=== PATIENT | female | born 1950 | race American Indian/Alaskan Native ===

== ENCOUNTER 2016-12-28 15:09 | Emergency (ER) | payer MEDICARE ==
[2016-12-28 15:39] VITALS: BP 128/75
--- NOTE | 2016-12-29 07:25 | XRay Report ---
LEFT KNEE, 3 views: History: Left knee pain after fall. The bony architecture is intact without evidence of fracture or dislocation. No significant soft tissue abnormality is seen. IMPRESSION: Left knee within normal limits.
== END 2016-12-28 19:20 | disposition left against medical advice (07) ==
LOC: ED 15:09
DX: M25.562 Pain in left knee (principal); I63.9 Cerebral infarction, unspecified; E11.9 Type 2 diabetes mellitus without complications; I10 Essential (primary) hypertension; Z53.21 Procedure and treatment not carried out due to patient leaving prior to being seen by health care provider

== ENCOUNTER 2018-03-01 12:27 | Inpatient (IN) | payer MEDICARE ==
--- NOTE | 2018-03-01 12:59 | Emergency Department Report ---
HPI - HPI HPI: 67-year-old female presents to the emergency department, driving herself in to be seen, with complaint of neck pain that has been going on since last night. She presents with a low-grade fever but denies having any symptoms of having a fever. She denies having a cough or any dysuria. She denies any headache, vision changes, chest pain, shortness of breath, nausea, vomiting. She took some type of xbsx-cji-qjmnqgd pain medication this morning without much relief. She has a past medical history of hypertension, diabetes, hyperlipidemia. Her primary care physician is Dr. Jese Jason. No recent travel or sick contacts at home. <YOSEF GALAVIZ S - Last Filed: 03/01/18 19:33> <CAROLINE SANDOVAL - Last Filed: 03/02/18 07:16> - General Chief Complaint: Neck Pain/Injury Time Seen by Provider: 03/01/18 12:47 ED Past Medical Hx - Past Medical History Hx Hypertension: Yes Hx CVA: Yes Hx Diabetes: Yes - Social History Smoking Status: Never Smoker Substance Use Type: None <YOSEF GALAVIZ S - Last Filed: 03/01/18 19:33> <CAROLINE SANDOVAL S - Last Filed: 03/02/18 07:16> - Medications Home Medications: Home Medications Medication Instructions Recorded Confirmed Last Taken Type Oseltamivir [Tamiflu] 75 mg PO BID #10 cap 08/02/16 Unknown Rx Amlodipine Besylate [Norvasc] 10 mg PO DAILY 03/02/18 03/02/18 02/28/18 History Carvedilol [Coreg] 6.25 mg PO BID 03/02/18 03/02/18 02/28/18 History Clopidogrel [Plavix] 75 mg PO QDAY 03/02/18 03/02/18 02/28/18 History Glimepiride [Amaryl] 2 mg PO QAM 03/02/18 03/02/18 02/28/18 History Losartan Potassium 100 mg PO DAILY 03/02/18 03/02/18 02/28/18 History Simvastatin [Zocor TAB] 40 mg PO QHS 03/02/18 03/02/18 02/28/18 History ED Review of Systems ROS: Stated complaint: SEVERE NECK PAIN Other details as noted in HPI Constitutional: denies: chills, weakness Eyes: denies: eye pain, eye discharge, vision change ENT: denies: ear pain, throat pain Respiratory: denies: cough, shortness of breath, wheezing Cardiovascular: denies: chest pain, palpitations Gastrointestinal: denies: abdominal pain, nausea, diarrhea Genitourinary: denies: urgency, dysuria, discharge Musculoskeletal: other (neck pain). denies: back pain Skin: denies: rash, lesions Neurological: denies: headache, weakness, paresthesias <YOSEF GALAVIZ S - Last Filed: 03/01/18 19:33> ROS: Stated complaint: SEVERE NECK PAIN Other details as noted in HPI <CAROLINE SANDOVAL S - Last Filed: 03/02/18 07:16> Physical Exam - Physical Exam Vital Signs: Vital Signs 03/01/18 12:33 Temperature 101.5 F H Pulse Rate 84 Respiratory 20 Rate Blood Pressure 166/138 O2 Sat by Pulse 96 Oximetry <YOSEF GALAVIZ S - Last Filed: 03/01/18 19:33> - Physical Exam Vital Signs: Vital Signs 03/01/18 03/01/18 03/01/18 12:33 13:39 13:45 Temperature 101.5 F H Pulse Rate 84 91 H 91 H Respiratory 20 22 Rate Blood Pressure 166/138 153/77 O2 Sat by Pulse 96 99 Oximetry 03/01/18 03/01/18 03/01/18 14:05 14:15 14:30 Temperature Pulse Rate 89 89 86 Respiratory 21 22 18 Rate Blood Pressure 153/77 137/74 144/71 O2 Sat by Pulse 99 100 98 Oximetry 03/01/18 03/01/18 03/01/18 14:45 15:00 15:15 Temperature Pulse Rate 88 84 85 Respiratory 23 27 H 26 H Rate Blood Pressure 129/67 140/67 141/73 O2 Sat by Pulse 99 97 99 Oximetry 03/01/18 03/01/18 03/01/18 15:31 15:45 16:00 Temperature Pulse Rate 84 85 84 Respiratory 25 H 22 27 H Rate Blood Pressure 94/71 136/70 132/67 O2 Sat by Pulse 97 98 Oximetry 03/01/18 03/01/18 03/01/18 16:15 16:31 16:37 Temperature 102.8 F H Pulse Rate 86 88 Respiratory 24 20 Rate Blood Pressure 132/67 120/52 O2 Sat by Pulse 97 98 Oximetry 03/01/18 03/01/18 03/01/18 16:45 17:17 17:31 Temperature Pulse Rate 85 86 90 Respiratory 17 19 18 Rate Blood Pressure 118/67 O2 Sat by Pulse 99 97 98 Oximetry 03/01/18 03/01/18 03/01/18 17:45 18:01 18:38 Temperature Pulse Rate 90 88 91 H Respiratory 18 22 29 H Rate Blood Pressure O2 Sat by Pulse 98 98 97 Oximetry 03/01/18 03/01/18 03/01/18 18:45 19:00 19:15 Temperature Pulse Rate 91 H 94 H 98 H Respiratory 30 H 28 H 26 H Rate Blood Pressure 140/65 140/65 136/70 O2 Sat by Pulse 96 96 Oximetry 03/01/18 03/01/18 03/01/18 19:31 19:45 20:00 Temperature Pulse Rate 97 H 100 H 98 H Respiratory 24 30 H 22 Rate Blood Pressure 146/81 146/81 151/74 O2 Sat by Pulse 99 98 99 Oximetry <CAROLINE SANDOVAL S - Last Filed: 03/02/18 07:16> ED Course Vital Signs 03/01/18 12:33 Temperature 101.5 F H Pulse Rate 84 Respiratory 20 Rate Blood Pressure 166/138 O2 Sat by Pulse 96 Oximetry <YOSEF GALAVIZ S - Last Filed: 03/01/18 19:33> Vital Signs 03/01/18 03/01/18 03/01/18 12:33 13:39 13:45 Temperature 101.5 F H Pulse Rate 84 91 H 91 H Respiratory 20 22 Rate Blood Pressure 166/138 153/77 O2 Sat by Pulse 96 99 Oximetry 03/01/18 03/01/18 03/01/18 14:05 14:15 14:30 Temperature Pulse Rate 89 89 86 Respiratory 21 22 18 Rate Blood Pressure 153/77 137/74 144/71 O2 Sat by Pulse 99 100 98 Oximetry 03/01/18 03/01/18 03/01/18 14:45 15:00 15:15 Temperature Pulse Rate 88 84 85 Respiratory 23 27 H 26 H Rate Blood Pressure 129/67 140/67 141/73 O2 Sat by Pulse 99 97 99 Oximetry 03/01/18 03/01/18 03/01/18 15:31 15:45 16:00 Temperature Pulse Rate 84 85 84 Respiratory 25 H 22 27 H Rate Blood Pressure 94/71 136/70 132/67 O2 Sat by Pulse 97 98 Oximetry 03/01/18 03/01/18 03/01/18 16:15 16:31 16:37 Temperature 102.8 F H Pulse Rate 86 88 Respiratory 24 20 Rate Blood Pressure 132/67 120/52 O2 Sat by Pulse 97 98 Oximetry 03/01/18 03/01/18 03/01/18 16:45 17:17 17:31 Temperature Pulse Rate 85 86 90 Respiratory 17 19 18 Rate Blood Pressure 118/67 O2 Sat by Pulse 99 97 98 Oximetry 03/01/18 03/01/18 03/01/18 17:45 18:01 18:38 Temperature Pulse Rate 90 88 91 H Respiratory 18 22 29 H Rate Blood Pressure O2 Sat by Pulse 98 98 97 Oximetry 03/01/18 03/01/18 03/01/18 18:45 19:00 19:15 Temperature Pulse Rate 91 H 94 H 98 H Respiratory 30 H 28 H 26 H Rate Blood Pressure 140/65 140/65 136/70 O2 Sat by Pulse 96 96 Oximetry 03/01/18 03/01/18 03/01/18 19:31 19:45 20:00 Temperature Pulse Rate 97 H 100 H 98 H Respiratory 24 30 H 22 Rate Blood Pressure 146/81 146/81 151/74 O2 Sat by Pulse 99 98 99 Oximetry <CAROLINE SANDOVAL S - Last Filed: 03/02/18 07:16> - Lumbar Puncture Consent Obtained: written consent Time Out Performed: Yes Indication for Procedure: fever work up, other (stiff neck) Patient Position: Sitting Upright/Leaning F Local Anesthetic Used: Lidocaine 1% Amount of anesthesia used (mls): 2 Spinal Needle Gauge: 22G Spinal Needle Length: 2in Interspace Used: L3-L4 Fluid Initially Obtained: clear Complications: none Patient Tolerated Procedure: well <YOSEF GALAVIZ S - Last Filed: 03/01/18 19:33> ED Medical Decision Making - Lab Data Result diagrams: 03/01/18 12:51 03/01/18 12:55 <YOSEF GALAVIZ S - Last Filed: 03/01/18 19:33> - Lab Data Result diagrams: 03/02/18 04:04 03/02/18 04:04 <CAROLINE SANDOVAL S - Last Filed: 03/02/18 07:16> Critical care attestation.: If time is entered above; I have spent that time in minutes in the direct care of this critically ill patient, excluding procedure time. <YOSEF GALAVIZ - Last Filed: 03/01/18 19:33> Critical care attestation.: If time is entered above; I have spent that time in minutes in the direct care of this critically ill patient, excluding procedure time. <CAROLINE SANDOVAL S - Last Filed: 03/02/18 07:16> ED Disposition Is pt being admited?: Yes Time of Disposition: 19:35 <YOSEF GALAVIZ S - Last Filed: 03/01/18 19:33> <CAROLINE SANDOVAL - Last Filed: 03/02/18 07:16> Disposition: DC-09 OP ADMIT IP TO THIS HOSP Condition: Fair
[2018-03-01] MEDS ORDERED: VALIUM IV ONE (13:22)
[2018-03-01] MEDS ORDERED: LOPRESSOR IV ONE (13:22)
[2018-03-01 13:23] LABS: Albumin 4.3 g/dL (3.9-5); Calcium 9.7 mg/dL (8.4-10.2)
[2018-03-01 13:23] LABS: Hematocrit 31.6 % (30.3-42.9); Hemoglobin 10.3 gm/dl (10.1-14.3); Mean Corpuscular HGB Conc 33 % (30-34); Mean Corpuscular Hemoglobin 31 pg (28-32); Mean Corpuscular Volume 96 fl (79-97); Platelet Count 234 K/mm3 (140-440); Red Blood Count 3.29 M/mm3 (3.65-5.03)
[2018-03-01] MEDS ORDERED: TYLENOL PO ONE ×2 (13:23→19:37)
[2018-03-01] MEDS ORDERED: FLEXERIL PO ONE (13:27)
[2018-03-01] MEDS ORDERED: MORPHINE IV ONE ×2 (14:08→17:56)
--- NOTE | 2018-03-01 14:21 | XRay Report ---
AP CHEST: HISTORY: Fever Mild cardiomegaly is suspected which appears to be new since 08/02/16. Normal pulmonary vascularity. The lungs are clear. No pleural effusion or pneumothorax. The bony structures are grossly intact. IMPRESSION: Mild cardiomegaly. Lungs clear.
[2018-03-01 14:24] LABS: Basophils % (Manual) 0 % (0.0-1.8); Eosinophils % (Manual) 0 % (0.0-4.3); Total Cells Counted 100
[2018-03-01 14:25] LABS: Anisocytosis 1+; Platelet Estimate Cons
[2018-03-01 16:59] LABS: Bacteria,Urine 1+ /HPF (Negative); Bilirubin,Urine NEG (Negative); Blood,Urine NEG (Negative); Color,Urine Yellow (Yellow); Mucus,Urine FEW /HPF; Urobilinogen,Urine < 2.0 mg/dL (<2.0)
--- NOTE | 2018-03-01 17:26 | Cat Scan Report ---
FINAL REPORT PROCEDURE: CT HEAD/BRAIN WO CON TECHNIQUE: Computerized tomography of the head was performed without contrast material. HISTORY: Headache COMPARISON: No prior studies are available for comparison. FINDINGS: No CT evidence of intracranial hemorrhage, acute territorial infarction, or hydrocephalus. Although not fully evaluated, the pituitary gland may be enlarged. There are mild chronic microvascular ischemic changes, with white matter low-attenuation identified. No acute fracture is seen. The visualized paranasal sinuses and mastoids are aerated. IMPRESSION: Although not fully evaluated, the pituitary gland may be enlarged. Further evaluation with dedicated MRI of the sella with contrast could be obtained.
[2018-03-01] MEDS ORDERED: XYLOCAINE 1% 20 mL ONE (17:37)
[2018-03-01] MEDS ORDERED: NACL 0.9% 1000 ML 1,000 ML IV ONE (17:55)
[2018-03-01] MEDS ORDERED: ROCEPHIN/NS 2 GM/100 ML 2 GM/100 ML BAG IV ONE (17:57)
[2018-03-01] MEDS ORDERED: VANCOMYCIN 1,250 MG in NACL 0.9% 500 ML 500 ML IV ONE (17:57)
--- NOTE | 2018-03-01 18:27 | Cat Scan Report ---
FINAL REPORT PROCEDURE: CT CERVICAL SPINE WO CON TECHNIQUE: Computerized tomography of the cervical spine was performed from the skull base to T1 without contrast material. HISTORY: neck pain COMPARISON: No prior studies are available for comparison. FINDINGS: There is straightening of the usual cervical lordosis. There are multilevel degenerative disc changes, with disc space narrowing and osteophyte formation. There are osteoarthritic changes of the atlantodental articulation. There is a chronic appearing defect in the posterior arch of C1, which is likely developmental. There is no acute fracture or subluxation identified. There is bilateral cervical lymphadenopathy, with significantly enlarged lymph nodes, measuring up to 13 millimeters short axis. IMPRESSION: No acute osseous abnormality is seen. Bilateral significant cervical adenopathy. Findings could be related to an infectious or inflammatory process. Recommend further evaluation to exclude metastatic disease process.
[2018-03-01 19:05] LABS: Appearance,CSF Clear; Red Blood Cell,CSF 0 /mm3 (0-0); White Blood Cell,CSF 1 /mm3 (1-10)
[2018-03-01 19:06] LABS: Appearance,CSF Clear; Red Blood Cell,CSF 0 /mm3 (0-0); White Blood Cell,CSF 1 /mm3 (1-10)
[2018-03-01 19:19] LABS: Basophils CSF 0 %
[2018-03-01 19:20] LABS: Basophils CSF 0 %
--- NOTE | 2018-03-01 21:40 | XRay Report ---
FINAL REPORT PROCEDURE: XR SPINE LUMBOSACRAL 2-3V TECHNIQUE: Lumbar spine radiographs, including AP, cross-table lateral, and lumbosacral spot views. CPT 86459 HISTORY: back pain COMPARISON: No prior studies are available for comparison. FINDINGS: Vertebral height and alignment are within normal limits. There is mild degree narrowing of the intervertebral disc space at L3-4 through L5-S1 associated with mild to moderate degree marginal osteophyte formation. Pre and paravertebral soft tissues are within normal limits. IMPRESSION: Multilevel lumbar spondylosis No acute fracture.
--- NOTE | 2018-03-01 21:42 | XRay Report ---
FINAL REPORT PROCEDURE: XR SPINE THORACIC 3V TECHNIQUE: Thoracic spine radiographs including AP, lateral, and Swimmer's views. CPT 11655 HISTORY: Back pain COMPARISON: No prior studies are available for comparison. FINDINGS: Vertebral height is within normal limits. There is evidence of idiopathic skeletal hyperostosis. An acute fracture is not identified. Subtle dextroscoliosis of the thoracic spine is noted. Pre and paravertebral soft tissues are within normal limits. Intervertebral disc spaces are well maintained. IMPRESSION: No acute abnormality..
--- NOTE | 2018-03-01 22:18 | History and Physical Report ---
History of Present Illness Date of examination: 03/01/18 Date of admission: 03/01/18 19:35 Chief complaint: CC Severe neck pain 1 day History of present illness: VANESA: 67-year-old female presents to the emergency department, driving herself in to be seen, with complaints of neck pain that has been going on since last night. She presents with a low-grade fever but denies having any symptoms of having a fever.Pain is 10/10 She denies having a cough or any dysuria. She denies any headache, vision changes, chest pain, shortness of breath, nausea, vomiting. She took some type of pknn-sbf-cizazul pain medication this morning without much relief. She has a past medical history of hypertension, diabetes, hyperlipidemia. No recent travel or sick contacts at home. Past Medical History Hypertension: Yes CVA: Yes Diabetes: Yes Social History Smoking Status: Never Smoker Substance Use Type: None Medications Home Medications: Home Medications Medication Instructions Recorded Confirmed Last Taken Type Oseltamivir [Tamiflu] 75 mg PO BID #10 cap 08/02/16 Unknown Rx Review of systems ROS: Stated complaint: SEVERE NECK PAIN Other details as noted in HPI Constitutional: denies: chills, weakness Eyes: denies: eye pain, eye discharge, vision change ENT: denies: ear pain, throat pain Respiratory: denies: cough, shortness of breath, wheezing Cardiovascular: denies: chest pain, palpitations Gastrointestinal: denies: abdominal pain, nausea, diarrhea Genitourinary: denies: urgency, dysuria, discharge Musculoskeletal: other (neck pain). denies: back pain Skin: denies: rash, lesions Neurological: denies: headache, weakness, paresthesias Medications and Allergies Allergies Allergy/AdvReac Type Severity Reaction Status Date / Time No Known Allergies Allergy Verified 03/01/18 23:01 Home Medications Medication Instructions Recorded Confirmed Last Taken Type Oseltamivir [Tamiflu] 75 mg PO BID #10 cap 08/02/16 Unknown Rx Amlodipine Besylate [Norvasc] 10 mg PO DAILY 03/02/18 03/02/18 02/28/18 History Carvedilol [Coreg] 6.25 mg PO BID 03/02/18 03/02/18 02/28/18 History Clopidogrel [Plavix] 75 mg PO QDAY 03/02/18 03/02/18 02/28/18 History Glimepiride [Amaryl] 2 mg PO QAM 03/02/18 03/02/18 02/28/18 History Losartan Potassium 100 mg PO DAILY 03/02/18 03/02/18 02/28/18 History Simvastatin [Zocor TAB] 40 mg PO QHS 03/02/18 03/02/18 02/28/18 History Exam - Constitutional Vitals: Temp Pulse Resp BP Pulse Ox 102.8 F H 98 H 22 151/74 99 03/01/18 16:37 03/01/18 20:00 03/01/18 20:00 03/01/18 20:00 03/01/18 20:00 General appearance: Present: no acute distress, well-nourished - EENT Eyes: Present: PERRL ENT: hearing intact, clear oral mucosa - Neck Neck: Present: supple, normal ROM - Respiratory Respiratory effort: normal Respiratory: bilateral: CTA - Cardiovascular Heart rate: 70 Rhythm: regular Heart Sounds: Present: S1 & S2. Absent: rub, click - Extremities Extremities: no ischemia, pulses intact, pulses symmetrical, No edema Peripheral Pulses: within normal limits - Abdominal General gastrointestinal: Present: soft, non-tender, non-distended, normal bowel sounds Female genitourinary: Present: normal - Rectal Rectal Exam: deferred - Integumentary Integumentary: Present: clear, warm, dry - Musculoskeletal Musculoskeletal: gait normal, strength equal bilaterally - Psychiatric Psychiatric: appropriate mood/affect, intact judgment & insight - Neurologic Neurologic: CNII-XII intact, moves all extremities - Allied Health Allied health notes reviewed: nursing, case management Results - Labs CBC & Chem 7: 03/02/18 04:04 03/02/18 04:04 Labs: Laboratory Last Values WBC 9.0 K/mm3 (4.5-11.0) 03/01/18 12:51 RBC 3.29 M/mm3 (3.65-5.03) L 03/01/18 12:51 Hgb 10.3 gm/dl (10.1-14.3) 03/01/18 12:51 Hct 31.6 % (30.3-42.9) 03/01/18 12:51 MCV 96 fl (79-97) 03/01/18 12:51 MCH 31 pg (28-32) 03/01/18 12:51 MCHC 33 % (30-34) 03/01/18 12:51 RDW 15.0 % (13.2-15.2) 03/01/18 12:51 Plt Count 234 K/mm3 (140-440) 03/01/18 12:51 Add Manual Diff Complete 03/01/18 12:51 Total Counted 100 03/01/18 12:51 Seg Neuts % (Manual) 42.0 % (40.0-70.0) 03/01/18 12:51 Band Neutrophils % 0 % 03/01/18 12:51 Lymphocytes % (Manual) 55.0 % (13.4-35.0) H 03/01/18 12:51 Reactive Lymphs % (Man) 1.0 % 03/01/18 12:51 Monocytes % (Manual) 2.0 % (0.0-7.3) 03/01/18 12:51 Eosinophils % (Manual) 0 % (0.0-4.3) 03/01/18 12:51 Basophils % (Manual) 0 % (0.0-1.8) 03/01/18 12:51 Metamyelocytes % 0 % 03/01/18 12:51 Myelocytes % 0 % 03/01/18 12:51 Promyelocytes % 0 % 03/01/18 12:51 Blast Cells % 0 % 03/01/18 12:51 Nucleated RBC % Not Reportable 03/01/18 12:51 Seg Neutrophils # Man 3.8 K/mm3 (1.8-7.7) 03/01/18 12:51 Band Neutrophils # 0.0 K/mm3 03/01/18 12:51 Lymphocytes # (Manual) 5.0 K/mm3 (1.2-5.4) 03/01/18 12:51 Abs React Lymphs (Man) 0.1 K/mm3 03/01/18 12:51 Monocytes # (Manual) 0.2 K/mm3 (0.0-0.8) 03/01/18 12:51 Eosinophils # (Manual) 0.0 K/mm3 (0.0-0.4) 03/01/18 12:51 Basophils # (Manual) 0.0 K/mm3 (0.0-0.1) 03/01/18 12:51 Metamyelocytes # 0.0 K/mm3 03/01/18 12:51 Myelocytes # 0.0 K/mm3 03/01/18 12:51 Promyelocytes # 0.0 K/mm3 03/01/18 12:51 Blast Cells # 0.0 K/mm3 03/01/18 12:51 WBC Morphology Not Reportable 03/01/18 12:51 Hypersegmented Neuts Not Reportable 03/01/18 12:51 Hyposegmented Neuts Not Reportable 03/01/18 12:51 Hypogranular Neuts Not Reportable 03/01/18 12:51 Smudge Cells Not Reportable 03/01/18 12:51 Toxic Granulation Not Reportable 03/01/18 12:51 Toxic Vacuolation Not Reportable 03/01/18 12:51 Dohle Bodies Not Reportable 03/01/18 12:51 Pelger-Huet Anomaly Not Reportable 03/01/18 12:51 Mina Rods Not Reportable 03/01/18 12:51 Platelet Estimate Cons 03/01/18 12:51 Clumped Platelets Not Reportable 03/01/18 12:51 Plt Clumps, EDTA Not Reportable 03/01/18 12:51 Large Platelets Not Reportable 03/01/18 12:51 Giant Platelets Not Reportable 03/01/18 12:51 Platelet Satelliting Not Reportable 03/01/18 12:51 Plt Morphology Comment Not Reportable 03/01/18 12:51 RBC Morphology Not Reportable 03/01/18 12:51 Dimorphic RBCs Not Reportable 03/01/18 12:51 Polychromasia Not Reportable 03/01/18 12:51 Hypochromasia Not Reportable 03/01/18 12:51 Poikilocytosis Not Reportable 03/01/18 12:51 Anisocytosis 1+ 03/01/18 12:51 Microcytosis Not Reportable 03/01/18 12:51 Macrocytosis Not Reportable 03/01/18 12:51 Spherocytes Not Reportable 03/01/18 12:51 Pappenheimer Bodies Not Reportable 03/01/18 12:51 Sickle Cells Not Reportable 03/01/18 12:51 Target Cells Not Reportable 03/01/18 12:51 Tear Drop Cells Not Reportable 03/01/18 12:51 Ovalocytes Not Reportable 03/01/18 12:51 Helmet Cells Not Reportable 03/01/18 12:51 Patiño-[place] Bodies Not Reportable 03/01/18 12:51 [place] Rings Not Reportable 03/01/18 12:51 Rosaura Cells Not Reportable 03/01/18 12:51 Bite Cells Not Reportable 03/01/18 12:51 Crenated Cell Not Reportable 03/01/18 12:51 Elliptocytes Not Reportable 03/01/18 12:51 Acanthocytes (Spur) Not Reportable 03/01/18 12:51 Rouleaux Not Reportable 03/01/18 12:51 Hemoglobin C Crystals Not Reportable 03/01/18 12:51 Schistocytes Not Reportable 03/01/18 12:51 Malaria parasites Not Reportable 03/01/18 12:51 [place] Bodies Not Reportable 03/01/18 12:51 Hem Pathologist Commnt No 03/01/18 12:51 Sodium 136 mmol/L (137-145) L 03/01/18 12:55 Potassium 5.0 mmol/L (3.6-5.0) 03/01/18 12:55 Chloride 98.4 mmol/L (98-107) 03/01/18 12:55 Carbon Dioxide 22 mmol/L (22-30) 03/01/18 12:55 Anion Gap 21 mmol/L 03/01/18 12:55 BUN 24 mg/dL (7-17) H 03/01/18 12:55 Creatinine 1.6 mg/dL (0.7-1.2) H 03/01/18 12:55 Estimated GFR 39 ml/min 03/01/18 12:55 BUN/Creatinine Ratio 15 % 03/01/18 12:55 Glucose 170 mg/dL (65-100) H 03/01/18 12:55 Lactic Acid 0.50 mmol/L (0.7-2.0) L 03/01/18 12:55 Calcium 9.7 mg/dL (8.4-10.2) 03/01/18 12:55 Total Bilirubin 0.80 mg/dL (0.1-1.2) 03/01/18 12:55 AST 12 units/L (5-40) 03/01/18 12:55 ALT 9 units/L (7-56) 03/01/18 12:55 Alkaline Phosphatase 87 units/L (35-129) 03/01/18 12:55 Total Creatine Kinase 38 units/L (30-135) 03/01/18 12:55 Total Protein 7.2 g/dL (6.3-8.2) 03/01/18 12:55 Albumin 4.3 g/dL (3.9-5) 03/01/18 12:55 Albumin/Globulin Ratio 1.5 % 03/01/18 12:55 Urine Color Yellow (Yellow) 03/01/18 Unknown Urine Turbidity Clear (Clear) 03/01/18 Unknown Urine pH 5.0 (5.0-7.0) 03/01/18 Unknown Ur Specific [place] 1.016 (1.003-1.030) 03/01/18 Unknown Urine Protein 30 mg/dl mg/dL (Negative) 03/01/18 Unknown Urine Glucose (UA) Neg mg/dL (Negative) 03/01/18 Unknown Urine Ketones Neg mg/dL (Negative) 03/01/18 Unknown Urine Blood Neg (Negative) 03/01/18 Unknown Urine Nitrite Neg (Negative) 03/01/18 Unknown Urine Bilirubin Neg (Negative) 03/01/18 Unknown Urine Urobilinogen < 2.0 mg/dL (<2.0) 03/01/18 Unknown Ur Leukocyte Esterase Neg (Negative) 03/01/18 Unknown Urine WBC (Auto) 2.0 /HPF (0.0-6.0) 03/01/18 Unknown Urine RBC (Auto) 6.0 /HPF (0.0-6.0) 03/01/18 Unknown U Epithel Cells (Auto) 2.0 /HPF (0-13.0) 03/01/18 Unknown Urine Bacteria (Auto) 1+ /HPF (Negative) 03/01/18 Unknown Urine Mucus Few /HPF 03/01/18 Unknown CSF Appearance Clear 03/01/18 17:45 CSF Color Colorless 03/01/18 17:45 CSF WBC 1 /mm3 (1-10) 03/01/18 17:45 CSF RBC 0 /mm3 (0-0) 03/01/18 17:45 CSF Seg Neutrophils 0 % (0-6) 03/01/18 17:45 CSF Lymphocytes % 0 % (40-80) 03/01/18 17:45 CSF Reactive Lymphs 0 % 03/01/18 17:45 CSF Monocytes % 0 % (15-45) 03/01/18 17:45 CSF Eosinophils % 0 % 03/01/18 17:45 CSF Basophils 0 % 03/01/18 17:45 CSF Comment No cells seen 03/01/18 17:45 CSF Pathologist Review C 03/01/18 17:45 CSF Glucose 91 mg/dL 03/01/18 17:45 CSF Total Protein 33 mg/dL 03/01/18 17:45 - Imaging and Cardiology Chest x-ray: report reviewed (NAF) Imaging and Cardiology: Head CT IMPRESSION: Although not fully evaluated, the pituitary gland may be enlarged. Further evaluation with dedicated MRI of the sella with contrast could be obtained. C spine CT FINDINGS: There is straightening of the usual cervical lordosis. There are multilevel degenerative disc changes, with disc space narrowing and osteophyte formation. There are osteoarthritic changes of the atlantodental articulation. There is a chronic appearing defect in the posterior arch of C1, which is likely developmental. There is no acute fracture or subluxation identified. There is bilateral cervical lymphadenopathy, with significantly enlarged lymph nodes, measuring up to 13 millimeters short axis. IMPRESSION: No acute osseous abnormality is seen. Bilateral significant cervical adenopathy. Findings could be related to an infectious or inflammatory process. Recommend further evaluation to exclude metastatic disease process. L spine Significant spondylosis Assessment and Plan Advance Directives: Yes (FC) VTE prophylaxis?: Chemical Plan of care discussed with patient/family: Yes - Patient Problems (1) SIRS (systemic inflammatory response syndrome) Current Visit: Yes Status: Acute Plan to address problem: Patient hasfever andsevere neck pain LP was negative Initiated on Rocephin empirically (2) QUIRINO (acute kidney injury) Current Visit: Yes Status: Acute Plan to address problem: IV fluids for now (3) Cervical lymphadenopathy Current Visit: Yes Status: Acute Plan to address problem: CT chest ordered to r/o mediastinal Lymphadenopathy (4) Enlarged pituitary gland Current Visit: Yes Status: Chronic Plan to address problem: On CT heas Will defer to Hospitalist team reg MRI (5) HTN (hypertension) Current Visit: Yes Status: Chronic Qualifiers: Hypertension type: essential hypertension Qualified Code(s): I10 - Essential (primary) hypertension Plan to address problem: Cont antihypertensives (6) T2DM (type 2 diabetes mellitus) Current Visit: Yes Status: Chronic Qualifiers: Diabetes mellitus mcc insulin use: without material controller use Plan to address problem: Coverage for now (7) HLD (hyperlipidemia) Current Visit: Yes Status: Chronic Qualifiers: Hyperlipidemia type: mixed hyperlipidemia Qualified Code(s): E78.2 - Mixed hyperlipidemia Plan to address problem: Statins (8) DVT prophylaxis Current Visit: Yes Status: Acute Plan to address problem: on Lovenox
[2018-03-01] MEDS ORDERED: ZOFRAN IV PRN (22:19)
[2018-03-01] MEDS ORDERED: SODIUM CHLORIDE FLUSH SYRINGE 10 ML IV PRN (22:19)
[2018-03-01] MEDS ORDERED: MOTRIN PO PRN (22:19)
[2018-03-01] MEDS ORDERED: PERCOCET 5/325 PO PRN (22:19)
[2018-03-01] MEDS ORDERED: NACL 0.9% 1000 ML 1,000 ML IV SCH (23:00)
[2018-03-01] MEDS: TYLENOL PO PRN (23:10)
[2018-03-02] MEDS: MORPHINE IV PRN ×2 (03:55→17:53)
[2018-03-02 04:39] LABS: Hematocrit 28.5 % (30.3-42.9); Hemoglobin 9.5 gm/dl (10.1-14.3); Mean Corpuscular HGB Conc 33 % (30-34); Mean Corpuscular Hemoglobin 32 pg (28-32); Mean Corpuscular Volume 95 fl (79-97); Platelet Count 182 K/mm3 (140-440); Red Blood Count 3.01 M/mm3 (3.65-5.03)
[2018-03-02 05:14] LABS: Albumin 3.8 g/dL (3.9-5); Calcium 8.7 mg/dL (8.4-10.2)
[2018-03-02] MEDS ORDERED: NACL 0.9% 1000 ML 1,000 ML IV ONE (08:00)
[2018-03-02 08:42] LABS: Total Cells Counted 100
[2018-03-02 08:49] LABS: Band Neutrophils # (Manual) 0.1 K/mm3; Basophils % (Manual) 0 % (0.0-1.8); Eosinophils % (Manual) 0 % (0.0-4.3)
[2018-03-02 08:51] LABS: Anisocytosis 1+
[2018-03-02 08:52] LABS: Acanthocytes Few; Poikilocytosis 1+; Tear Drop Cells Few
[2018-03-02 08:53] LABS: Platelet Estimate Consistent w Auto
--- NOTE | 2018-03-02 09:44 | Cat Scan Report ---
CT CHEST WITHOUT CONTRAST INDICATION: Cervical lymphadenopathy. COMPARISON: None similar. FINDINGS: Noncontrast chest CT demonstrates borderline cardiomegaly. Mild coronary and aortic atherosclerotic calcifications. Assessment of the great vessels and for detecting subtle lymphadenopathy limited due to lack of IV contrast. However, extensive multistation intrathoracic right paratracheal, subcarinal and possibly hilar lymphadenopathy suspected. Large bilateral axillary lymph nodes also seen, the largest on the left approximately 6.5 x 4 cm as on axial image 44, series 2 and would be amenable to percutaneous imaging guided biopsy, if warranted. Patent central airway. No aortic aneurysm. Normal imaged thyroid. Few bilateral supraclavicular/lower cervical lymph nodes also seen. Few other bilateral subpectoral and chest wall lymph nodes also noted. Lungs grossly clear, though motion artifact partly degrades exam. An approximately 1 cm right cardiophrenic angle lymph node anteriorly, axial image 90, series 2 as also a 2.2 cm right retrocrural lymph node, axial image 91. Included upper abdominal extensive lymphadenopathy also noted. 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 CONCLUSION: 1. Extensive multistation intrathoracic, bilateral axillary and included upper abdominal lymphadenopathy on this limited, unenhanced exam may represent underlying lymphoma, amongst others, in this patient with known cervical lymphadenopathy, as described. Please correlate. 2. Few other incidental findings, as above. Thank you for the opportunity to participate in this patient's care.
[2018-03-02] MEDS ORDERED: NON-FORMULARY (Losartan Potassium [Losartan Potassium] 100 MG) PO SCH (10:00)
[2018-03-02] MEDS: PERCOCET 5/325 PO PRN ×2 (11:43→20:58)
[2018-03-02 11:44] LABS: Calcium 8.7 mg/dL (8.4-10.2)
[2018-03-02] MEDS: NORVASC PO SCH (11:44)
[2018-03-02] MEDS: COREG PO SCH ×2 (11:44→21:04)
[2018-03-02] MEDS: LOVENOX SUB-Q SCH (11:44)
[2018-03-02] MEDS: ROCEPHIN/NS 2 GM/100 ML 2 GM/100 ML BAG IV SCH (11:44)
[2018-03-02] MEDS: PLAVIX PO SCH (11:45)
[2018-03-02] MEDS: SODIUM CHLORIDE FLUSH SYRINGE 10 ML IV SCH ×2 (11:46→21:04)
[2018-03-02] MEDS: AMARYL PO SCH (11:57)
[2018-03-02] MEDS: NACL 0.9% 1000 ML 1,000 ML IV SCH (12:00)
[2018-03-02] MEDS: COZAAR PO SCH (12:00)
--- NOTE | 2018-03-02 12:58 | Progress Note ---
Assessment and Plan Assessment and plan: 67-year-old female was presented to the emergency department yesterday complaining of fever and neck pain for the last 2 days. Patient denied nausea, vomiting, headache. Neck pain SIRS evidenced by fever and tachycardia Bacteremia Chronic kidney disease - pain control - Patient was empirically placed on IV Rocephin - Blood cultures positive for group B streptococcus - ID consulted - CSF is negative DVT prophylaxis - On heparin Disposition - Continue inpatient care History Interval history: Patient was seen and evaluated this morning, patient is complaining neck pain. No nausea, vomiting, headache. Hospitalist Physical - Physical exam Narrative exam: Not in cardiopulmonary distress. The patient appeared well nourished and normally developed. Neck tenderness Vital signs as documented. Head exam is unremarkable. No scleral icterus . Neck is without jugular venous distension, thyromegaly, or carotid bruits. Lungs are clear to auscultation. Cardiac exam reveals regular rate and Rhythm. First and second heart sounds normal. No murmurs, rubs or gallops. Abdominal exam reveals normal bowel sounds, no masses, no organomegaly and no aortic enlargement. Extremities are nonedematous and both femoral and pedal pulses are normal. E LEARNING DEVELOPER: Alert and oriented 3. Negative meningeal signs - Constitutional Vitals: Temp Pulse Resp BP Pulse Ox 98.2 F 77 18 120/63 96 03/02/18 12:00 03/02/18 12:00 03/02/18 12:00 03/02/18 12:00 03/02/18 12:00 General appearance: Present: no acute distress, well-nourished Results - Labs CBC & Chem 7: 03/02/18 04:04 03/02/18 11:16 Labs: Laboratory Last Values WBC 10.2 K/mm3 (4.5-11.0) 03/02/18 04:04 RBC 3.01 M/mm3 (3.65-5.03) L 03/02/18 04:04 Hgb 9.5 gm/dl (10.1-14.3) L 03/02/18 04:04 Hct 28.5 % (30.3-42.9) L 03/02/18 04:04 MCV 95 fl (79-97) 03/02/18 04:04 MCH 32 pg (28-32) 03/02/18 04:04 MCHC 33 % (30-34) 03/02/18 04:04 RDW 15.0 % (13.2-15.2) 03/02/18 04:04 Plt Count 182 K/mm3 (140-440) 03/02/18 04:04 Lymph % (Auto) Board Worker 03/02/18 04:04 Lymph # Board Worker 03/02/18 04:04 Add Manual Diff Complete 03/01/18 12:51 Total Counted 100 03/02/18 04:04 Seg Neutrophils % Board Worker 03/02/18 04:04 Seg Neuts % (Manual) 18.0 % (40.0-70.0) L 03/02/18 04:04 Band Neutrophils % 1.0 % 03/02/18 04:04 Lymphocytes % (Manual) 68.0 % (13.4-35.0) H 03/02/18 04:04 Reactive Lymphs % (Man) 11.0 % 03/02/18 04:04 Monocytes % (Manual) 2.0 % (0.0-7.3) 03/02/18 04:04 Eosinophils % (Manual) 0 % (0.0-4.3) 03/02/18 04:04 Basophils % (Manual) 0 % (0.0-1.8) 03/02/18 04:04 Metamyelocytes % 0 % 03/02/18 04:04 Myelocytes % 0 % 03/02/18 04:04 Promyelocytes % 0 % 03/02/18 04:04 Blast Cells % 0 % 03/02/18 04:04 Nucleated RBC % Not Reportable 03/02/18 04:04 Seg Neutrophils # Man 1.8 K/mm3 (1.8-7.7) 03/02/18 04:04 Band Neutrophils # 0.1 K/mm3 03/02/18 04:04 Lymphocytes # (Manual) 6.9 K/mm3 (1.2-5.4) H 03/02/18 04:04 Abs React Lymphs (Man) 1.1 K/mm3 03/02/18 04:04 Monocytes # (Manual) 0.2 K/mm3 (0.0-0.8) 03/02/18 04:04 Eosinophils # (Manual) 0.0 K/mm3 (0.0-0.4) 03/02/18 04:04 Basophils # (Manual) 0.0 K/mm3 (0.0-0.1) 03/02/18 04:04 Metamyelocytes # 0.0 K/mm3 03/02/18 04:04 Myelocytes # 0.0 K/mm3 03/02/18 04:04 Promyelocytes # 0.0 K/mm3 03/02/18 04:04 Blast Cells # 0.0 K/mm3 03/02/18 04:04 Pathologist Review 03/02/18 04:04 WBC Morphology Not Reportable 03/02/18 04:04 Hypersegmented Neuts Not Reportable 03/02/18 04:04 Hyposegmented Neuts Not Reportable 03/02/18 04:04 Hypogranular Neuts Not Reportable 03/02/18 04:04 Smudge Cells Not Reportable 03/02/18 04:04 Toxic Granulation Not Reportable 03/02/18 04:04 Toxic Vacuolation Not Reportable 03/02/18 04:04 Dohle Bodies Not Reportable 03/02/18 04:04 Pelger-Huet Anomaly Not Reportable 03/02/18 04:04 Mina Rods Not Reportable 03/02/18 04:04 Platelet Estimate Consistent w auto 03/02/18 04:04 Clumped Platelets Not Reportable 03/02/18 04:04 Plt Clumps, EDTA Not Reportable 03/02/18 04:04 Large Platelets Not Reportable 03/02/18 04:04 Giant Platelets Not Reportable 03/02/18 04:04 Platelet Satelliting Not Reportable 03/02/18 04:04 Plt Morphology Comment Not Reportable 03/02/18 04:04 RBC Morphology Not Reportable 03/02/18 04:04 Dimorphic RBCs Not Reportable 03/02/18 04:04 Polychromasia Not Reportable 03/02/18 04:04 Hypochromasia Not Reportable 03/02/18 04:04 Poikilocytosis 1+ 03/02/18 04:04 Anisocytosis 1+ 03/02/18 04:04 Microcytosis Not Reportable 03/02/18 04:04 Macrocytosis Not Reportable 03/02/18 04:04 Spherocytes Not Reportable 03/02/18 04:04 Pappenheimer Bodies Not Reportable 03/02/18 04:04 Sickle Cells Not Reportable 03/02/18 04:04 Target Cells Not Reportable 03/02/18 04:04 Tear Drop Cells Few 03/02/18 04:04 Ovalocytes Not Reportable 03/02/18 04:04 Helmet Cells Not Reportable 03/02/18 04:04 Pat[place] Bodies Not Reportable 03/02/18 04:04 [place] Rings Not Reportable 03/02/18 04:04 [place]aura Cells Not Reportable 03/02/18 04:04 Bite Cells Not Reportable 03/02/18 04:04 Crenated Cell Not Reportable 03/02/18 04:04 Elliptocytes Few 03/02/18 04:04 Acanthocytes (Spur) Few 03/02/18 04:04 Rouleaux Not Reportable 03/02/18 04:04 Hemoglobin C Crystals Not Reportable 03/02/18 04:04 Schistocytes Not Reportable 03/02/18 04:04 Malaria parasites Not Reportable 03/02/18 04:04 [place] Bodies Not Reportable 03/02/18 04:04 Hem Pathologist Commnt Sent to pathology 03/02/18 04:04 Sodium 139 mmol/L (137-145) 03/02/18 11:16 Potassium 4.1 mmol/L (3.6-5.0) 03/02/18 11:16 Chloride 104.3 mmol/L (98-107) 03/02/18 11:16 Carbon Dioxide 18 mmol/L (22-30) L 03/02/18 11:16 Anion Gap 21 mmol/L 03/02/18 11:16 BUN 24 mg/dL (7-17) H 03/02/18 11:16 Creatinine 1.4 mg/dL (0.7-1.2) H 03/02/18 11:16 Estimated GFR 45 ml/min 03/02/18 11:16 BUN/Creatinine Ratio 17 % 03/02/18 11:16 Glucose 152 mg/dL (65-100) H 03/02/18 11:16 Hemoglobin A1c 6.4 % (4-6) H 03/02/18 00:31 Lactic Acid 0.50 mmol/L (0.7-2.0) L 03/01/18 12:55 Calcium 8.7 mg/dL (8.4-10.2) 03/02/18 11:16 Total Bilirubin 0.60 mg/dL (0.1-1.2) 03/02/18 04:04 AST 11 units/L (5-40) 03/02/18 04:04 ALT 7 units/L (7-56) 03/02/18 04:04 Alkaline Phosphatase 73 units/L (35-129) 03/02/18 04:04 Total Creatine Kinase 38 units/L (30-135) 03/01/18 12:55 Total Protein 6.3 g/dL (6.3-8.2) 03/02/18 04:04 Albumin 3.8 g/dL (3.9-5) L 03/02/18 04:04 Albumin/Globulin Ratio 1.5 % 03/02/18 04:04 Urine Color Yellow (Yellow) 03/01/18 Unknown Urine Turbidity Clear (Clear) 03/01/18 Unknown Urine pH 5.0 (5.0-7.0) 03/01/18 Unknown Ur Specific [place] 1.016 (1.003-1.030) 03/01/18 Unknown Urine Protein 30 mg/dl mg/dL (Negative) 03/01/18 Unknown Urine Glucose (UA) Neg mg/dL (Negative) 03/01/18 Unknown Urine Ketones Neg mg/dL (Negative) 03/01/18 Unknown Urine Blood Neg (Negative) 03/01/18 Unknown Urine Nitrite Neg (Negative) 03/01/18 Unknown Urine Bilirubin Neg (Negative) 03/01/18 Unknown Urine Urobilinogen < 2.0 mg/dL (<2.0) 03/01/18 Unknown Ur Leukocyte Esterase Neg (Negative) 03/01/18 Unknown Urine WBC (Auto) 2.0 /HPF (0.0-6.0) 03/01/18 Unknown Urine RBC (Auto) 6.0 /HPF (0.0-6.0) 03/01/18 Unknown U Epithel Cells (Auto) 2.0 /HPF (0-13.0) 03/01/18 Unknown Urine Bacteria (Auto) 1+ /HPF (Negative) 03/01/18 Unknown Urine Mucus Few /HPF 03/01/18 Unknown CSF Appearance Clear 03/01/18 17:45 CSF Color Colorless 03/01/18 17:45 CSF WBC 1 /mm3 (1-10) 03/01/18 17:45 CSF RBC 0 /mm3 (0-0) 03/01/18 17:45 CSF Seg Neutrophils 0 % (0-6) 03/01/18 17:45 CSF Lymphocytes % 0 % (40-80) 03/01/18 17:45 CSF Reactive Lymphs 0 % 03/01/18 17:45 CSF Monocytes % 0 % (15-45) 03/01/18 17:45 CSF Eosinophils % 0 % 03/01/18 17:45 CSF Basophils 0 % 03/01/18 17:45 CSF Comment No cells seen 03/01/18 17:45 CSF Pathologist Review C 03/01/18 17:45 CSF Glucose 91 mg/dL 03/01/18 17:45 CSF Total Protein 33 mg/dL 03/01/18 17:45
[2018-03-02] MEDS: PRAVACHOL PO SCH (21:04)
--- NOTE | 2018-03-02 21:51 | Consultation ---
History of Present Illness - Reason for Consult Consult date: 03/02/18 multiple lymph nodes/painfull. Requesting physician: ANIYAH BENAVIDES - History of Present Illness Thank you for this consult, patient seen/examined, record/notes reviewed, case d /w her. She states all that she is concerned about at the moment ,is the pain in the neck area. CT of the chest obviously reveals multiple LN, suspicious in nature. She will need tissue bx for dx.She will need pain control.will do some peculiar labs.will follow you. She may need BM bx if bx positive for Lymphoma. Most of her care will be out patient any how.For now, control pain. Past History Past Medical History: diabetes, hypertension, stroke Medications and Allergies Allergies Allergy/AdvReac Type Severity Reaction Status Date / Time No Known Allergies Allergy Verified 03/01/18 23:01 Home Medications Medication Instructions Recorded Confirmed Last Taken Type Oseltamivir [Tamiflu] 75 mg PO BID #10 cap 08/02/16 Unknown Rx Amlodipine Besylate [Norvasc] 10 mg PO DAILY 03/02/18 03/02/18 02/28/18 History Carvedilol [Coreg] 6.25 mg PO BID 03/02/18 03/02/18 02/28/18 History Clopidogrel [Plavix] 75 mg PO QDAY 03/02/18 03/02/18 02/28/18 History Glimepiride [Amaryl] 2 mg PO QAM 03/02/18 03/02/18 02/28/18 History Losartan Potassium 100 mg PO DAILY 03/02/18 03/02/18 02/28/18 History Simvastatin [Zocor TAB] 40 mg PO QHS 03/02/18 03/02/18 02/28/18 History Active Meds: Active Medications Acetaminophen (Tylenol) 650 mg PO Q4H PRN PRN Reason: Pain MILD(1-3)/Fever >100.5/SALMON Last Admin: 03/01/18 23:10 Dose: 650 mg Amlodipine Besylate (Norvasc) 10 mg PO DAILY [facility] Last Admin: 03/02/18 11:44 Dose: 10 mg Carvedilol (Coreg) 6.25 mg PO BID [facility] Last Admin: 03/02/18 21:04 Dose: 6.25 mg Clopidogrel Bisulfate (Plavix) 75 mg PO QDAY [facility] Last Admin: 03/02/18 11:45 Dose: 75 mg Enoxaparin Sodium (Lovenox) 40 mg SUB-Q QDAY [facility] Last Admin: 03/02/18 11:44 Dose: 40 mg Glimepiride (Amaryl) 2 mg PO QAMDIAB [facility] Last Admin: 03/02/18 11:57 Dose: 2 mg Ceftriaxone Sodium (Rocephin/Ns 2 Gm/100 Ml) 2 gm in 100 mls @ 200 mls/hr IV Q24HR [facility]; Protocol Last Admin: 03/02/18 11:44 Dose: 200 mls/hr Sodium Chloride (Nacl 0.9% 1000 Ml) 1,000 mls @ 75 mls/hr IV DIRECT [facility] Last Admin: 03/02/18 12:00 Dose: 75 mls/hr Ibuprofen (Motrin) 600 mg PO Q6H PRN PRN Reason: Pain, Mild (1-3) Losartan Potassium (Cozaar) 100 mg PO QDAY [facility] Last Admin: 03/02/18 12:00 Dose: Not Given Morphine Sulfate (Morphine) 2 mg IV Q4H PRN PRN Reason: Pain, Moderate (4-6) Last Admin: 03/02/18 17:53 Dose: 2 mg Ondansetron HCl (Zofran) 4 mg IV Q8H PRN PRN Reason: Nausea And Vomiting Oxycodone/Acetaminophen (Percocet 5/325) 2 tab PO Q6H PRN PRN Reason: Pain, Moderate (4-6) Last Admin: 03/02/18 20:58 Dose: 2 tab Pravastatin Sodium (Pravachol) 80 mg PO QHS [facility] Last Admin: 03/02/18 21:04 Dose: 80 mg Sodium Chloride (Sodium Chloride Flush Syringe 10 Ml) 10 ml IV BID [facility] Last Admin: 03/02/18 21:04 Dose: 10 ml Sodium Chloride (Sodium Chloride Flush Syringe 10 Ml) 10 ml IV PRN PRN PRN Reason: LINE FLUSH Review of Systems Constitutional: chronic pain Breasts: deferred Musculoskeletal: neck pain, low back pain Exam - Constitutional Vitals: Temp Pulse Resp BP Pulse Ox 99.1 F 83 20 138/76 100 03/02/18 19:59 03/02/18 21:04 03/02/18 19:59 03/02/18 21:04 08/02/18 19:59 General appearance: Present: mild distress - EENT Eyes: Present: PERRL ENT: hearing intact, clear oral mucosa - Neck Neck: Present: supple, normal ROM, other (tender lymphnodes) - Respiratory Respiratory effort: normal Respiratory: bilateral: CTA - Cardiovascular Heart Sounds: Present: S1 & S2. Absent: rub, click - Extremities Extremities: pulses symmetrical, No edema Peripheral Pulses: within normal limits - Abdominal General gastrointestinal: Present: soft, non-tender, non-distended, normal bowel sounds Female genitourinary: Present: deferred - Rectal Rectal Exam: deferred - Integumentary Integumentary: Present: clear, warm, dry - Musculoskeletal Musculoskeletal: gait normal, strength equal bilaterally - Psychiatric Psychiatric: appropriate mood/affect, intact judgment & insight - Neurologic Neurologic: CNII-XII intact, moves all extremities Results - Labs CBC & Chem 7: 03/02/18 04:04 03/02/18 11:16 Labs: Abnormal lab results 03/02/18 03/02/18 03/02/18 Range/Units 00:31 04:04 04:04 RBC 3.01 L (3.65-5.03) M/mm3 Hgb 9.5 L (10.1-14.3) gm/dl Hct 28.5 L (30.3-42.9) % Seg Neuts % (Manual) 18.0 L (40.0-70.0) % Lymphocytes % (Manual) 68.0 H (13.4-35.0) % Lymphocytes # (Manual) 6.9 H (1.2-5.4) K/mm3 Carbon Dioxide 19 L (22-30) mmol/L BUN 25 H (7-17) mg/dL Creatinine 1.6 H (0.7-1.2) mg/dL Glucose 113 H (65-100) mg/dL Hemoglobin A1c 6.4 H (4-6) % Albumin 3.8 L (3.9-5) g/dL 03/02/18 Range/Units 11:16 RBC (3.65-5.03) M/mm3 Hgb (10.1-14.3) gm/dl Hct (30.3-42.9) % Seg Neuts % (Manual) (40.0-70.0) % Lymphocytes % (Manual) (13.4-35.0) % Lymphocytes # (Manual) (1.2-5.4) K/mm3 Carbon Dioxide 18 L (22-30) mmol/L BUN 24 H (7-17) mg/dL Creatinine 1.4 H (0.7-1.2) mg/dL Glucose 152 H (65-100) mg/dL Hemoglobin A1c (4-6) % Albumin (3.9-5) g/dL Assessment and Plan - Patient Problems (1) Back pain Current Visit: Yes Status: Acute Qualifiers: Back pain location: thoracic back pain Chronicity: unspecified Back pain laterality: unspecified Qualified Code(s): M54.6 - Pain in thoracic spine Plan to address problem: Pain control. (2) QUIRINO (acute kidney injury) Current Visit: Yes Status: Acute Plan to address problem: corrective measures. (3) Neck pain Current Visit: Yes Status: Acute Plan to address problem: See notes.
[2018-03-02] MEDS ORDERED: NON-FORMULARY (Simvastatin 40 MG) PO SCH (22:00)
[2018-03-03] MEDS: PERCOCET 5/325 PO PRN ×3 (05:06→22:04)
--- NOTE | 2018-03-03 07:39 | Progress Note ---
Assessment and Plan Assessment and plan: 67-year-old female was presented to the emergency department complaining of fever and neck pain for the last 2 days. Patient denied nausea, vomiting, headache. Neck pain SIRS evidenced by fever and tachycardia Bacteremia withe GBSC; infectious disease doctor consulted, ID recommended 2 weeks of IV antibiotic, so patient needs outpatient IV antibiotic arrangement Chronic kidney disease Lymphoma; hematology/oncology consulted, ordered some tests and recommend outpatient follow-up in his office, lymph node biopsy was taken - pain control - Patient is on IV Rocephin - Blood cultures positive for group B streptococcus - CSF is negative for meningitis DVT prophylaxis - On heparin Disposition - Continue inpatient care History Interval history: Patient was seen and evaluated this morning, patient is still complaining neck pain. No fever, nausea, vomiting, headache. Hospitalist Physical - Physical exam Narrative exam: Not in cardiopulmonary distress. The patient appeared well nourished and normally developed. Neck tenderness Vital signs as documented. Head exam is unremarkable. No scleral icterus . Neck is without jugular venous distension, thyromegaly, or carotid bruits. Lungs are clear to auscultation. Cardiac exam reveals regular rate and Rhythm. First and second heart sounds normal. No murmurs, rubs or gallops. Abdominal exam reveals normal bowel sounds, no masses, no organomegaly and no aortic enlargement. Extremities are nonedematous and both femoral and pedal pulses are normal. Lymph nodes: axillary LAP ELECT[employer]ICIAN SHOP: Alert and oriented 3. Negative meningeal signs - Constitutional Vitals: Temp Pulse Resp BP Pulse Ox 98.6 F 73 18 140/73 96 03/03/18 03:05 03/03/18 03:05 03/03/18 03:05 03/03/18 03:05 03/03/18 03:05 General appearance: Present: mild distress Results - Labs CBC & Chem 7: 03/02/18 04:04 03/03/18 08:34 Labs: Laboratory Last Values WBC 10.2 K/mm3 (4.5-11.0) 03/02/18 04:04 RBC 3.01 M/mm3 (3.65-5.03) L 03/02/18 04:04 Hgb 9.5 gm/dl (10.1-14.3) L 03/02/18 04:04 Hct 28.5 % (30.3-42.9) L 03/02/18 04:04 MCV 95 fl (79-97) 03/02/18 04:04 MCH 32 pg (28-32) 03/02/18 04:04 MCHC 33 % (30-34) 03/02/18 04:04 RDW 15.0 % (13.2-15.2) 03/02/18 04:04 Plt Count 182 K/mm3 (140-440) 03/02/18 04:04 Lymph % (Auto) [employer] 03/02/18 04:04 Lymph # [employer] 03/02/18 04:04 Add Manual Diff Complete 03/01/18 12:51 Total Counted 100 03/02/18 04:04 Seg Neutrophils % [employer] 03/02/18 04:04 Seg Neuts % (Manual) 18.0 % (40.0-70.0) L 03/02/18 04:04 Band Neutrophils % 1.0 % 03/02/18 04:04 Lymphocytes % (Manual) 68.0 % (13.4-35.0) H 03/02/18 04:04 Reactive Lymphs % (Man) 11.0 % 03/02/18 04:04 Monocytes % (Manual) 2.0 % (0.0-7.3) 03/02/18 04:04 Eosinophils % (Manual) 0 % (0.0-4.3) 03/02/18 04:04 Basophils % (Manual) 0 % (0.0-1.8) 03/02/18 04:04 Metamyelocytes % 0 % 03/02/18 04:04 Myelocytes % 0 % 03/02/18 04:04 Promyelocytes % 0 % 03/02/18 04:04 Blast Cells % 0 % 03/02/18 04:04 Nucleated RBC % Not Reportable 03/02/18 04:04 Seg Neutrophils # Man 1.8 K/mm3 (1.8-7.7) 03/02/18 04:04 Band Neutrophils # 0.1 K/mm3 03/02/18 04:04 Lymphocytes # (Manual) 6.9 K/mm3 (1.2-5.4) H 03/02/18 04:04 Abs React Lymphs (Man) 1.1 K/mm3 03/02/18 04:04 Monocytes # (Manual) 0.2 K/mm3 (0.0-0.8) 03/02/18 04:04 Eosinophils # (Manual) 0.0 K/mm3 (0.0-0.4) 03/02/18 04:04 Basophils # (Manual) 0.0 K/mm3 (0.0-0.1) 03/02/18 04:04 Metamyelocytes # 0.0 K/mm3 03/02/18 04:04 Myelocytes # 0.0 K/mm3 03/02/18 04:04 Promyelocytes # 0.0 K/mm3 03/02/18 04:04 Blast Cells # 0.0 K/mm3 03/02/18 04:04 Pathologist Review 03/02/18 04:04 WBC Morphology Not Reportable 03/02/18 04:04 Hypersegmented Neuts Not Reportable 03/02/18 04:04 Hyposegmented Neuts Not Reportable 03/02/18 04:04 Hypogranular Neuts Not Reportable 03/02/18 04:04 Smudge Cells Not Reportable 03/02/18 04:04 Toxic Granulation Not Reportable 03/02/18 04:04 Toxic Vacuolation Not Reportable 03/02/18 04:04 Dohle Bodies Not Reportable 03/02/18 04:04 Pelger-Huet Anomaly Not Reportable 03/02/18 04:04 Mina Rods Not Reportable 03/02/18 04:04 Platelet Estimate Consistent w auto 03/02/18 04:04 Clumped Platelets Not Reportable 03/02/18 04:04 Plt Clumps, EDTA Not Reportable 03/02/18 04:04 Large Platelets Not Reportable 03/02/18 04:04 Giant Platelets Not Reportable 03/02/18 04:04 Platelet Satelliting Not Reportable 03/02/18 04:04 Plt Morphology Comment Not Reportable 03/02/18 04:04 RBC Morphology Not Reportable 03/02/18 04:04 Dimorphic RBCs Not Reportable 03/02/18 04:04 Polychromasia Not Reportable 03/02/18 04:04 Hypochromasia Not Reportable 03/02/18 04:04 Poikilocytosis 1+ 03/02/18 04:04 Anisocytosis 1+ 03/02/18 04:04 Microcytosis Not Reportable 03/02/18 04:04 Macrocytosis Not Reportable 03/02/18 04:04 Spherocytes Not Reportable 03/02/18 04:04 Pappenheimer Bodies Not Reportable 03/02/18 04:04 Sickle Cells Not Reportable 03/02/18 04:04 Target Cells Not Reportable 03/02/18 04:04 Tear Drop Cells Few 03/02/18 04:04 Ovalocytes Not Reportable 03/02/18 04:04 Helmet Cells Not Reportable 03/02/18 04:04 Pati[place] Bodies Not Reportable 03/02/18 04:04 [place] Rings Not Reportable 03/02/18 04:04 [place] Cells Not Reportable 03/02/18 04:04 Bite Cells Not Reportable 03/02/18 04:04 Crenated Cell Not Reportable 03/02/18 04:04 Elliptocytes Few 03/02/18 04:04 Acanthocytes (Spur) Few 03/02/18 04:04 Rouleaux Not Reportable 03/02/18 04:04 Hemoglobin C Crystals Not Reportable 03/02/18 04:04 Schistocytes Not Reportable 03/02/18 04:04 Malaria parasites Not Reportable 03/02/18 04:04 ESR 78 mm/Hr (0-20) 03/03/18 05:20 [place] Bodies Not Reportable 03/02/18 04:04 Hem Pathologist Commnt Sent to pathology 03/02/18 04:04 Sodium 139 mmol/L (137-145) 03/02/18 11:16 Potassium 4.1 mmol/L (3.6-5.0) 03/02/18 11:16 Chloride 104.3 mmol/L (98-107) 03/02/18 11:16 Carbon Dioxide 18 mmol/L (22-30) L 03/02/18 11:16 Anion Gap 21 mmol/L 03/02/18 11:16 BUN 24 mg/dL (7-17) H 03/02/18 11:16 Creatinine 1.4 mg/dL (0.7-1.2) H 03/02/18 11:16 Estimated GFR 45 ml/min 03/02/18 11:16 BUN/Creatinine Ratio 17 % 03/02/18 11:16 Glucose 152 mg/dL (65-100) H 03/02/18 11:16 POC Glucose 119 (70-105) H 03/03/18 07:18 Hemoglobin A1c 6.4 % (4-6) H 03/02/18 00:31 Lactic Acid 0.50 mmol/L (0.7-2.0) L 03/01/18 12:55 Calcium 8.7 mg/dL (8.4-10.2) 03/02/18 11:16 Total Bilirubin 0.60 mg/dL (0.1-1.2) 03/02/18 04:04 AST 11 units/L (5-40) 03/02/18 04:04 ALT 7 units/L (7-56) 03/02/18 04:04 Alkaline Phosphatase 73 units/L (35-129) 03/02/18 04:04 Lactate Dehydrogenase 141 units/L (91-180) 03/03/18 05:20 Total Creatine Kinase 38 units/L (30-135) 03/01/18 12:55 Total Protein 6.3 g/dL (6.3-8.2) 03/02/18 04:04 Albumin 3.8 g/dL (3.9-5) L 03/02/18 04:04 Albumin/Globulin Ratio 1.5 % 03/02/18 04:04 Urine Color Yellow (Yellow) 03/01/18 Unknown Urine Turbidity Clear (Clear) 03/01/18 Unknown Urine pH 5.0 (5.0-7.0) 03/01/18 Unknown Ur Specific [place] 1.016 (1.003-1.030) 03/01/18 Unknown Urine Protein 30 mg/dl mg/dL (Negative) 03/01/18 Unknown Urine Glucose (UA) Neg mg/dL (Negative) 03/01/18 Unknown Urine Ketones Neg mg/dL (Negative) 03/01/18 Unknown Urine Blood Neg (Negative) 03/01/18 Unknown Urine Nitrite Neg (Negative) 03/01/18 Unknown Urine Bilirubin Neg (Negative) 03/01/18 Unknown Urine Urobilinogen < 2.0 mg/dL (<2.0) 03/01/18 Unknown Ur Leukocyte Esterase Neg (Negative) 03/01/18 Unknown Urine WBC (Auto) 2.0 /HPF (0.0-6.0) 03/01/18 Unknown Urine RBC (Auto) 6.0 /HPF (0.0-6.0) 03/01/18 Unknown U Epithel Cells (Auto) 2.0 /HPF (0-13.0) 03/01/18 Unknown Urine Bacteria (Auto) 1+ /HPF (Negative) 03/01/18 Unknown Urine Mucus Few /HPF 03/01/18 Unknown CSF Appearance Clear 03/01/18 17:45 CSF Color Colorless 03/01/18 17:45 CSF WBC 1 /mm3 (1-10) 03/01/18 17:45 CSF RBC 0 /mm3 (0-0) 03/01/18 17:45 CSF Seg Neutrophils 0 % (0-6) 03/01/18 17:45 CSF Lymphocytes % 0 % (40-80) 03/01/18 17:45 CSF Reactive Lymphs 0 % 03/01/18 17:45 CSF Monocytes % 0 % (15-45) 03/01/18 17:45 CSF Eosinophils % 0 % 03/01/18 17:45 CSF Basophils 0 % 03/01/18 17:45 CSF Comment No cells seen 03/01/18 17:45 CSF Pathologist Review C 03/01/18 17:45 CSF Glucose 91 mg/dL 03/01/18 17:45 CSF Total Protein 33 mg/dL 03/01/18 17:45 - Imaging and Cardiology CT scan - chest: report reviewed (lymphoma)
[2018-03-03] MEDS: AMARYL PO SCH (08:30)
--- NOTE | 2018-03-03 08:45 | Cat Scan Report ---
CT ABDOMEN PELVIS WITHOUT CONTRAST: HISTORY: Lymphadenopathy. COMPARISON: No previous exams of the abdomen. Correlation is made with the CT chest without contrast performed 03/02/18. TECHNIQUE: Helical CT in 1.25mm intervals without IV contrast. Sagittal and coronal reconstructions. FINDINGS: Liver: Normal. Biliary system: Sludge is suspected in the dependent portion of the gallbladder. No biliary dilatation or inflammation. Pancreas: The pancreas is difficult to identify due to adenopathy but appears grossly normal. Spleen: Normal. The spleen measures 4.5 x 6.1 cm in axial plane. No splenic lesion is identified on noncontrast CT. Kidneys/ureters/bladder: The kidneys are normal size and contour. The left kidney is displaced laterally due to massive retroperitoneal adenopathy. There may be mild pyelocaliectasis within the left kidney due to mass effect. No obvious obstruction on the right side. The course of the ureters is obscured by adenopathy. The bladder is unremarkable. Adrenal glands: Normal. Aorta: Moderate scattered calcifications. No aneurysm. Intestines: Grossly normal given no oral contrast was administered. Appendix: Normal. Pelvic viscera: Unremarkable. Ascites: Trace ascites in the cul-de-sac. Adenopathy: There is massive adenopathy throughout the retroperitoneum, garry hepatis, celiac axis, mesentery and bilateral iliac chains. Too many to count lymph nodes are present. For instance, a left retroperitoneal lymph node measures 8.8 x 6.1 cm. A right external iliac lymph node measures 7.6 x 3.9 cm. Lymphadenopathy is nearly coalescent throughout the retroperitoneum and mesentery. Musculoskeletal: No suspicious bony lesions are identified. Moderate lumbar spondylosis. IMPRESSION: Massive lymphadenopathy is present throughout the retroperitoneum, base of the mesentery, garry hepatis, celiac axis and bilateral iliac chains. There is no obvious solid organ lesion however no IV or oral contrast was administered. There is suggestion of minimal pyelocaliectasis in the left kidney which is probably due to mild extrinsic compression of the left ureter due to adenopathy. Small sludge in the gallbladder.
--- NOTE | 2018-03-03 09:01 | Event Note ---
Date: 03/03/[address] scans of the abdomen and pelvis and CT chest. Extensive lymphadenopathy. Axillary lymph nodes are the most superficial and quite large. Diagnostic radiology usually performs ultrasound guided lymph node biopsies. Placed order for US BX LYMPH NODE to expedite care with patient. Please coordinate care with diagnostic radiology.
[2018-03-03] MEDS: ROCEPHIN/NS 2 GM/100 ML 2 GM/100 ML BAG IV SCH (09:27)
[2018-03-03] MEDS: LOVENOX SUB-Q SCH (09:33)
[2018-03-03] MEDS: COREG PO SCH ×2 (09:33→22:05)
[2018-03-03] MEDS: COZAAR PO SCH (09:33)
[2018-03-03] MEDS: PLAVIX PO SCH (09:34)
[2018-03-03] MEDS: NORVASC PO SCH (09:34)
[2018-03-03] MEDS: SODIUM CHLORIDE FLUSH SYRINGE 10 ML IV SCH ×2 (09:34→22:08)
--- NOTE | 2018-03-03 09:45 | Consultation ---
History of Present Illness - Reason for Consult Consult date: 03/03/18 fever, neck pain Requesting physician: ANIYAH BENAVIDES - History of Present Illness 67 y/o female with history of hypertension, diabetes, hyperlipidemia; admitted on 03/01/18 due to severe neck pain for 24h. She drove herself to the ED. Denies headache, photophobia, sick contact, recent fever. Denies cough, SOB, N/V/D, abdominal pain. She took OTC pain meds w/o improvement. In the ED, temp 101.5, HR 84, R 20, BP 166/138. WBC 9. Hg 10.3. Plat 234. Creat 1.6. CXR showed mild cardiomegly. CT head enlarged pituitary gland. Underwent LP CSF demonstrated 1 WBC, normal glucose and protein. CT chest showed extensive bilateral intrathoracic and axillary LNs. CT abd showed massive retroperitoneal, mesenteric, portal, celiac and carey iliac LNs. Microbiology: Blood cultures: 03/01 Beta hem Strep group B 2 of 4 bottles Urine cultures: Current Antimicrobials: ceftriaxone Previous Antimicrobials: Past History Past Medical History: diabetes, hypertension, stroke Medications and Allergies Allergies Allergy/AdvReac Type Severity Reaction Status Date / Time No Known Allergies Allergy Verified 03/01/18 23:01 Home Medications Medication Instructions Recorded Confirmed Last Taken Type Amlodipine Besylate [Norvasc] 10 mg PO DAILY 03/02/18 03/02/18 02/28/18 History Carvedilol [Coreg] 6.25 mg PO BID 03/02/18 03/02/18 02/28/18 History Clopidogrel [Plavix] 75 mg PO QDAY 03/02/18 03/02/18 02/28/18 History Glimepiride [Amaryl] 2 mg PO QAM 03/02/18 03/02/18 02/28/18 History Losartan Potassium 100 mg PO DAILY 03/02/18 03/02/18 02/28/18 History Simvastatin [Zocor TAB] 40 mg PO QHS 03/02/18 03/02/18 02/28/18 History Active Meds: Active Medications Acetaminophen (Tylenol) 650 mg PO Q4H PRN PRN Reason: Pain MILD(1-3)/Fever >100.5/SALMON Last Admin: 03/01/18 23:10 Dose: 650 mg Amlodipine Besylate (Norvasc) 10 mg PO DAILY [facility] Last Admin: 03/03/18 09:34 Dose: Not Given Carvedilol (Coreg) 6.25 mg PO BID [facility] Last Admin: 03/03/18 09:33 Dose: Not Given Clopidogrel Bisulfate (Plavix) 75 mg PO QDAY [facility] Last Admin: 03/03/18 09:34 Dose: Not Given Enoxaparin Sodium (Lovenox) 40 mg SUB-Q QDAY [facility] Last Admin: 03/03/18 09:33 Dose: Not Given Glimepiride (Amaryl) 2 mg PO QAMDIAB [facility] Last Admin: 03/03/18 08:30 Dose: Not Given Ceftriaxone Sodium (Rocephin/Ns 2 Gm/100 Ml) 2 gm in 100 mls @ 200 mls/hr IV Q24HR [facility]; Protocol Last Admin: 03/03/18 09:27 Dose: 200 mls/hr Sodium Chloride (Nacl 0.9% 1000 Ml) 1,000 mls @ 75 mls/hr IV DIRECT [facility] Last Admin: 03/02/18 12:00 Dose: 75 mls/hr Ibuprofen (Motrin) 600 mg PO Q6H PRN PRN Reason: Pain, Mild (1-3) Losartan Potassium (Cozaar) 100 mg PO QDAY [facility] Last Admin: 03/03/18 09:33 Dose: Not Given Morphine Sulfate (Morphine) 2 mg IV Q4H PRN PRN Reason: Pain, Moderate (4-6) Last Admin: 03/02/18 17:53 Dose: 2 mg Ondansetron HCl (Zofran) 4 mg IV Q8H PRN PRN Reason: Nausea And Vomiting Oxycodone/Acetaminophen (Percocet 5/325) 2 tab PO Q6H PRN PRN Reason: Pain, Moderate (4-6) Last Admin: 03/03/18 05:06 Dose: 2 tab Pravastatin Sodium (Pravachol) 80 mg PO QHS [facility] Last Admin: 03/02/18 21:04 Dose: 80 mg Sodium Chloride (Sodium Chloride Flush Syringe 10 Ml) 10 ml IV BID [facility] Last Admin: 03/03/18 09:34 Dose: 10 ml Sodium Chloride (Sodium Chloride Flush Syringe 10 Ml) 10 ml IV PRN PRN PRN Reason: LINE FLUSH Review of Systems All systems: negative (as per HPI rest 10 points ROS neg) Physical Examination - Physical Exam Narrative exam: General appearance: Alert in NAD, conversant Eyes: anicteric sclerae, moist conjunctivae; no lid-lag; PERRLA HENT: Atraumatic; oropharynx clear with moist mucous membranes and no mucosal ulcerations/no oral thrush; normal hard and soft palate. Normal external ears. Neck: Trachea midline +cervical lymphadenopathy Lungs: CTA, with normal respiratory effort and no intercostal retractions CV: RRR, no murmurs Abdomen: Soft, non-tender; no masses or hepatosplenomegaly Extremities: No peripheral edema or extremity lymphadenopathy Skin: Normal temperature, turgor and texture; no rash, ulcers or subcutaneous nodules Psych: Appropriate affect, alert and oriented to person, place and time. Neuro: alert and oriented x 3. Moving all extermities Lines: - Constitutional Vitals: Vital Signs Temp Pulse Resp BP Pulse Ox 97.9 F 66 18 129/66 96 03/03/18 07:47 03/03/18 09:33 03/03/18 07:47 03/03/18 09:33 03/03/18 03:05 Temperature -Last 24 Hours Temperature 97.9 F Temperature 98.6 F Temperature 99.1 F Temperature 98.2 F Results - Labs CBC & Chem 7: 03/02/18 04:04 03/03/18 08:34 Labs: Abnormal lab results 03/02/18 03/02/18 03/03/18 Range/Units 11:16 22:29 07:18 Sodium (137-145) mmol/L Carbon Dioxide 18 L (22-30) mmol/L BUN 24 H (7-17) mg/dL Creatinine 1.4 H (0.7-1.2) mg/dL Glucose 152 H (65-100) mg/dL POC Glucose 127 H 119 H (70-105) 03/03/18 Range/Units 08:34 Sodium 136 L (137-145) mmol/L Carbon Dioxide 21 L (22-30) mmol/L BUN 28 H (7-17) mg/dL Creatinine 1.6 H (0.7-1.2) mg/dL Glucose 131 H (65-100) mg/dL POC Glucose (70-105) Assessment and Plan Assessment: 1) Fever: Present on admission. Etiology most likely Strep bacteremia +/- malignancy 2) Strep group B bacteremia: likely real, unclear source ? LNs. UA neg 3) Massive generalized lymphadenompathy: ? lymphoma ? malignancy -CT chest showed extensive bilateral intrathoracic and axillary LNs. -CT abd showed massive retroperitoneal, mesenteric, portal, celiac and carey iliac LNs. -CT cervical carey cervical LNs 4) Severe neck pain: from LNs? CT head enlarged pituitary gland. Underwent LP CSF demonstrated 1 WBC, normal glucose and protein. CT cervical bilateral extensive cervical LNs 5) Hypertension 6) Diabetes Plan: -repeat blood cultures -stop ceftriaxone -start cefazolin -agree with LN biopsy and Hem/onc consult -TTE -will need IV abx for at least [address] Galan will be rounding until 03/09 Thank you for your consultation, will follow up with you. Elma Toth MD Infectious Diseases Specialist [facility] ([facility] M [phone] O [phone]
[2018-03-03] MEDS: MORPHINE IV PRN (11:39)
[2018-03-03] MEDS: ceFAZolin 2 GM in NACL 0.9% 100 ML IV SCH ×2 (15:23→22:08)
--- NOTE | 2018-03-03 15:33 | Procedure Note ---
Date of procedure: 03/03/18 Pre-op diagnosis: lymphadenopathy Post-op diagnosis: same Procedure: US guided biopsy of left axillary adenopathy Findings: bulky adenopathy Anesthesia: local Surgeon: MUSHTAQ DIAZ Estimated blood loss: none Pathology: list (18G core x 2) Specimen disposition: to lab Condition: stable Disposition: floor
--- NOTE | 2018-03-03 17:09 | Progress Note ---
Assessment and Plan - Patient Problems (1) Back pain Current Visit: Yes Status: Acute Qualifiers: Back pain location: thoracic back pain Chronicity: unspecified Back pain laterality: unspecified Qualified Code(s): M54.6 - Pain in thoracic spine Plan to address problem: Pain control. (2) QUIRINO (acute kidney injury) Current Visit: Yes Status: Acute Plan to address problem: corrective measures. (3) Neck pain Current Visit: Yes Status: Acute Plan to address problem: See notes. Subjective Date of service: 03/03/18 Interval history: Patient seen, resting in bed, records reviewed, s/p LN bx , awaiting path report. Continue with cerrent management until path report out. Ct of abd/ pelvic reviewed, with multiple Ln, probably related to the same LN in the axilla /chest/cervical.Once her renal numbers improve, will benefit from contrast CT. Objective - Constitutional Vitals: Vital Signs - 12hr 03/03/18 03/03/18 03/03/18 07:47 09:33 10:00 Temperature 97.9 F Pulse Rate 66 Pulse Rate [ 66 Right Radial] Respiratory 18 16 Rate Blood Pressure 131/77 129/66 Blood Pressure [Right] O2 Sat by Pulse 96 Oximetry 03/03/18 13:57 Temperature 97.9 F Pulse Rate 73 Pulse Rate [ Right Radial] Respiratory 22 Rate Blood Pressure Blood Pressure 133/70 [Right] O2 Sat by Pulse 98 Oximetry General appearance: Present: mild distress - EENT Eyes: PERRL, EOM intact ENT: hearing intact, clear oral mucosa Ears: bilateral: normal - Neck Neck: supple, normal ROM - Respiratory Respiratory effort: normal Respiratory: bilateral: CTA - Breasts Breasts: deferred - Cardiovascular Rhythm: regular Heart Sounds: Present: S1 & S2. Absent: gallop, rub Extremities: pulses intact, No edema, normal color, Full ROM - Gastrointestinal General gastrointestinal: Present: soft, non-tender, non-distended, normal bowel sounds Rectal Exam: deferred - Genitourinary Female genitourinary: deferred - Integumentary Integumentary: clear, warm, dry - Musculoskeletal Musculoskeletal: 1, strength equal bilaterally - Neurologic Neurologic: moves all extremities - Psychiatric Psychiatric: appropriate mood/affect, intact judgment & insight - Labs CBC & Chem 7: 03/02/18 04:04 03/03/18 08:34 Labs: Abnormal lab results 03/02/18 03/03/18 03/03/18 Range/Units 22:29 07:18 08:34 Sodium 136 L (137-145) mmol/L Carbon Dioxide 21 L (22-30) mmol/L BUN 28 H (7-17) mg/dL Creatinine 1.6 H (0.7-1.2) mg/dL Glucose 131 H (65-100) mg/dL POC Glucose 127 H 119 H (70-105) 03/03/18 Range/Units 11:46 Sodium (137-145) mmol/L Carbon Dioxide (22-30) mmol/L BUN (7-17) mg/dL Creatinine (0.7-1.2) mg/dL Glucose (65-100) mg/dL POC Glucose 113 H (70-105)
[2018-03-03] MEDS: MIRALAX 3350 PO PRN (18:41)
[2018-03-03] MEDS: PRAVACHOL PO SCH (22:05)
[2018-03-04] MEDS: NACL 0.9% 1000 ML 1,000 ML IV SCH ×2 (01:52→17:57)
[2018-03-04] MEDS: MORPHINE IV PRN ×3 (03:04→17:56)
[2018-03-04] MEDS: ceFAZolin 2 GM in NACL 0.9% 100 ML IV SCH ×3 (05:56→21:06)
[2018-03-04 07:11] LABS: Calcium 8.8 mg/dL (8.4-10.2)
--- NOTE | 2018-03-04 07:30 | Progress Note ---
Assessment and Plan Assessment and plan: 67-year-old female was presented to the emergency department complaining of fever and neck pain for the last 2 days. Patient denied nausea, vomiting, headache. Neck pain SIRS evidenced by fever and tachycardia; resolved Bacteremia withe GBSC; infectious disease doctor consulted, ID recommended 2 weeks of IV antibiotic, so patient needs outpatient IV antibiotic arrangement Echo was done and showed thickened aortic valves; cardiology consulted for KRUPA Chronic kidney disease: Improving Lymphoma; hematology/oncology consulted, ordered some tests and recommend outpatient follow-up in his office, lymph node biopsy was taken - pain control - Patient was on IV Rocephin, now on cefazolin - Blood cultures positive for group B streptococcus - CSF is negative for meningitis DVT prophylaxis - On heparin Disposition - Continue inpatient care; will have KRUPA on Tuesday, will be discharged with IV cefazolin as an outpatient. History Interval history: Patient was seen and evaluated this morning, patient's neck pain is getting better. No fever, nausea, vomiting, headache. Hospitalist Physical - Physical exam Narrative exam: Not in cardiopulmonary distress. The patient appeared well nourished and normally developed. Neck tenderness Vital signs as documented. Head exam is unremarkable. No scleral icterus . Neck is without jugular venous distension, thyromegaly, or carotid bruits. Lungs are clear to auscultation. Cardiac exam reveals regular rate and Rhythm. First and second heart sounds normal. No murmurs, rubs or gallops. Abdominal exam reveals normal bowel sounds, no masses, no organomegaly and no aortic enlargement. Extremities are nonedematous and both femoral and pedal pulses are normal. Lymph nodes: axillary LAP ZIGZAG STITCHER: Alert and oriented 3. Negative meningeal signs - Constitutional Vitals: Temp Pulse Resp BP Pulse Ox 98.0 F 79 20 162/69 98 03/03/18 19:38 03/03/18 22:05 03/04/18 03:34 03/03/18 22:05 03/03/18 22:00 General appearance: Present: mild distress Results - Labs CBC & Chem 7: 03/02/18 04:04 03/04/18 06:04 Labs: Laboratory Last Values WBC 10.2 K/mm3 (4.5-11.0) 03/02/18 04:04 RBC 3.01 M/mm3 (3.65-5.03) L 03/02/18 04:04 Hgb 9.5 gm/dl (10.1-14.3) L 03/02/18 04:04 Hct 28.5 % (30.3-42.9) L 03/02/18 04:04 MCV 95 fl (79-97) 03/02/18 04:04 MCH 32 pg (28-32) 03/02/18 04:04 MCHC 33 % (30-34) 03/02/18 04:04 RDW 15.0 % (13.2-15.2) 03/02/18 04:04 Plt Count 182 K/mm3 (140-440) 03/02/18 04:04 Lymph % (Auto) Cost Control Analyst 03/02/18 04:04 Lymph # Cost Control Analyst 03/02/18 04:04 Add Manual Diff Complete 03/01/18 12:51 Total Counted 100 03/02/18 04:04 Seg Neutrophils % Cost Control Analyst 03/02/18 04:04 Seg Neuts % (Manual) 18.0 % (40.0-70.0) L 03/02/18 04:04 Band Neutrophils % 1.0 % 03/02/18 04:04 Lymphocytes % (Manual) 68.0 % (13.4-35.0) H 03/02/18 04:04 Reactive Lymphs % (Man) 11.0 % 03/02/18 04:04 Monocytes % (Manual) 2.0 % (0.0-7.3) 03/02/18 04:04 Eosinophils % (Manual) 0 % (0.0-4.3) 03/02/18 04:04 Basophils % (Manual) 0 % (0.0-1.8) 03/02/18 04:04 Metamyelocytes % 0 % 03/02/18 04:04 Myelocytes % 0 % 03/02/18 04:04 Promyelocytes % 0 % 03/02/18 04:04 Blast Cells % 0 % 03/02/18 04:04 Nucleated RBC % Not Reportable 03/02/18 04:04 Seg Neutrophils # Man 1.8 K/mm3 (1.8-7.7) 03/02/18 04:04 Band Neutrophils # 0.1 K/mm3 03/02/18 04:04 Lymphocytes # (Manual) 6.9 K/mm3 (1.2-5.4) H 03/02/18 04:04 Abs React Lymphs (Man) 1.1 K/mm3 03/02/18 04:04 Monocytes # (Manual) 0.2 K/mm3 (0.0-0.8) 03/02/18 04:04 Eosinophils # (Manual) 0.0 K/mm3 (0.0-0.4) 03/02/18 04:04 Basophils # (Manual) 0.0 K/mm3 (0.0-0.1) 03/02/18 04:04 Metamyelocytes # 0.0 K/mm3 03/02/18 04:04 Myelocytes # 0.0 K/mm3 03/02/18 04:04 Promyelocytes # 0.0 K/mm3 03/02/18 04:04 Blast Cells # 0.0 K/mm3 03/02/18 04:04 Pathologist Review 03/02/18 04:04 WBC Morphology Not Reportable 03/02/18 04:04 Hypersegmented Neuts Not Reportable 03/02/18 04:04 Hyposegmented Neuts Not Reportable 03/02/18 04:04 Hypogranular Neuts Not Reportable 03/02/18 04:04 Smudge Cells Not Reportable 03/02/18 04:04 Toxic Granulation Not Reportable 03/02/18 04:04 Toxic Vacuolation Not Reportable 03/02/18 04:04 Dohle Bodies Not Reportable 03/02/18 04:04 Pelger-Huet Anomaly Not Reportable 03/02/18 04:04 Mina Rods Not Reportable 03/02/18 04:04 Platelet Estimate Consistent w auto 03/02/18 04:04 Clumped Platelets Not Reportable 03/02/18 04:04 Plt Clumps, EDTA Not Reportable 03/02/18 04:04 Large Platelets Not Reportable 03/02/18 04:04 Giant Platelets Not Reportable 03/02/18 04:04 Platelet Satelliting Not Reportable 03/02/18 04:04 Plt Morphology Comment Not Reportable 03/02/18 04:04 RBC Morphology Not Reportable 03/02/18 04:04 Dimorphic RBCs Not Reportable 03/02/18 04:04 Polychromasia Not Reportable 03/02/18 04:04 Hypochromasia Not Reportable 03/02/18 04:04 Poikilocytosis 1+ 03/02/18 04:04 Anisocytosis 1+ 03/02/18 04:04 Microcytosis Not Reportable 03/02/18 04:04 Macrocytosis Not Reportable 03/02/18 04:04 Spherocytes Not Reportable 03/02/18 04:04 Pappenheimer Bodies Not Reportable 03/02/18 04:04 Sickle Cells Not Reportable 03/02/18 04:04 Target Cells Not Reportable 03/02/18 04:04 Tear Drop Cells Few 03/02/18 04:04 Ovalocytes Not Reportable 03/02/18 04:04 Helmet Cells Not Reportable 03/02/18 04:04 [place] Bodies Not Reportable 03/02/18 04:04 [place] Rings Not Reportable 03/02/18 04:04 [place]aura Cells Not Reportable 03/02/18 04:04 Bite Cells Not Reportable 03/02/18 04:04 Crenated Cell Not Reportable 03/02/18 04:04 Elliptocytes Few 03/02/18 04:04 Acanthocytes (Spur) Few 03/02/18 04:04 Rouleaux Not Reportable 03/02/18 04:04 Hemoglobin C Crystals Not Reportable 03/02/18 04:04 Schistocytes Not Reportable 03/02/18 04:04 Malaria parasites Not Reportable 03/02/18 04:04 ESR 78 mm/Hr (0-20) 03/03/18 05:20 [place] Bodies Not Reportable 03/02/18 04:04 Hem Pathologist Commnt Sent to pathology 03/02/18 04:04 Sodium 140 mmol/L (137-145) 03/04/18 06:04 Potassium 4.6 mmol/L (3.6-5.0) 03/04/18 06:04 Chloride 104.8 mmol/L (98-107) 03/04/18 06:04 Carbon Dioxide 21 mmol/L (22-30) L 03/04/18 06:04 Anion Gap 19 mmol/L 03/04/18 06:04 BUN 24 mg/dL (7-17) H 03/04/18 06:04 Creatinine 1.3 mg/dL (0.7-1.2) H 03/04/18 06:04 Estimated GFR 49 ml/min 03/04/18 06:04 BUN/Creatinine Ratio 18 % 03/04/18 06:04 Glucose 105 mg/dL (65-100) H 03/04/18 06:04 POC Glucose 181 (70-105) H 03/03/18 21:51 Hemoglobin A1c 6.4 % (4-6) H 03/02/18 00:31 Lactic Acid 0.50 mmol/L (0.7-2.0) L 03/01/18 12:55 Calcium 8.8 mg/dL (8.4-10.2) 03/04/18 06:04 Total Bilirubin 0.60 mg/dL (0.1-1.2) 03/02/18 04:04 AST 11 units/L (5-40) 03/02/18 04:04 ALT 7 units/L (7-56) 03/02/18 04:04 Alkaline Phosphatase 73 units/L (35-129) 03/02/18 04:04 Lactate Dehydrogenase 141 units/L (91-180) 03/03/18 05:20 Total Creatine Kinase 38 units/L (30-135) 03/01/18 12:55 Total Protein 6.3 g/dL (6.3-8.2) 03/02/18 04:04 Albumin 3.8 g/dL (3.9-5) L 03/02/18 04:04 Albumin/Globulin Ratio 1.5 % 03/02/18 04:04 Urine Color Yellow (Yellow) 03/01/18 Unknown Urine Turbidity Clear (Clear) 03/01/18 Unknown Urine pH 5.0 (5.0-7.0) 03/01/18 Unknown Ur Specific [place] 1.016 (1.003-1.030) 03/01/18 Unknown Urine Protein 30 mg/dl mg/dL (Negative) 03/01/18 Unknown Urine Glucose (UA) Neg mg/dL (Negative) 03/01/18 Unknown Urine Ketones Neg mg/dL (Negative) 03/01/18 Unknown Urine Blood Neg (Negative) 03/01/18 Unknown Urine Nitrite Neg (Negative) 03/01/18 Unknown Urine Bilirubin Neg (Negative) 03/01/18 Unknown Urine Urobilinogen < 2.0 mg/dL (<2.0) 03/01/18 Unknown Ur Leukocyte Esterase Neg (Negative) 03/01/18 Unknown Urine WBC (Auto) 2.0 /HPF (0.0-6.0) 03/01/18 Unknown Urine RBC (Auto) 6.0 /HPF (0.0-6.0) 03/01/18 Unknown U Epithel Cells (Auto) 2.0 /HPF (0-13.0) 03/01/18 Unknown Urine Bacteria (Auto) 1+ /HPF (Negative) 03/01/18 Unknown Urine Mucus Few /HPF 03/01/18 Unknown CSF Appearance Clear 03/01/18 17:45 CSF Color Colorless 03/01/18 17:45 CSF WBC 1 /mm3 (1-10) 03/01/18 17:45 CSF RBC 0 /mm3 (0-0) 03/01/18 17:45 CSF Seg Neutrophils 0 % (0-6) 03/01/18 17:45 CSF Lymphocytes % 0 % (40-80) 03/01/18 17:45 CSF Reactive Lymphs 0 % 03/01/18 17:45 CSF Monocytes % 0 % (15-45) 03/01/18 17:45 CSF Eosinophils % 0 % 03/01/18 17:45 CSF Basophils 0 % 03/01/18 17:45 CSF Comment No cells seen 03/01/18 17:45 CSF Pathologist Review C 03/01/18 17:45 CSF Glucose 91 mg/dL 03/01/18 17:45 CSF Total Protein 33 mg/dL 03/01/18 17:45
[2018-03-04] MEDS: AMARYL PO SCH (08:45)
[2018-03-04] MEDS: PERCOCET 5/325 PO PRN ×2 (09:05→21:06)
--- NOTE | 2018-03-04 10:05 | Consultation ---
History of Present Illness Consult date: 03/04/18 Requesting physician: ANIYAH BENAVIDES Consult reason: other (endocarditis) History of present illness: Patient is a 67-year-old currently admitted to the hospital with fever and severe neck pain. She was noted to have group B strep bacteremia and is currently on antibiotics. An echocardiogram revealed possible aortic valve vegetation. In the interim patient was noted to have severe generalized lymphadenopathy more so bilateral cervical lymphadenopathy. The biopsy has been done and workup for malignancy is ongoing. Patient reports severe pain more so on her left cervical area. No prior history of cancer. No chest pain or shortness of breath. Past History Past Medical History: diabetes, hypertension, stroke Social history: no significant social history Medications and Allergies Allergies Allergy/AdvReac Type Severity Reaction Status Date / Time No Known Allergies Allergy Verified 03/01/18 23:01 Home Medications Medication Instructions Recorded Confirmed Last Taken Type Amlodipine Besylate [Norvasc] 10 mg PO DAILY 03/02/18 03/02/18 02/28/18 History Carvedilol [Coreg] 6.25 mg PO BID 03/02/18 03/02/18 02/28/18 History Clopidogrel [Plavix] 75 mg PO QDAY 03/02/18 03/02/18 02/28/18 History Glimepiride [Amaryl] 2 mg PO QAM 03/02/18 03/02/18 02/28/18 History Losartan Potassium 100 mg PO DAILY 03/02/18 03/02/18 02/28/18 History Simvastatin [Zocor TAB] 40 mg PO QHS 03/02/18 03/02/18 02/28/18 History Active Meds: Active Medications Acetaminophen (Tylenol) 650 mg PO Q4H PRN PRN Reason: Pain MILD(1-3)/Fever >100.5/SALMON Last Admin: 03/01/18 23:10 Dose: 650 mg Amlodipine Besylate (Norvasc) 10 mg PO DAILY COUNT INCLUDES THE [facility] Last Admin: 03/03/18 09:34 Dose: Not Given Carvedilol (Coreg) 6.25 mg PO BID COUNT INCLUDES THE [facility] Last Admin: 03/03/18 22:05 Dose: 6.25 mg Clopidogrel Bisulfate (Plavix) 75 mg PO QDAY COUNT INCLUDES THE [facility] Last Admin: 03/03/18 09:34 Dose: Not Given Enoxaparin Sodium (Lovenox) 40 mg SUB-Q QDAY COUNT INCLUDES THE [facility] Last Admin: 03/03/18 09:33 Dose: Not Given Glimepiride (Amaryl) 2 mg PO QAMDIAB COUNT INCLUDES THE [facility] Last Admin: 03/04/18 08:45 Dose: 2 mg Sodium Chloride (Nacl 0.9% 1000 Ml) 1,000 mls @ 75 mls/hr IV DIRECT COUNT INCLUDES THE [facility] Last Admin: 03/04/18 01:52 Dose: 75 mls/hr Cefazolin Sodium 2 gm/ Sodium (Chloride) 100 mls @ 200 mls/hr IV Q8HR COUNT INCLUDES THE [facility] Last Admin: 03/04/18 05:56 Dose: 200 mls/hr Ibuprofen (Motrin) 600 mg PO Q6H PRN PRN Reason: Pain, Mild (1-3) Losartan Potassium (Cozaar) 100 mg PO QDAY COUNT INCLUDES THE [facility] Last Admin: 03/03/18 09:33 Dose: Not Given Morphine Sulfate (Morphine) 2 mg IV Q4H PRN PRN Reason: Pain, Moderate (4-6) Last Admin: 03/04/18 03:04 Dose: 2 mg Ondansetron HCl (Zofran) 4 mg IV Q8H PRN PRN Reason: Nausea And Vomiting Oxycodone/Acetaminophen (Percocet 5/325) 2 tab PO Q6H PRN PRN Reason: Pain, Moderate (4-6) Last Admin: 03/04/18 09:05 Dose: 2 tab Polyethylene Glycol (Miralax 3350) 17 gm PO BID PRN PRN Reason: constipation Last Admin: 03/03/18 18:41 Dose: 17 gm Pravastatin Sodium (Pravachol) 80 mg PO QHS COUNT INCLUDES THE [facility] Last Admin: 03/03/18 22:05 Dose: 80 mg Sodium Chloride (Sodium Chloride Flush Syringe 10 Ml) 10 ml IV BID COUNT INCLUDES THE [facility] Last Admin: 03/03/18 22:08 Dose: 10 ml Sodium Chloride (Sodium Chloride Flush Syringe 10 Ml) 10 ml IV PRN PRN PRN Reason: LINE FLUSH Review of Systems All systems: negative (except as mentioned in the H&P) Physical Examination Vital Signs Temp Pulse Resp BP Pulse Ox 101.5 F H 84 20 166/138 96 03/01/18 12:33 03/01/18 12:33 03/01/18 12:33 03/01/18 12:33 03/01/18 12:33 Narrative exam: Physical examination Vitals reviewed GEN: No acute distress noted HEENT: Carotids 2+ NECK: Supple CVS: S1 and S2 heard no significant murmur or gallop noted LUNGS/CHEST: Normal auscultation ABD: Soft nontender Extremities: No edema noted normal color NEURO: Alert moves all all 4 extremities PSY: Stable Results 03/02/18 04:04 03/04/18 06:04 Comprehensive Metabolic Panel 03/04/18 Range/Units 06:04 Sodium 140 (137-145) mmol/L Potassium 4.6 (3.6-5.0) mmol/L Chloride 104.8 (98-107) mmol/L Carbon Dioxide 21 L (22-30) mmol/L BUN 24 H (7-17) mg/dL Creatinine 1.3 H (0.7-1.2) mg/dL Glucose 105 H (65-100) mg/dL Calcium 8.8 (8.4-10.2) mg/dL Assessment and Plan Assessment 1. Strep group B bacteremia 2. Bilateral cervical lymphadenopathy 3. Generalized lymphadenopathy 4. Abnormal transthoracic echocardiogram with questionable small vegetation in the aortic valve. 5. Hypertension Plan Continue IV antibiotics Patient with considerable bilateral neck pain. Reviewed echocardiogram at Dr. Sullivan. Currently patient is on IV antibiotics. No significant diastolic murmur of aortic regurgitation on examination. No significant aortic regurgitation on transthoracic echo. In view of the severe neck pain we'll hold off on the transesophageal echocardiogram. Continue workup for malignancy and IV antibiotics. KRUPA can be done in one to 2 weeks as an outpatient to determine the the length of IV antibiotic requirement. A follow-up ID feels that he needs to be done this hospitalization we will need anesthesia to completely sedated patient for KRUPA.
[2018-03-04] MEDS: COREG PO SCH ×2 (10:40→21:07)
[2018-03-04] MEDS: COZAAR PO SCH (10:40)
[2018-03-04] MEDS: NORVASC PO SCH (10:40)
[2018-03-04] MEDS: PLAVIX PO SCH (10:40)
[2018-03-04] MEDS: LOVENOX SUB-Q SCH (10:41)
[2018-03-04] MEDS: SODIUM CHLORIDE FLUSH SYRINGE 10 ML IV SCH ×2 (10:41→22:40)
--- NOTE | 2018-03-04 14:02 | Progress Note ---
Assessment and Plan Assessment: 1) Fever: Present on admission. Etiology most likely Strep bacteremia +/- malignancy 2) Strep group B bacteremia: likely real, ? Infective endocarditis. TTE with possible AV vegetation. UA neg 3) Massive generalized lymphadenompathy: ? lymphoma ? malignancy -CT chest showed extensive bilateral intrathoracic and axillary LNs. -CT abd showed massive retroperitoneal, mesenteric, portal, celiac and carey iliac LNs. -CT cervical carey cervical LNs -s/p L axillary LN biopsy 03/03 4) Severe neck pain: from LNs? CT head enlarged pituitary gland. Underwent LP CSF demonstrated 1 WBC, normal glucose and protein. CT cervical bilateral extensive cervical LNs 5) Hypertension 6) Diabetes Plan: -Will f/u blood cultures. -Continue cefazolin. -Will f/u LN biopsy. -Needs KRUPA. Marianna Galan MD ID attending [id number] [phone]. Subjective Date of service: 03/04/18 Interval history: Afebrile. Had Left axillary LN biopsy. Had 1 BM last night. Left neck pain is better. Microbiology: Blood cultures: 03/01 Beta hem Strep group B 2 of 4 bottles. 03/02 NGTD. CSF Cx 03/01 Neg. Current Antimicrobials: Cefazolin 03/03- Prior antimicrobials Ceftriaxone 03/01-03/03 Objective - Exam Narrative Exam: General appearance: Alert in NAD, conversant Eyes: anicteric sclerae, moist conjunctivae; no lid-lag; PERRLA HENT: Atraumatic; oropharynx clear with moist mucous membranes and no mucosal ulcerations/no oral thrush; normal hard and soft palate. Normal external ears. Neck: Trachea midline +cervical lymphadenopathy Lungs: CTA, with normal respiratory effort and no intercostal retractions CV: S1,S2. Abdomen: BS. Soft, mildly distended. Extremities: No peripheral edema. Skin: Normal temperature, turgor and texture; no rash, ulcers or subcutaneous nodules Psych: Appropriate affect, alert and oriented to person, place and time. Neuro: alert and oriented x 3. Moving all extremities Lines: PIV - Constitutional Vitals: Vital Signs Temp Pulse Resp BP Pulse Ox 97.8 F 102 H 16 154/77 98 03/04/18 08:07 03/04/18 10:40 03/04/18 13:37 03/04/18 10:40 03/04/18 08:07 Temperature -Last 24 Hours Temperature 97.8 F Temperature 98.3 F Temperature 98.0 F - Labs CBC & Chem 7: 03/02/18 04:04 03/04/18 06:04 Labs: Abnormal lab results 03/03/18 03/04/18 03/04/18 Range/Units 21:51 06:04 12:01 Carbon Dioxide 21 L (22-30) mmol/L BUN 24 H (7-17) mg/dL Creatinine 1.3 H (0.7-1.2) mg/dL Glucose 105 H (65-100) mg/dL POC Glucose 181 H 117 H (70-105)
[2018-03-04] MEDS: PRAVACHOL PO SCH (21:06)
[2018-03-05] MEDS: MORPHINE IV PRN ×3 (04:33→22:01)
[2018-03-05] MEDS: MIRALAX 3350 PO PRN ×2 (04:41→14:56)
[2018-03-05] MEDS: ceFAZolin 2 GM in NACL 0.9% 100 ML IV SCH ×2 (06:04→14:43)
--- NOTE | 2018-03-05 07:14 | Progress Note ---
Assessment and Plan Assessment and plan: 67-year-old female was presented to the emergency department complaining of fever and neck pain for the last 2 days. Patient denied nausea, vomiting, headache. Neck pain SIRS evidenced by fever and tachycardia; resolved Bacteremia withe GBSC; infectious disease doctor consulted, ID recommended 2 weeks of IV antibiotic, so patient needs outpatient IV antibiotic arrangement Echo was done and showed thickened aortic valves; cardiology consulted and recommended KRUPA, after 2 weeks or if ID needed on this admission Chronic kidney disease: Improving Lymphoma; hematology/oncology consulted, ordered some tests and recommend outpatient follow-up in his office, lymph node biopsy was taken - pain control - Patient was on IV Rocephin, now on cefazolin - Blood cultures positive for group B streptococcus - CSF is negative for meningitis DVT prophylaxis - On heparin Disposition - Continue inpatient care; will be discharged with IV cefazolin as an outpatient. History Interval history: Patient was seen and evaluated this morning, Patient still complains severe pain when she move her neck. No fever, nausea, vomiting, headache. Hospitalist Physical - Physical exam Narrative exam: Not in cardiopulmonary distress. The patient appeared well nourished and normally developed. Neck tenderness Vital signs as documented. Head exam is unremarkable. No scleral icterus . Neck is without jugular venous distension, thyromegaly, or carotid bruits. Lungs are clear to auscultation. Cardiac exam reveals regular rate and Rhythm. First and second heart sounds normal. No murmurs, rubs or gallops. Abdominal exam reveals normal bowel sounds, no masses, no organomegaly and no aortic enlargement. Extremities are nonedematous and both femoral and pedal pulses are normal. Lymph nodes: axillary [employer]: Alert and oriented 3. Negative meningeal signs - Constitutional Vitals: Temp Pulse Resp BP Pulse Ox 98.0 F 65 18 147/71 99 03/05/18 02:45 03/05/18 02:00 03/05/18 05:03 03/05/18 02:45 03/05/18 02:00 General appearance: Present: mild distress Results - Labs CBC & Chem 7: 03/02/18 04:04 03/04/18 06:04 Labs: Laboratory Last Values WBC 10.2 K/mm3 (4.5-11.0) 03/02/18 04:04 RBC 3.01 M/mm3 (3.65-5.03) L 03/02/18 04:04 Hgb 9.5 gm/dl (10.1-14.3) L 03/02/18 04:04 Hct 28.5 % (30.3-42.9) L 03/02/18 04:04 MCV 95 fl (79-97) 03/02/18 04:04 MCH 32 pg (28-32) 03/02/18 04:04 MCHC 33 % (30-34) 03/02/18 04:04 RDW 15.0 % (13.2-15.2) 03/02/18 04:04 Plt Count 182 K/mm3 (140-440) 03/02/18 04:04 Lymph % (Auto) [employer] Team Lead 03/02/18 04:04 Lymph # [employer] Team Lead 03/02/18 04:04 Add Manual Diff Complete 03/01/18 12:51 Total Counted 100 03/02/18 04:04 Seg Neutrophils % [employer] Team Lead 03/02/18 04:04 Seg Neuts % (Manual) 18.0 % (40.0-70.0) L 03/02/18 04:04 Band Neutrophils % 1.0 % 03/02/18 04:04 Lymphocytes % (Manual) 68.0 % (13.4-35.0) H 03/02/18 04:04 Reactive Lymphs % (Man) 11.0 % 03/02/18 04:04 Monocytes % (Manual) 2.0 % (0.0-7.3) 03/02/18 04:04 Eosinophils % (Manual) 0 % (0.0-4.3) 03/02/18 04:04 Basophils % (Manual) 0 % (0.0-1.8) 03/02/18 04:04 Metamyelocytes % 0 % 03/02/18 04:04 Myelocytes % 0 % 03/02/18 04:04 Promyelocytes % 0 % 03/02/18 04:04 Blast Cells % 0 % 03/02/18 04:04 Nucleated RBC % Not Reportable 03/02/18 04:04 Seg Neutrophils # Man 1.8 K/mm3 (1.8-7.7) 03/02/18 04:04 Band Neutrophils # 0.1 K/mm3 03/02/18 04:04 Lymphocytes # (Manual) 6.9 K/mm3 (1.2-5.4) H 03/02/18 04:04 Abs React Lymphs (Man) 1.1 K/mm3 03/02/18 04:04 Monocytes # (Manual) 0.2 K/mm3 (0.0-0.8) 03/02/18 04:04 Eosinophils # (Manual) 0.0 K/mm3 (0.0-0.4) 03/02/18 04:04 Basophils # (Manual) 0.0 K/mm3 (0.0-0.1) 03/02/18 04:04 Metamyelocytes # 0.0 K/mm3 03/02/18 04:04 Myelocytes # 0.0 K/mm3 03/02/18 04:04 Promyelocytes # 0.0 K/mm3 03/02/18 04:04 Blast Cells # 0.0 K/mm3 03/02/18 04:04 Pathologist Review 03/02/18 04:04 WBC Morphology Not Reportable 03/02/18 04:04 Hypersegmented Neuts Not Reportable 03/02/18 04:04 Hyposegmented Neuts Not Reportable 03/02/18 04:04 Hypogranular Neuts Not Reportable 03/02/18 04:04 Smudge Cells Not Reportable 03/02/18 04:04 Toxic Granulation Not Reportable 03/02/18 04:04 Toxic Vacuolation Not Reportable 03/02/18 04:04 Dohle Bodies Not Reportable 03/02/18 04:04 Pelger-Huet Anomaly Not Reportable 03/02/18 04:04 Mina Rods Not Reportable 03/02/18 04:04 Platelet Estimate Consistent w auto 03/02/18 04:04 Clumped Platelets Not Reportable 03/02/18 04:04 Plt Clumps, EDTA Not Reportable 03/02/18 04:04 Large Platelets Not Reportable 03/02/18 04:04 Giant Platelets Not Reportable 03/02/18 04:04 Platelet Satelliting Not Reportable 03/02/18 04:04 Plt Morphology Comment Not Reportable 03/02/18 04:04 RBC Morphology Not Reportable 03/02/18 04:04 Dimorphic RBCs Not Reportable 03/02/18 04:04 Polychromasia Not Reportable 03/02/18 04:04 Hypochromasia Not Reportable 03/02/18 04:04 Poikilocytosis 1+ 03/02/18 04:04 Anisocytosis 1+ 03/02/18 04:04 Microcytosis Not Reportable 03/02/18 04:04 Macrocytosis Not Reportable 03/02/18 04:04 Spherocytes Not Reportable 03/02/18 04:04 Pappenheimer Bodies Not Reportable 03/02/18 04:04 Sickle Cells Not Reportable 03/02/18 04:04 Target Cells Not Reportable 03/02/18 04:04 Tear Drop Cells Few 03/02/18 04:04 Ovalocytes Not Reportable 03/02/18 04:04 Helmet Cells Not Reportable 03/02/18 04:04 [place] Bodies Not Reportable 03/02/18 04:04 [place] Rings Not Reportable 03/02/18 04:04 [place] Cells Not Reportable 03/02/18 04:04 Bite Cells Not Reportable 03/02/18 04:04 Crenated Cell Not Reportable 03/02/18 04:04 Elliptocytes Few 03/02/18 04:04 Acanthocytes (Spur) Few 03/02/18 04:04 Rouleaux Not Reportable 03/02/18 04:04 Hemoglobin C Crystals Not Reportable 03/02/18 04:04 Schistocytes Not Reportable 03/02/18 04:04 Malaria parasites Not Reportable 03/02/18 04:04 ESR 78 mm/Hr (0-20) 03/03/18 05:20 [place] Bodies Not Reportable 03/02/18 04:04 Hem Pathologist Commnt Sent to pathology 03/02/18 04:04 Sodium 140 mmol/L (137-145) 03/04/18 06:04 Potassium 4.6 mmol/L (3.6-5.0) 03/04/18 06:04 Chloride 104.8 mmol/L (98-107) 03/04/18 06:04 Carbon Dioxide 21 mmol/L (22-30) L 03/04/18 06:04 Anion Gap 19 mmol/L 03/04/18 06:04 BUN 24 mg/dL (7-17) H 03/04/18 06:04 Creatinine 1.3 mg/dL (0.7-1.2) H 03/04/18 06:04 Estimated GFR 49 ml/min 03/04/18 06:04 BUN/Creatinine Ratio 18 % 03/04/18 06:04 Glucose 105 mg/dL (65-100) H 03/04/18 06:04 POC Glucose 80 (70-105) 03/04/18 21:48 Hemoglobin A1c 6.4 % (4-6) H 03/02/18 00:31 Lactic Acid 0.50 mmol/L (0.7-2.0) L 03/01/18 12:55 Calcium 8.8 mg/dL (8.4-10.2) 03/04/18 06:04 Total Bilirubin 0.60 mg/dL (0.1-1.2) 03/02/18 04:04 AST 11 units/L (5-40) 03/02/18 04:04 ALT 7 units/L (7-56) 03/02/18 04:04 Alkaline Phosphatase 73 units/L (35-129) 03/02/18 04:04 Lactate Dehydrogenase 141 units/L (91-180) 03/03/18 05:20 Total Creatine Kinase 38 units/L (30-135) 03/01/18 12:55 Total Protein 6.3 g/dL (6.3-8.2) 03/02/18 04:04 Albumin 3.8 g/dL (3.9-5) L 03/02/18 04:04 Albumin/Globulin Ratio 1.5 % 03/02/18 04:04 Urine Color Yellow (Yellow) 03/01/18 Unknown Urine Turbidity Clear (Clear) 03/01/18 Unknown Urine pH 5.0 (5.0-7.0) 03/01/18 Unknown Ur Specific Phenix 1.016 (1.003-1.030) 03/01/18 Unknown Urine Protein 30 mg/dl mg/dL (Negative) 03/01/18 Unknown Urine Glucose (UA) Neg mg/dL (Negative) 03/01/18 Unknown Urine Ketones Neg mg/dL (Negative) 03/01/18 Unknown Urine Blood Neg (Negative) 03/01/18 Unknown Urine Nitrite Neg (Negative) 03/01/18 Unknown Urine Bilirubin Neg (Negative) 03/01/18 Unknown Urine Urobilinogen < 2.0 mg/dL (<2.0) 03/01/18 Unknown Ur Leukocyte Esterase Neg (Negative) 03/01/18 Unknown Urine WBC (Auto) 2.0 /HPF (0.0-6.0) 03/01/18 Unknown Urine RBC (Auto) 6.0 /HPF (0.0-6.0) 03/01/18 Unknown U Epithel Cells (Auto) 2.0 /HPF (0-13.0) 03/01/18 Unknown Urine Bacteria (Auto) 1+ /HPF (Negative) 03/01/18 Unknown Urine Mucus Few /HPF 03/01/18 Unknown CSF Appearance Clear 03/01/18 17:45 CSF Color Colorless 03/01/18 17:45 CSF WBC 1 /mm3 (1-10) 03/01/18 17:45 CSF RBC 0 /mm3 (0-0) 03/01/18 17:45 CSF Seg Neutrophils 0 % (0-6) 03/01/18 17:45 CSF Lymphocytes % 0 % (40-80) 03/01/18 17:45 CSF Reactive Lymphs 0 % 03/01/18 17:45 CSF Monocytes % 0 % (15-45) 03/01/18 17:45 CSF Eosinophils % 0 % 03/01/18 17:45 CSF Basophils 0 % 03/01/18 17:45 CSF Comment No cells seen 03/01/18 17:45 CSF Pathologist Review C 03/01/18 17:45 CSF Glucose 91 mg/dL 03/01/18 17:45 CSF Total Protein 33 mg/dL 03/01/18 17:45
[2018-03-05] MEDS: AMARYL PO SCH (08:31)
[2018-03-05] MEDS: PERCOCET 5/325 PO PRN (10:12)
[2018-03-05] MEDS: PLAVIX PO SCH (10:13)
[2018-03-05] MEDS: COZAAR PO SCH (10:13)
[2018-03-05] MEDS: COREG PO SCH (10:14)
[2018-03-05] MEDS: NORVASC PO SCH (10:14)
[2018-03-05] MEDS: SODIUM CHLORIDE FLUSH SYRINGE 10 ML IV SCH ×2 (10:15→22:02)
[2018-03-05] MEDS: LOVENOX SUB-Q SCH (10:16)
--- NOTE | 2018-03-05 10:44 | Progress Note ---
Assessment and Plan Assessment 1. Strep group B bacteremia 2. Bilateral cervical lymphadenopathy 3. Generalized lymphadenopathy 4. Abnormal transthoracic echocardiogram with questionable small vegetation in the aortic valve. 5. Hypertension Plan Continue IV antibiotics Patient with considerable bilateral neck pain. Currently patient is on IV antibiotics. No significant diastolic murmur of aortic regurgitation on examination. No significant aortic regurgitation on transthoracic echo. In view of the severe neck pain we'll hold off on the transesophageal echocardiogram for tomorrow. Aggressive pain control. KRUPA Tuesday or Tuesday Discussed with ID Subjective Date of service: 03/05/18 Principal diagnosis: Fever Interval history: Still complaining of severe pain left neck and left shoulder Objective Vital Signs Temp Pulse Pulse Resp BP Pulse Ox 03/05/18 10:14 75 144/63 03/05/18 10:13 75 144/63 03/05/18 10:12 20 03/05/18 07:32 98.6 F 75 18 144/63 97 03/05/18 05:03 18 03/05/18 04:33 20 03/05/18 02:45 98.0 F 21 147/71 03/05/18 02:00 65 99 03/04/18 22:06 16 03/04/18 22:00 68 20 97 03/04/18 21:07 84 155/66 03/04/18 21:06 20 03/04/18 20:29 98.6 F 84 20 155/66 99 03/04/18 17:56 20 03/04/18 14:07 16 03/04/18 13:37 97.5 F L 66 18 124/70 100 - Physical Examination Narrative exam: Physical examination Vitals reviewed GEN: No acute distress noted HEENT: Carotids 2+ NECK: Supple CVS: S1 and S2 heard no significant murmur or gallop noted LUNGS/CHEST: Normal auscultation ABD: Soft nontender Extremities: No edema noted normal color NEURO: Alert moves all all 4 extremities PSY: Stable
--- NOTE | 2018-03-05 12:54 | Progress Note ---
Assessment and Plan Assessment: 1) Fever: Present on admission. Etiology most likely Strep bacteremia +/- malignancy. 2) Strep group B bacteremia: likely real, ? Infective endocarditis. TTE with possible AV vegetation. UA neg. 3) Massive generalized lymphadenompathy: ? lymphoma ? malignancy. -CT chest showed extensive bilateral intrathoracic and axillary LNs. -CT abd showed massive retroperitoneal, mesenteric, portal, celiac and carey iliac LNs. -CT cervical carey cervical LNs. -s/p L axillary LN biopsy 03/03. 4) Severe neck pain: from LNs? CT head enlarged pituitary gland. Underwent LP CSF demonstrated 1 WBC, normal glucose and protein. CT cervical bilateral extensive cervical LNs 5) Hypertension 6) Diabetes Plan: -Will f/u blood cultures. -Continue cefazolin. -Will f/u LN biopsy. -Needs KRUPA when neck pain improved, d/w cards Dr Zepeda today. Marianna Galan MD ID attending [id number] [phone]. Subjective Date of service: 03/05/18 Principal diagnosis: Fever Interval history: Afebrile. Had severe Left neck pain earlier today. It is better now. Microbiology: Blood cultures: 03/01 Beta hem Strep group B 2 of 4 bottles. 03/02 NGTD. CSF Cx 03/01 Neg. Current Antimicrobials: Cefazolin 03/03- Prior antimicrobials Ceftriaxone 03/01-03/03 Objective - Exam Narrative Exam: General appearance: Alert in NAD, conversant Eyes: anicteric sclerae, moist conjunctivae; no lid-lag; PERRLA HENT: Atraumatic; oropharynx clear with moist mucous membranes and no mucosal ulcerations/no oral thrush; normal hard and soft palate. Normal external ears. Neck: Decreased ROM due to pain. Lungs: CTA, with normal respiratory effort and no intercostal retractions CV: S1,S2. Abdomen: BS. Soft, mildly distended. Extremities: No peripheral edema. Skin: Normal temperature, turgor and texture; no rash, ulcers or subcutaneous nodules Psych: Appropriate affect, alert and oriented to person, place and time. Neuro: alert and oriented x 3. Grossly non-focal. Lines: PIV - Constitutional Vitals: Vital Signs Temp Pulse Resp BP Pulse Ox 98.6 F 75 20 144/63 97 03/05/18 07:32 03/05/18 10:14 03/05/18 10:12 03/05/18 10:14 03/05/18 07:32 Temperature -Last 24 Hours Temperature 98.6 F Temperature 98.0 F Temperature 98.6 F Temperature 97.5 F - Labs CBC & Chem 7: 03/02/18 04:04 03/04/18 06:04 Labs: Abnormal lab results 03/04/18 Range/Units 16:30 POC Glucose 130 H (70-105)
[2018-03-05] MEDS: NACL 0.9% 1000 ML 1,000 ML IV SCH (22:01)
[2018-03-05] MEDS: PRAVACHOL PO SCH (22:10)
[2018-03-06] MEDS: PERCOCET 5/325 PO PRN ×4 (01:30→20:21)
[2018-03-06] MEDS: COREG PO SCH ×3 (01:32→21:13)
[2018-03-06] MEDS: ceFAZolin 2 GM in NACL 0.9% 100 ML IV SCH ×4 (01:33→21:12)
[2018-03-06 05:05] LABS: Hematocrit 25.9 % (30.3-42.9); Hemoglobin 8.5 gm/dl (10.1-14.3); Mean Corpuscular HGB Conc 33 % (30-34); Mean Corpuscular Hemoglobin 31 pg (28-32); Mean Corpuscular Volume 95 fl (79-97); Platelet Count 259 K/mm3 (140-440); Red Blood Count 2.72 M/mm3 (3.65-5.03); Red Cell Distribution Width 14.8 % (13.2-15.2)
[2018-03-06 06:20] LABS: Band Neutrophils # (Manual) 0.1 K/mm3; Basophils % (Manual) 0 % (0.0-1.8); Eosinophils % (Manual) 0 % (0.0-4.3); Monocytes % (Manual) 0 % (0.0-7.3); Total Cells Counted 100
[2018-03-06 06:21] LABS: Anisocytosis 1+; Hypochromasia 1+; Platelet Estimate Consistent w Auto
--- NOTE | 2018-03-06 07:07 | Progress Note ---
Assessment and Plan Assessment and plan: 67-year-old female was presented to the emergency department complaining of fever and neck pain for the last 2 days. Patient denied nausea, vomiting, headache. Neck pain; likely from the LAP, symptomatic management SIRS evidenced by fever and tachycardia; resolved Bacteremia withe GBSC; infectious disease doctor consulted, currently on IV cefazolin, ID recommended 2 weeks of IV antibiotic may be longer if it is infective endocarditis, patient needs outpatient IV antibiotic arrangement once KRUPA done. Echo was done and showed thickened aortic valves; suspected for vegetation cardiology consulted and recommended KRUPA, once the neck pain is getting better Chronic kidney disease: Improving Lymphoma; hematology/oncology consulted, ordered some tests and recommend outpatient follow-up in his office, lymph node biopsy was taken - pain control - Blood cultures positive for group B streptococcus - CSF is negative for meningitis DVT prophylaxis - On heparin Disposition - Continue inpatient care, Patient needs KRUPA before discharge. History Interval history: Patient was seen and evaluated this morning, Patient still complains severe neck pain. No fever, nausea, vomiting, headache. Hospitalist Physical - Physical exam Narrative exam: Not in cardiopulmonary distress. The patient appeared well nourished and normally developed. Neck pain elicited by movement. Vital signs as documented. Head exam is unremarkable. No scleral icterus . Neck is without jugular venous distension, thyromegaly, or carotid bruits. Lungs are clear to auscultation. Cardiac exam reveals regular rate and Rhythm. First and second heart sounds normal. No murmurs, rubs or gallops. Abdominal exam reveals normal bowel sounds, no masses, no organomegaly and no aortic enlargement. Extremities are nonedematous and both femoral and pedal pulses are normal. 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 Negative meningeal signs - Constitutional Vitals: Temp Pulse Resp BP Pulse Ox 97.3 F L 68 50 H 149/66 98 03/06/18 03:44 03/06/18 03:44 03/06/18 03:44 03/06/18 03:44 03/06/18 03:44 General appearance: Present: mild distress Results - Labs CBC & Chem 7: 03/06/18 04:17 03/04/18 06:04 Labs: Laboratory Last Values WBC 7.1 K/mm3 (4.5-11.0) 03/06/18 04:17 RBC 2.72 M/mm3 (3.65-5.03) L 03/06/18 04:17 Hgb 8.5 gm/dl (10.1-14.3) L 03/06/18 04:17 Hct 25.9 % (30.3-42.9) L 03/06/18 04:17 MCV 95 fl (79-97) 03/06/18 04:17 MCH 31 pg (28-32) 03/06/18 04:17 MCHC 33 % (30-34) 03/06/18 04:17 RDW 14.8 % (13.2-15.2) 03/06/18 04:17 Plt Count 259 K/mm3 (140-440) 03/06/18 04:17 Lymph % (Auto) Quill Collector 03/06/18 04:17 Lymph # Quill Collector 03/06/18 04:17 Add Manual Diff Complete 03/06/18 04:17 Total Counted 100 03/06/18 04:17 Seg Neutrophils % Quill Collector 03/06/18 04:17 Seg Neuts % (Manual) 35.0 % (40.0-70.0) L 03/06/18 04:17 Band Neutrophils % 1.0 % 03/06/18 04:17 Lymphocytes % (Manual) 64.0 % (13.4-35.0) H 03/06/18 04:17 Reactive Lymphs % (Man) 0 % 03/06/18 04:17 Monocytes % (Manual) 0 % (0.0-7.3) 03/06/18 04:17 Eosinophils % (Manual) 0 % (0.0-4.3) 03/06/18 04:17 Basophils % (Manual) 0 % (0.0-1.8) 03/06/18 04:17 Metamyelocytes % 0 % 03/06/18 04:17 Myelocytes % 0 % 03/06/18 04:17 Promyelocytes % 0 % 03/06/18 04:17 Blast Cells % 0 % 03/06/18 04:17 Nucleated RBC % Not Reportable 03/06/18 04:17 Seg Neutrophils # Man 2.5 K/mm3 (1.8-7.7) 03/06/18 04:17 Band Neutrophils # 0.1 K/mm3 03/06/18 04:17 Lymphocytes # (Manual) 4.5 K/mm3 (1.2-5.4) 03/06/18 04:17 Abs React Lymphs (Man) 0.0 K/mm3 03/06/18 04:17 Monocytes # (Manual) 0.0 K/mm3 (0.0-0.8) 03/06/18 04:17 Eosinophils # (Manual) 0.0 K/mm3 (0.0-0.4) 03/06/18 04:17 Basophils # (Manual) 0.0 K/mm3 (0.0-0.1) 03/06/18 04:17 Metamyelocytes # 0.0 K/mm3 03/06/18 04:17 Myelocytes # 0.0 K/mm3 03/06/18 04:17 Promyelocytes # 0.0 K/mm3 03/06/18 04:17 Blast Cells # 0.0 K/mm3 03/06/18 04:17 Pathologist Review 03/02/18 04:04 WBC Morphology Not Reportable 03/06/18 04:17 Hypersegmented Neuts Not Reportable 03/06/18 04:17 Hyposegmented Neuts Not Reportable 03/06/18 04:17 Hypogranular Neuts Not Reportable 03/06/18 04:17 Smudge Cells Not Reportable 03/06/18 04:17 Toxic Granulation Not Reportable 03/06/18 04:17 Toxic Vacuolation Not Reportable 03/06/18 04:17 Dohle Bodies Not Reportable 03/06/18 04:17 Pelger-Huet Anomaly Not Reportable 03/06/18 04:17 Mina Rods Not Reportable 03/06/18 04:17 Platelet Estimate Consistent w auto 03/06/18 04:17 Clumped Platelets Not Reportable 03/06/18 04:17 Plt Clumps, EDTA Not Reportable 03/06/18 04:17 Large Platelets Not Reportable 03/06/18 04:17 Giant Platelets Not Reportable 03/06/18 04:17 Platelet Satelliting Not Reportable 03/06/18 04:17 Plt Morphology Comment Not Reportable 03/06/18 04:17 RBC Morphology Not Reportable 03/06/18 04:17 Dimorphic RBCs Not Reportable 03/06/18 04:17 Polychromasia Not Reportable 03/06/18 04:17 Hypochromasia 1+ 03/06/18 04:17 Poikilocytosis Not Reportable 03/06/18 04:17 Anisocytosis 1+ 03/06/18 04:17 Microcytosis Not Reportable 03/06/18 04:17 Macrocytosis Not Reportable 03/06/18 04:17 Spherocytes Not Reportable 03/06/18 04:17 Pappenheimer Bodies Not Reportable 03/06/18 04:17 Sickle Cells Not Reportable 03/06/18 04:17 Target Cells Not Reportable 03/06/18 04:17 Tear Drop Cells Not Reportable 03/06/18 04:17 Ovalocytes Not Reportable 03/06/18 04:17 Helmet Cells Not Reportable 03/06/18 04:17 [place] Bodies Not Reportable 03/06/18 04:17 Norman Rings Not Reportable 03/06/18 04:17 [place] Cells Not Reportable 03/06/18 04:17 Bite Cells Not Reportable 03/06/18 04:17 Crenated Cell Not Reportable 03/06/18 04:17 Elliptocytes Not Reportable 03/06/18 04:17 Acanthocytes (Spur) Not Reportable 03/06/18 04:17 Rouleaux Not Reportable 03/06/18 04:17 Hemoglobin C Crystals Not Reportable 03/06/18 04:17 Schistocytes Not Reportable 03/06/18 04:17 Malaria parasites Not Reportable 03/06/18 04:17 ESR 78 mm/Hr (0-20) 03/03/18 05:20 [place] Bodies Not Reportable 03/06/18 04:17 Hem Pathologist Commnt No 03/06/18 04:17 Sodium 140 mmol/L (137-145) 03/04/18 06:04 Potassium 4.6 mmol/L (3.6-5.0) 03/04/18 06:04 Chloride 104.8 mmol/L (98-107) 03/04/18 06:04 Carbon Dioxide 21 mmol/L (22-30) L 03/04/18 06:04 Anion Gap 19 mmol/L 03/04/18 06:04 BUN 24 mg/dL (7-17) H 03/04/18 06:04 Creatinine 1.3 mg/dL (0.7-1.2) H 03/04/18 06:04 Estimated GFR 49 ml/min 03/04/18 06:04 BUN/Creatinine Ratio 18 % 03/04/18 06:04 Glucose 105 mg/dL (65-100) H 03/04/18 06:04 POC Glucose 136 (70-105) H 03/05/18 22:11 Hemoglobin A1c 6.4 % (4-6) H 03/02/18 00:31 Lactic Acid 0.50 mmol/L (0.7-2.0) L 03/01/18 12:55 Calcium 8.8 mg/dL (8.4-10.2) 03/04/18 06:04 Total Bilirubin 0.60 mg/dL (0.1-1.2) 03/02/18 04:04 AST 11 units/L (5-40) 03/02/18 04:04 ALT 7 units/L (7-56) 03/02/18 04:04 Alkaline Phosphatase 73 units/L (35-129) 03/02/18 04:04 Lactate Dehydrogenase 141 units/L (91-180) 03/03/18 05:20 Total Creatine Kinase 38 units/L (30-135) 03/01/18 12:55 Total Protein 6.3 g/dL (6.3-8.2) 03/02/18 04:04 Albumin 3.8 g/dL (3.9-5) L 03/02/18 04:04 Albumin/Globulin Ratio 1.5 % 03/02/18 04:04 Ffpx-2-Ltagcnvrjbwzx 7.46 mg/L (<=2.51) H 03/03/18 05:20 Urine Color Yellow (Yellow) 03/01/18 Unknown Urine Turbidity Clear (Clear) 03/01/18 Unknown Urine pH 5.0 (5.0-7.0) 03/01/18 Unknown Ur Specific [place] 1.016 (1.003-1.030) 03/01/18 Unknown Urine Protein 30 mg/dl mg/dL (Negative) 03/01/18 Unknown Urine Glucose (UA) Neg mg/dL (Negative) 03/01/18 Unknown Urine Ketones Neg mg/dL (Negative) 03/01/18 Unknown Urine Blood Neg (Negative) 03/01/18 Unknown Urine Nitrite Neg (Negative) 03/01/18 Unknown Urine Bilirubin Neg (Negative) 03/01/18 Unknown Urine Urobilinogen < 2.0 mg/dL (<2.0) 03/01/18 Unknown Ur Leukocyte Esterase Neg (Negative) 03/01/18 Unknown Urine WBC (Auto) 2.0 /HPF (0.0-6.0) 03/01/18 Unknown Urine RBC (Auto) 6.0 /HPF (0.0-6.0) 03/01/18 Unknown U Epithel Cells (Auto) 2.0 /HPF (0-13.0) 03/01/18 Unknown Urine Bacteria (Auto) 1+ /HPF (Negative) 03/01/18 Unknown Urine Mucus Few /HPF 03/01/18 Unknown CSF Appearance Clear 03/01/18 17:45 CSF Color Colorless 03/01/18 17:45 CSF WBC 1 /mm3 (1-10) 03/01/18 17:45 CSF RBC 0 /mm3 (0-0) 03/01/18 17:45 CSF Seg Neutrophils 0 % (0-6) 03/01/18 17:45 CSF Lymphocytes % 0 % (40-80) 03/01/18 17:45 CSF Reactive Lymphs 0 % 03/01/18 17:45 CSF Monocytes % 0 % (15-45) 03/01/18 17:45 CSF Eosinophils % 0 % 03/01/18 17:45 CSF Basophils 0 % 03/01/18 17:45 CSF Comment No cells seen 03/01/18 17:45 CSF Pathologist Review C 03/01/18 17:45 CSF Glucose 91 mg/dL 03/01/18 17:45 CSF Total Protein 33 mg/dL 03/01/18 17:45
--- NOTE | 2018-03-06 07:47 | Ultrasound Report ---
ULTRASOUND BIOPSY LYMPH NODE History: Lymphadenopathy. Description of procedure: Informed consent was obtained. Sterile technique was utilized. 1% lidocaine for skin anesthesia. Using ultrasound guidance, Two 18-gauge core biopsies were obtained from an enlarged left axillary lymph node measuring 8.7 x 3.4 cm. One sample was placed in flow cytometry media and one sample was placed in formalin. No complications. Impression: Successful ultrasound-guided core biopsy of an enlarged left axillary lymph node.
[2018-03-06] MEDS: MORPHINE IV PRN ×3 (08:38→21:05)
--- NOTE | 2018-03-06 08:57 | Progress Note ---
Assessment and Plan Assessment: 1) Fever: Present on admission. Etiology most likely Strep bacteremia +/- malignancy. 2) Strep group B bacteremia: likely real, ? Infective endocarditis. TTE with possible AV vegetation. UA neg. 3) Massive generalized lymphadenompathy: ? lymphoma ? malignancy. -CT chest showed extensive bilateral intrathoracic and axillary LNs. -CT abd showed massive retroperitoneal, mesenteric, portal, celiac and carey iliac LNs. -CT cervical carey cervical LNs. -s/p L axillary LN biopsy 03/03. 4) Severe neck pain: from LNs? CT head enlarged pituitary gland. Underwent LP CSF demonstrated 1 WBC, normal glucose and protein. CT cervical bilateral extensive cervical LNs 5) Hypertension 6) Diabetes Plan: -Will f/u blood cultures. -Continue cefazolin. Final regimen and duration of antibiotics pending KRUPA. If KRUPA +vegetation will need 4 weeks. -Will f/u LN biopsy. -Needs KRUPA when neck pain improved, d/w cards Dr Zepeda yesterday -Will f/u CMV and EBV. -d/w pt, pt's sister, RN. Marianna Galan MD ID attending [phone]. Subjective Date of service: 03/06/18 Principal diagnosis: Fever Interval history: Afebrile. Pt is in severe pain. She is constipated. Poor appetite. Microbiology: Blood cultures: 03/01 Beta hem Strep group B 2 of 4 bottles. 03/02 NGTD. CSF Cx 03/01 Neg. Current Antimicrobials: Cefazolin 03/03- Prior antimicrobials Ceftriaxone 03/01-03/03 Objective - Exam Narrative Exam: General appearance: Alert, in pain, conversant Eyes: anicteric sclerae, moist conjunctivae; PERRLA HENT: Atraumatic; oropharynx clear with moist mucous membranes and no mucosal ulcerations/no oral thrush; normal hard and soft palate. Normal external ears. Neck: Decreased ROM due to pain. Lungs: CTA, with normal respiratory effort and no intercostal retractions CV: S1,S2. Abdomen: +BS. Soft, distended. Extremities: No peripheral edema. Skin: Normal temperature, turgor and texture; no rash, ulcers or subcutaneous nodules Psych: Appropriate affect, alert and oriented to person, place and time. Neuro: alert and oriented x 3. Grossly non-focal. Lines: PIV - Constitutional Vitals: Vital Signs Temp Pulse Resp BP Pulse Ox 97.3 F L 68 50 H 149/66 98 03/06/18 03:44 03/06/18 03:44 03/06/18 03:44 03/06/18 03:44 03/06/18 03:44 Temperature -Last 24 Hours Temperature 97.3 F Temperature 98.7 F Temperature 97.8 F - Labs CBC & Chem 7: 03/06/18 04:17 03/04/18 06:04 Labs: Abnormal lab results 03/03/18 03/05/18 03/05/18 Range/Units 05:20 16:37 22:11 RBC (3.65-5.03) M/mm3 Hgb (10.1-14.3) gm/dl Hct (30.3-42.9) % Seg Neuts % (Manual) (40.0-70.0) % Lymphocytes % (Manual) (13.4-35.0) % POC Glucose 111 H 136 H (70-105) Wtgq-3-Lmxiyeozufmvo 7.46 H (<=2.51) mg/L 03/06/18 Range/Units 04:17 RBC 2.72 L (3.65-5.03) M/mm3 Hgb 8.5 L (10.1-14.3) gm/dl Hct 25.9 L (30.3-42.9) % Seg Neuts % (Manual) 35.0 L (40.0-70.0) % Lymphocytes % (Manual) 64.0 H (13.4-35.0) % POC Glucose (70-105) Lbrd-8-Emxvtfrsjqehc (<=2.51) mg/L
[2018-03-06] MEDS ORDERED: DULCOLAX PR PRN (10:00)
[2018-03-06] MEDS: PLAVIX PO SCH (10:04)
[2018-03-06] MEDS: AMARYL PO SCH (10:05)
[2018-03-06] MEDS: LOVENOX SUB-Q SCH (10:07)
[2018-03-06] MEDS: COZAAR PO SCH (10:13)
[2018-03-06] MEDS: SODIUM CHLORIDE FLUSH SYRINGE 10 ML IV SCH ×2 (10:14→21:14)
[2018-03-06] MEDS: NORVASC PO SCH (10:14)
--- NOTE | 2018-03-06 10:46 | Progress Note ---
Assessment and Plan Strep group B bacteremia Cervical lymphadenopathy, bilateral Anemia Hypertension Diabetes Echocardiogram reports a possible aortic valve vegetation. There is a normal left ventricular systolic function, ejection fraction 50-55%. Plan: In view of the severe neck pain we'll hold off on the transesophageal echocardiogram. Subjective Date of service: 03/06/18 Principal diagnosis: Fever Interval history: Patient reports continued severe neck pain. She denies chest pain and shortness of breath. Objective Vital Signs Temp Pulse Resp BP BP Pulse Ox 03/06/18 10:14 65 98/80 03/06/18 10:13 65 98/80 03/06/18 10:05 64 98/80 03/06/18 07:44 98.3 F 66 18 161/74 98 03/06/18 03:44 97.3 F L 68 50 H 149/66 98 03/05/18 21:03 98.7 F 79 20 156/83 99 03/05/18 15:58 97.8 F 68 20 130/66 98 - Physical Examination General: No Apparent Distress HEENT: Positive: PERRL Cardiac: Positive: Reg Rate and Rhythm Lungs: Positive: Decreased Breath Sounds Neuro: Positive: Grossly Intact Extremities: Absent: edema - Labs and Meds CBC 03/06/18 Range/Units 04:17 WBC 7.1 (4.5-11.0) K/mm3 RBC 2.72 L (3.65-5.03) M/mm3 Hgb 8.5 L (10.1-14.3) gm/dl Hct 25.9 L (30.3-42.9) % Plt Count 259 (140-440) K/mm3 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
[2018-03-06] MEDS: FLEXERIL PO SCH ×2 (10:53→21:13)
[2018-03-06] MEDS: NACL 0.9% 1000 ML 1,000 ML IV SCH (14:31)
--- NOTE | 2018-03-06 19:51 | Progress Note ---
Assessment and Plan - Patient Problems (1) Back pain Current Visit: Yes Status: Acute Qualifiers: Back pain location: thoracic back pain Chronicity: unspecified Back pain laterality: unspecified Qualified Code(s): M54.6 - Pain in thoracic spine Plan to address problem: Pain control. (2) QUIRINO (acute kidney injury) Current Visit: Yes Status: Acute Plan to address problem: corrective measures. (3) Neck pain Current Visit: Yes Status: Acute Plan to address problem: See notes. Awaiting bx report. Subjective Date of service: 03/06/18 Principal diagnosis: Fever Interval history: Patient seen, resting in bed, records reviewed, s/p LN bx , awaiting path report. Continue with cerrent management until path report out. Ct of abd/ pelvic reviewed, with multiple Ln, probably related to the same LN in the axilla /chest/cervical.Once her renal numbers improve, will benefit from contrast CT. Patient seen, resting in bed, still complains of MSK pain, LN bx completed, I am unable to view the path report.Will speak with pathology people tomorrow. Objective - Constitutional Vitals: Vital Signs - 12hr 03/06/18 03/06/18 03/06/18 10:00 10:05 10:13 Temperature Pulse Rate 64 65 Respiratory 18 Rate Blood Pressure 98/80 98/80 O2 Sat by Pulse Oximetry 03/06/18 03/06/18 10:14 13:48 Temperature 97.9 F Pulse Rate 65 73 Respiratory 18 Rate Blood Pressure 98/80 123/63 O2 Sat by Pulse 99 Oximetry General appearance: Present: mild distress - EENT Eyes: PERRL, EOM intact ENT: hearing intact, clear oral mucosa Ears: bilateral: normal - Neck Neck: supple, normal ROM - Respiratory Respiratory effort: normal Respiratory: bilateral: CTA - Breasts Breasts: deferred - Cardiovascular Rhythm: regular Heart Sounds: Present: S1 & S2. Absent: gallop, rub Extremities: pulses intact, No edema, normal color, Full ROM - Gastrointestinal General gastrointestinal: Present: soft, non-tender, non-distended, normal bowel sounds Rectal Exam: deferred - Genitourinary Female genitourinary: deferred - Integumentary Integumentary: clear, warm, dry - Musculoskeletal Musculoskeletal: 1, strength equal bilaterally - Psychiatric Psychiatric: appropriate mood/affect, intact judgment & insight - Labs CBC & Chem 7: 03/06/18 04:17 03/04/18 06:04 Labs: Abnormal lab results 03/05/18 03/06/18 03/06/18 Range/Units 22:11 04:17 16:48 RBC 2.72 L (3.65-5.03) M/mm3 Hgb 8.5 L (10.1-14.3) gm/dl Hct 25.9 L (30.3-42.9) % Seg Neuts % (Manual) 35.0 L (40.0-70.0) % Lymphocytes % (Manual) 64.0 H (13.4-35.0) % POC Glucose 136 H 145 H (70-105)
[2018-03-06] MEDS: PRAVACHOL PO SCH (21:13)
[2018-03-07] MEDS: MORPHINE IV PRN (01:35)
[2018-03-07] MEDS: PERCOCET 5/325 PO PRN (04:50)
[2018-03-07] MEDS: NACL 0.9% 1000 ML 1,000 ML IV SCH ×2 (04:58→21:04)
[2018-03-07] MEDS: ceFAZolin 2 GM in NACL 0.9% 100 ML IV SCH ×3 (05:10→21:04)
[2018-03-07 06:47] LABS: Calcium 8.7 mg/dL (8.4-10.2)
[2018-03-07] MEDS: FLEXERIL PO SCH ×3 (09:00→21:04)
--- NOTE | 2018-03-07 09:50 | Progress Note ---
Assessment and Plan Assessment and plan: Neck pain; likely from the LAD, symptomatic management. - CSF is negative for meningitis Sepsis evidenced by fever and tachycardia and diagnosis of bacteremia. Continue IV antibiotics. Strep group B Bacteremia;Blood cultures positive for group B streptococcus Infectious disease following, currently on IV cefazolin, ID recommended 2 weeks of IV antibiotic may be longer if it is infective endocarditis, patient needs outpatient IV antibiotic arrangement once KRUPA done. Echo was done and showed thickened aortic valves; suspected for vegetation cardiology consulted and recommended KRUPA, once the neck pain is getting better Chronic kidney disease: Improving. Follow-up BMP Lymphoma; hematology/oncology consulted, ordered some tests and recommend outpatient follow-up in his office, lymph node biopsy was taken - pain control -CT chest showed extensive bilateral intrathoracic and axillary LNs. -CT abd showed massive retroperitoneal, mesenteric, portal, celiac and carey iliac LNs. -CT cervical carey cervical LNs. Hypertension. Continue antihypertensive medications. Diabetes mellitus type 2. Continue tight glycemic control. DVT prophylaxis - On heparin Disposition - Continue inpatient care, Patient needs KRUPA before discharge. History Interval history: 67-year-old female was presented to the emergency department complaining of fever and neck pain. SIRS evidenced by fever and tachycardia; resolved Bacteremia withe GBSC; infectious disease doctor consulted Hospitalist Physical - Constitutional Vitals: Temp Pulse Resp BP Pulse Ox 97.4 F L 61 20 125/62 97 03/07/18 07:13 03/07/18 07:13 03/07/18 08:52 03/07/18 07:13 03/07/18 08:52 General appearance: Present: no acute distress - EENT Eyes: Present: PERRL, EOM intact ENT: hearing intact, clear oral mucosa, dentition normal - Neck Neck: Present: supple, normal ROM - Respiratory Respiratory effort: normal Respiratory: bilateral: CTA - Cardiovascular Rhythm: regular Heart Sounds: Present: S1 & S2. Absent: gallop, rub - Extremities Extremities: no ischemia, No edema, Full ROM - Abdominal General gastrointestinal: soft, non-tender, non-distended, normal bowel sounds - Integumentary Integumentary: Present: clear, warm, dry - Neurologic Neurologic: CNII-XII intact, moves all extremities Results - Labs CBC & Chem 7: 03/06/18 04:17 03/07/18 05:11 Labs: Laboratory Last Values WBC 7.1 K/mm3 (4.5-11.0) 03/06/18 04:17 RBC 2.72 M/mm3 (3.65-5.03) L 03/06/18 04:17 Hgb 8.5 gm/dl (10.1-14.3) L 03/06/18 04:17 Hct 25.9 % (30.3-42.9) L 03/06/18 04:17 MCV 95 fl (79-97) 03/06/18 04:17 MCH 31 pg (28-32) 03/06/18 04:17 MCHC 33 % (30-34) 03/06/18 04:17 RDW 14.8 % (13.2-15.2) 03/06/18 04:17 Plt Count 259 K/mm3 (140-440) 03/06/18 04:17 Lymph % (Auto) [place] 03/06/18 04:17 Lymph # [place] 03/06/18 04:17 Add Manual Diff Complete 03/06/18 04:17 Total Counted 100 03/06/18 04:17 Seg Neutrophils % [place] 03/06/18 04:17 Seg Neuts % (Manual) 35.0 % (40.0-70.0) L 03/06/18 04:17 Band Neutrophils % 1.0 % 03/06/18 04:17 Lymphocytes % (Manual) 64.0 % (13.4-35.0) H 03/06/18 04:17 Reactive Lymphs % (Man) 0 % 03/06/18 04:17 Monocytes % (Manual) 0 % (0.0-7.3) 03/06/18 04:17 Eosinophils % (Manual) 0 % (0.0-4.3) 03/06/18 04:17 Basophils % (Manual) 0 % (0.0-1.8) 03/06/18 04:17 Metamyelocytes % 0 % 03/06/18 04:17 Myelocytes % 0 % 03/06/18 04:17 Promyelocytes % 0 % 03/06/18 04:17 Blast Cells % 0 % 03/06/18 04:17 Nucleated RBC % Not Reportable 03/06/18 04:17 Seg Neutrophils # Man 2.5 K/mm3 (1.8-7.7) 03/06/18 04:17 Band Neutrophils # 0.1 K/mm3 03/06/18 04:17 Lymphocytes # (Manual) 4.5 K/mm3 (1.2-5.4) 03/06/18 04:17 Abs React Lymphs (Man) 0.0 K/mm3 03/06/18 04:17 Monocytes # (Manual) 0.0 K/mm3 (0.0-0.8) 03/06/18 04:17 Eosinophils # (Manual) 0.0 K/mm3 (0.0-0.4) 03/06/18 04:17 Basophils # (Manual) 0.0 K/mm3 (0.0-0.1) 03/06/18 04:17 Metamyelocytes # 0.0 K/mm3 03/06/18 04:17 Myelocytes # 0.0 K/mm3 03/06/18 04:17 Promyelocytes # 0.0 K/mm3 03/06/18 04:17 Blast Cells # 0.0 K/mm3 03/06/18 04:17 Pathologist Review 03/02/18 04:04 WBC Morphology Not Reportable 03/06/18 04:17 Hypersegmented Neuts Not Reportable 03/06/18 04:17 Hyposegmented Neuts Not Reportable 03/06/18 04:17 Hypogranular Neuts Not Reportable 03/06/18 04:17 Smudge Cells Not Reportable 03/06/18 04:17 Toxic Granulation Not Reportable 03/06/18 04:17 Toxic Vacuolation Not Reportable 03/06/18 04:17 Dohle Bodies Not Reportable 03/06/18 04:17 Pelger-Huet Anomaly Not Reportable 03/06/18 04:17 Mina Rods Not Reportable 03/06/18 04:17 Platelet Estimate Consistent w auto 03/06/18 04:17 Clumped Platelets Not Reportable 03/06/18 04:17 Plt Clumps, EDTA Not Reportable 03/06/18 04:17 Large Platelets Not Reportable 03/06/18 04:17 Giant Platelets Not Reportable 03/06/18 04:17 Platelet Satelliting Not Reportable 03/06/18 04:17 Plt Morphology Comment Not Reportable 03/06/18 04:17 RBC Morphology Not Reportable 03/06/18 04:17 Dimorphic RBCs Not Reportable 03/06/18 04:17 Polychromasia Not Reportable 03/06/18 04:17 Hypochromasia 1+ 03/06/18 04:17 Poikilocytosis Not Reportable 03/06/18 04:17 Anisocytosis 1+ 03/06/18 04:17 Microcytosis Not Reportable 03/06/18 04:17 Macrocytosis Not Reportable 03/06/18 04:17 Spherocytes Not Reportable 03/06/18 04:17 Pappenheimer Bodies Not Reportable 03/06/18 04:17 Sickle Cells Not Reportable 03/06/18 04:17 Target Cells Not Reportable 03/06/18 04:17 Tear Drop Cells Not Reportable 03/06/18 04:17 Ovalocytes Not Reportable 03/06/18 04:17 Helmet Cells Not Reportable 03/06/18 04:17 Pati[place] Bodies Not Reportable 03/06/18 04:17 [place] Rings Not Reportable 03/06/18 04:17 [place] Cells Not Reportable 03/06/18 04:17 Bite Cells Not Reportable 03/06/18 04:17 Crenated Cell Not Reportable 03/06/18 04:17 Elliptocytes Not Reportable 03/06/18 04:17 Acanthocytes (Spur) Not Reportable 03/06/18 04:17 Rouleaux Not Reportable 03/06/18 04:17 Hemoglobin C Crystals Not Reportable 03/06/18 04:17 Schistocytes Not Reportable 03/06/18 04:17 Malaria parasites Not Reportable 03/06/18 04:17 ESR 78 mm/Hr (0-20) 03/03/18 05:20 [place] Bodies Not Reportable 03/06/18 04:17 Hem Pathologist Commnt No 03/06/18 04:17 Sodium 140 mmol/L (137-145) 03/07/18 05:11 Potassium 4.2 mmol/L (3.6-5.0) 03/07/18 05:11 Chloride 105.7 mmol/L (98-107) 03/07/18 05:11 Carbon Dioxide 20 mmol/L (22-30) L 03/07/18 05:11 Anion Gap 19 mmol/L 03/07/18 05:11 BUN 15 mg/dL (7-17) 03/07/18 05:11 Creatinine 1.2 mg/dL (0.7-1.2) 03/07/18 05:11 Estimated GFR 54 ml/min 03/07/18 05:11 BUN/Creatinine Ratio 13 % 03/07/18 05:11 Glucose 131 mg/dL (65-100) H 03/07/18 05:11 POC Glucose 94 (70-105) 03/07/18 07:23 Hemoglobin A1c 6.4 % (4-6) H 03/02/18 00:31 Lactic Acid 0.50 mmol/L (0.7-2.0) L 03/01/18 12:55 Calcium 8.7 mg/dL (8.4-10.2) 03/07/18 05:11 Total Bilirubin 0.60 mg/dL (0.1-1.2) 03/02/18 04:04 AST 11 units/L (5-40) 03/02/18 04:04 ALT 7 units/L (7-56) 03/02/18 04:04 Alkaline Phosphatase 73 units/L (35-129) 03/02/18 04:04 Lactate Dehydrogenase 141 units/L (91-180) 03/03/18 05:20 Total Creatine Kinase 38 units/L (30-135) 03/01/18 12:55 Total Protein 6.3 g/dL (6.3-8.2) 03/02/18 04:04 Albumin 3.8 g/dL (3.9-5) L 03/02/18 04:04 Albumin/Globulin Ratio 1.5 % 03/02/18 04:04 Yemy-1-[id number] 7.46 mg/L (<=2.51) H 03/03/18 05:20 Urine Color Yellow (Yellow) 03/01/18 Unknown Urine Turbidity Clear (Clear) 03/01/18 Unknown Urine pH 5.0 (5.0-7.0) 03/01/18 Unknown Ur Specific [place] 1.016 (1.003-1.030) 03/01/18 Unknown Urine Protein 30 mg/dl mg/dL (Negative) 03/01/18 Unknown Urine Glucose (UA) Neg mg/dL (Negative) 03/01/18 Unknown Urine Ketones Neg mg/dL (Negative) 03/01/18 Unknown Urine Blood Neg (Negative) 03/01/18 Unknown Urine Nitrite Neg (Negative) 03/01/18 Unknown Urine Bilirubin Neg (Negative) 03/01/18 Unknown Urine Urobilinogen < 2.0 mg/dL (<2.0) 03/01/18 Unknown Ur Leukocyte Esterase Neg (Negative) 03/01/18 Unknown Urine WBC (Auto) 2.0 /HPF (0.0-6.0) 03/01/18 Unknown Urine RBC (Auto) 6.0 /HPF (0.0-6.0) 03/01/18 Unknown U Epithel Cells (Auto) 2.0 /HPF (0-13.0) 03/01/18 Unknown Urine Bacteria (Auto) 1+ /HPF (Negative) 03/01/18 Unknown Urine Mucus Few /HPF 03/01/18 Unknown CSF Appearance Clear 03/01/18 17:45 CSF Color Colorless 03/01/18 17:45 CSF WBC 1 /mm3 (1-10) 03/01/18 17:45 CSF RBC 0 /mm3 (0-0) 03/01/18 17:45 CSF Seg Neutrophils 0 % (0-6) 03/01/18 17:45 CSF Lymphocytes % 0 % (40-80) 03/01/18 17:45 CSF Reactive Lymphs 0 % 03/01/18 17:45 CSF Monocytes % 0 % (15-45) 03/01/18 17:45 CSF Eosinophils % 0 % 03/01/18 17:45 CSF Basophils 0 % 03/01/18 17:45 CSF Comment No cells seen 03/01/18 17:45 CSF Pathologist Review C 03/01/18 17:45 CSF Glucose 91 mg/dL 03/01/18 17:45 CSF Total Protein 33 mg/dL 03/01/18 17:45
[2018-03-07] MEDS: AMARYL PO SCH (09:52)
[2018-03-07] MEDS: TYLENOL PO PRN ×2 (10:48→21:03)
[2018-03-07] MEDS: COREG PO SCH ×2 (10:50→21:04)
[2018-03-07] MEDS: LOVENOX SUB-Q SCH (10:50)
[2018-03-07] MEDS: COZAAR PO SCH (10:50)
[2018-03-07] MEDS: NORVASC PO SCH (10:51)
[2018-03-07] MEDS: PLAVIX PO SCH (10:51)
[2018-03-07] MEDS: SODIUM CHLORIDE FLUSH SYRINGE 10 ML IV SCH ×2 (10:53→21:05)
--- NOTE | 2018-03-07 11:00 | Progress Note ---
Assessment and Plan Strep group B bacteremia Cervical lymphadenopathy, bilateral Anemia Hypertension Diabetes Echocardiogram reports a possible aortic valve vegetation. There is a normal left ventricular systolic function, ejection fraction 50-55%. Plan: KRUPA is planned for Tuesday, for optimal visualization of aortic valve calcification. Subjective Date of service: 03/07/18 Principal diagnosis: Fever Interval history: Patient has no cardiac complaints. Objective Vital Signs Temp Pulse Pulse Resp BP Pulse Ox 03/07/18 10:51 61 125/62 03/07/18 10:50 61 125/62 03/07/18 10:48 20 03/07/18 08:52 20 97 03/07/18 07:13 97.4 F L 61 18 125/62 98 03/07/18 02:54 75 18 127/66 99 03/06/18 22:00 70 18 98 03/06/18 21:13 70 138/73 03/06/18 19:31 98.7 F 70 18 138/73 98 03/06/18 13:48 97.9 F 73 18 123/63 99 - Physical Examination General: No Apparent Distress HEENT: Positive: PERRL Cardiac: Positive: Reg Rate and Rhythm Neuro: Positive: Grossly Intact Extremities: Absent: edema - Labs and Meds Comprehensive Metabolic Panel 03/07/18 Range/Units 05:11 Sodium 140 (137-145) mmol/L Potassium 4.2 (3.6-5.0) mmol/L Chloride 105.7 (98-107) mmol/L Carbon Dioxide 20 L (22-30) mmol/L BUN 15 (7-17) mg/dL Creatinine 1.2 (0.7-1.2) mg/dL Glucose 131 H (65-100) mg/dL Calcium 8.7 (8.4-10.2) mg/dL
--- NOTE | 2018-03-07 11:18 | Progress Note ---
Assessment and Plan Assessment: 1) Fever: Present on admission. Etiology most likely Strep bacteremia +/- malignancy. Resolved fever 2) Strep group B bacteremia: likely real, ? Infective endocarditis. TTE with possible AV vegetation. UA neg. 3) Massive generalized lymphadenompathy: ? lymphoma ? malignancy. -CT chest showed extensive bilateral intrathoracic and axillary LNs. -CT abd showed massive retroperitoneal, mesenteric, portal, celiac and carey iliac LNs. -CT cervical carey cervical LNs. -s/p L axillary LN biopsy 03/03. 4) Severe neck pain: from LNs? CT head enlarged pituitary gland. Underwent LP CSF demonstrated 1 WBC, normal glucose and protein. CT cervical bilateral extensive cervical LNs 5) Hypertension 6) Diabetes Plan: -Will f/u blood cultures. -Continue cefazolin. Final regimen and duration of antibiotics pending KRUPA. If KRUPA +vegetation will need 4 weeks. -Will f/u LN biopsy. -Hopefully KRUPA tomorrow. -Will f/u CMV and EBV. -d/w pt, RN. Marianna Galan MD ID attending [phone]. Subjective Date of service: 03/07/18 Principal diagnosis: Fever Interval history: Afebrile. Neck pain is unchanged, very severe. Had a very small BM yesterday. Microbiology: Blood cultures: 03/01 Beta hem Strep group B 2 of 4 bottles. 03/02 NGTD. CSF Cx 03/01 Neg. Current Antimicrobials: Cefazolin 03/03- Prior antimicrobials Ceftriaxone 03/01-03/03 Objective - Exam Narrative Exam: General appearance: Alert, in pain, conversant Eyes: anicteric sclerae, moist conjunctivae; PERRLA HENT: Atraumatic; oropharynx clear with moist mucous membranes and no mucosal ulcerations/no oral thrush; normal hard and soft palate. Normal external ears. Neck: Decreased ROM due to pain. Lungs: CTA, with normal respiratory effort and no intercostal retractions CV: S1,S2. Abdomen: +BS. Soft, distended. Extremities: No peripheral edema. Skin: Normal temperature, turgor and texture; no rash, ulcers or subcutaneous nodules Psych: Appropriate affect, alert and oriented to person, place and time. Neuro: alert and oriented x 3. Grossly non-focal. - Constitutional Vitals: Vital Signs Temp Pulse Resp BP Pulse Ox 97.4 F L 61 20 125/62 97 08/07/18 07:13 03/07/18 10:51 03/07/18 10:48 03/07/18 10:51 03/07/18 08:52 Temperature -Last 24 Hours Temperature 97.4 F Temperature 98.7 F Temperature 97.9 F - Labs CBC & Chem 7: 03/06/18 04:17 03/07/18 05:11 Labs: Abnormal lab results 03/06/18 03/06/18 03/07/18 Range/Units 16:48 21:49 05:11 Carbon Dioxide 20 L (22-30) mmol/L Glucose 131 H (65-100) mg/dL POC Glucose 145 H 138 H (70-105)
[2018-03-07] MEDS: MIRALAX 3350 PO PRN (11:36)
--- NOTE | 2018-03-07 19:27 | Progress Note ---
Assessment and Plan - Patient Problems (1) Back pain Current Visit: Yes Status: Acute Qualifiers: Back pain location: thoracic back pain Chronicity: unspecified Back pain laterality: unspecified Qualified Code(s): M54.6 - Pain in thoracic spine Plan to address problem: Pain control. (2) QUIRINO (acute kidney injury) Current Visit: Yes Status: Acute Plan to address problem: corrective measures. (3) Neck pain Current Visit: Yes Status: Acute Plan to address problem: See notes. Awaiting bx report. Subjective Date of service: 03/07/18 Principal diagnosis: Fever Interval history: Patient seen, resting in bed, records reviewed, s/p LN bx , awaiting path report. Continue with cerrent management until path report out. Ct of abd/ pelvic reviewed, with multiple Ln, probably related to the same LN in the axilla /chest/cervical.Once her renal numbers improve, will benefit from contrast CT. Patient seen, resting in bed, still complains of MSK pain, LN bx completed, I am unable to view the path report.Will speak with pathology people tomorrow. patient seen, resting in bed, still complaining of pain, no path report yet. Objective - Constitutional Vitals: Vital Signs - 12hr 03/07/18 03/07/18 03/07/18 08:52 10:48 10:50 Temperature Pulse Rate 61 Respiratory 20 20 Rate Blood Pressure 125/62 O2 Sat by Pulse 97 Oximetry 03/07/18 03/07/18 10:51 15:00 Temperature 98.0 F Pulse Rate 61 71 Respiratory 16 Rate Blood Pressure 125/62 130/68 O2 Sat by Pulse 98 Oximetry General appearance: Present: mild distress - EENT Eyes: PERRL, EOM intact ENT: hearing intact, clear oral mucosa Ears: bilateral: normal - Neck Neck: supple, normal ROM - Respiratory Respiratory effort: normal Respiratory: bilateral: CTA - Breasts Breasts: deferred - Cardiovascular Rhythm: regular Heart Sounds: Present: S1 & S2. Absent: gallop, rub Extremities: pulses intact, No edema, normal color, Full ROM - Gastrointestinal General gastrointestinal: Present: soft, non-tender, non-distended, normal bowel sounds Rectal Exam: deferred - Genitourinary Female genitourinary: deferred - Integumentary Integumentary: clear, warm, dry - Musculoskeletal Musculoskeletal: 1, strength equal bilaterally - Neurologic Neurologic: moves all extremities - Psychiatric Psychiatric: memory intact, appropriate mood/affect, intact judgment & insight - Labs CBC & Chem 7: 03/06/18 04:17 03/07/18 05:11 Labs: Abnormal lab results 03/06/18 03/06/18 03/06/18 Range/Units 04:17 04:17 21:49 Carbon Dioxide (22-30) mmol/L Glucose (65-100) mg/dL POC Glucose 138 H (70-105) EBV Capsid Ag IgG Titer >750.00 H (<18.00) U/mL EBV Nuclear Ag IgG Indx 22.20 H (<18.00) U/mL 03/07/18 03/07/18 03/07/18 Range/Units 05:11 16:49 17:27 Carbon Dioxide 20 L (22-30) mmol/L Glucose 131 H (65-100) mg/dL POC Glucose 59 L 67 L (70-105) EBV Capsid Ag IgG Titer (<18.00) U/mL EBV Nuclear Ag IgG Indx (<18.00) U/mL
[2018-03-07] MEDS: CEPHULAC PO SCH (21:02)
[2018-03-07] MEDS: PRAVACHOL PO SCH (21:03)
[2018-03-08] MEDS: MORPHINE IV PRN ×2 (00:37→05:37)
[2018-03-08] MEDS: ceFAZolin 2 GM in NACL 0.9% 100 ML IV SCH ×3 (06:08→23:05)
[2018-03-08] MEDS ORDERED: D50W (25GM) Syringe IV ONE (07:46)
--- NOTE | 2018-03-08 07:46 | Anesthesia Consultation ---
Anesthesia Consult and Med Hx Date of service: 03/08/18 - Airway Anesthetic Teeth Evaluation: Dentures (upper) ROM Head & Neck: Inadequate Mental/Hyoid Distance: Adequate Mallampati Class: Class II Intubation Access Assessment: Possibly Difficult - Pulmonary Exam CTA: Yes - Cardiac Exam Cardiac Exam: RRR - Pre-Operative Health Status ASA Pre-Surgery Classification: ASA3 Proposed Anesthetic Plan: MAC - Pre-Anesthesia Comment Pre-Anesthesia Comments: Admitted with severe neck pain and fever. Positive group B strep bacteremia. EF 50-55%. - Cardiovascular System Hx Hypertension: Yes - Central Nervous System Hx Back Pain: Yes (cervical lymphadenopathy ) - Endocrine Hx Renal Disease: Yes (CKD) Hx Non-Insulin Dependent Diabetes: Yes - Hematic Hx Anemia: Yes
[2018-03-08] MEDS ORDERED: VERSED ONE (07:57)
[2018-03-08] MEDS ORDERED: XYLOCAINE MPF 2% ONE (07:57)
[2018-03-08] MEDS ORDERED: DIPRIVAN 10 MG/ML IV ONE ×2 (07:58)
[2018-03-08] MEDS ORDERED: HURRICAINE ONE 20% TOPICAL SPRAY MM NR (08:00)
[2018-03-08] MEDS ORDERED: D50W (25GM) Vial IV ONE (08:00)
[2018-03-08] MEDS ORDERED: KETALAR ONE (08:00)
[2018-03-08] MEDS: AMARYL PO SCH (08:01)
[2018-03-08] MEDS: FLEXERIL PO SCH ×3 (08:03→20:10)
[2018-03-08] MEDS ORDERED: NACL 0.9% 1000 ML 0 ML ONE (08:08)
--- NOTE | 2018-03-08 09:55 | Progress Note ---
Assessment and Plan Strep group B bacteremia Cervical lymphadenopathy, bilateral Anemia Hypertension Diabetes Echocardiogram reports a possible aortic valve vegetation. There is a normal left ventricular systolic function, ejection fraction 50-55%. 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 Alternatively if KRUPA is definitely need, a GI evaluation for upper EGD is warranted first before a re-attempt Subjective Date of service: 03/08/18 Principal diagnosis: Fever Interval history: KRUPA attempted today however could not pass probe despite multiple attempts Objective Vital Signs Temp Temp Temp Pulse Pulse Pulse Pulse 03/08/18 09:33 97.8 F 76 03/08/18 09:00 75 03/08/18 08:45 76 03/08/18 08:30 98.0 F 84 03/08/18 08:21 97.8 F 74 03/08/18 03:39 97.7 F 74 03/07/18 22:00 86 03/07/18 19:48 97.9 F 86 03/07/18 15:00 98.0 F 71 03/07/18 10:51 61 03/07/18 10:50 61 03/07/18 10:48 Resp Resp Resp BP BP BP BP 03/08/18 09:33 18 167/85 03/08/18 09:00 18 155/84 03/08/18 08:45 18 151/83 03/08/18 08:30 20 190/95 03/08/18 08:21 18 172/80 03/08/18 03:39 20 96/63 03/07/18 22:00 20 03/07/18 19:48 20 144/67 03/07/18 15:00 16 130/68 03/07/18 10:51 125/62 03/07/18 10:50 125/62 03/07/18 10:48 20 Pulse Ox Pulse Ox Pulse Ox 03/08/18 09:33 97 03/08/18 09:00 100 03/08/18 08:45 100 03/08/18 08:30 99 03/08/18 08:21 100 03/08/18 03:39 99 03/07/18 22:00 98 03/07/18 19:48 98 03/07/18 15:00 98 03/07/18 10:51 03/07/18 10:50 03/07/18 10:48 - Physical Examination General: No Apparent Distress HEENT: Positive: PERRL Neck: Positive: neck supple Cardiac: Positive: Reg Rate and Rhythm Lungs: Positive: Normal Exam Neuro: Positive: Grossly Intact Extremities: Absent: edema
--- NOTE | 2018-03-08 10:48 | Progress Note ---
Assessment and Plan Assessment and plan: Neck pain; likely from the LAD, symptomatic management. - CSF is negative for meningitis Sepsis evidenced by fever and tachycardia and diagnosis of bacteremia. Continue IV antibiotics. Strep group B Bacteremia;Blood cultures positive for group B streptococcus Infectious disease following, currently on IV cefazolin, ID recommended 2 weeks of IV antibiotic may be longer if it is infective endocarditis, patient needs outpatient IV antibiotic arrangement once KRUPA done. 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 Chronic kidney disease: Improving. Follow-up BMP Lymphoma; hematology/oncology consulted, ordered some tests and recommend outpatient follow-up in his office, lymph node biopsy was taken - pain control -CT chest showed extensive bilateral intrathoracic and axillary LNs. -CT abd showed massive retroperitoneal, mesenteric, portal, celiac and carey iliac LNs. -CT cervical carey cervical LNs. Hypertension. Continue antihypertensive medications. Diabetes mellitus type 2. Continue tight glycemic control. DVT prophylaxis - On heparin Disposition - Continue inpatient care, home IV antibiotics versus LTAC. History Interval history: 67-year-old female was presented to the emergency department complaining of fever and neck pain. SIRS evidenced by fever and tachycardia; resolved Bacteremia with GBSC; infectious disease doctor consulted and recommends 4 weeks of antibiotics. KRUPA with presumed aortic valve vegetation. Hospitalist Physical - Constitutional Vitals: Temp Pulse Resp BP Pulse Ox 97.8 F 76 18 167/85 97 03/08/18 09:33 03/08/18 09:33 03/08/18 09:33 03/08/18 09:33 03/08/18 09:33 General appearance: Present: no acute distress - EENT Eyes: Present: PERRL, EOM intact ENT: hearing intact, clear oral mucosa, dentition normal - Neck Neck: Present: supple, normal ROM - Respiratory Respiratory effort: normal Respiratory: bilateral: CTA - Cardiovascular Rhythm: regular Heart Sounds: Present: S1 & S2. Absent: gallop, rub - Extremities Extremities: no ischemia, No edema, Full ROM - Abdominal General gastrointestinal: soft, non-tender, non-distended, normal bowel sounds - Integumentary Integumentary: Present: clear, warm, dry - Neurologic Neurologic: CNII-XII intact, moves all extremities Results - Labs CBC & Chem 7: 03/06/18 04:17 03/07/18 05:11 Labs: Laboratory Last Values WBC 7.1 K/mm3 (4.5-11.0) 03/06/18 04:17 RBC 2.72 M/mm3 (3.65-5.03) L 03/06/18 04:17 Hgb 8.5 gm/dl (10.1-14.3) L 03/06/18 04:17 Hct 25.9 % (30.3-42.9) L 03/06/18 04:17 MCV 95 fl (79-97) 03/06/18 04:17 MCH 31 pg (28-32) 03/06/18 04:17 MCHC 33 % (30-34) 03/06/18 04:17 RDW 14.8 % (13.2-15.2) 03/06/18 04:17 Plt Count 259 K/mm3 (140-440) 03/06/18 04:17 Lymph % (Auto) Business Office Technician 03/06/18 04:17 Lymph # Business Office Technician 03/06/18 04:17 Add Manual Diff Complete 03/06/18 04:17 Total Counted 100 03/06/18 04:17 Seg Neutrophils % Business Office Technician 03/06/18 04:17 Seg Neuts % (Manual) 35.0 % (40.0-70.0) L 03/06/18 04:17 Band Neutrophils % 1.0 % 03/06/18 04:17 Lymphocytes % (Manual) 64.0 % (13.4-35.0) H 03/06/18 04:17 Reactive Lymphs % (Man) 0 % 03/06/18 04:17 Monocytes % (Manual) 0 % (0.0-7.3) 03/06/18 04:17 Eosinophils % (Manual) 0 % (0.0-4.3) 03/06/18 04:17 Basophils % (Manual) 0 % (0.0-1.8) 03/06/18 04:17 Metamyelocytes % 0 % 03/06/18 04:17 Myelocytes % 0 % 03/06/18 04:17 Promyelocytes % 0 % 03/06/18 04:17 Blast Cells % 0 % 03/06/18 04:17 Nucleated RBC % Not Reportable 03/06/18 04:17 Seg Neutrophils # Man 2.5 K/mm3 (1.8-7.7) 03/06/18 04:17 Band Neutrophils # 0.1 K/mm3 03/06/18 04:17 Lymphocytes # (Manual) 4.5 K/mm3 (1.2-5.4) 03/06/18 04:17 Abs React Lymphs (Man) 0.0 K/mm3 03/06/18 04:17 Monocytes # (Manual) 0.0 K/mm3 (0.0-0.8) 03/06/18 04:17 Eosinophils # (Manual) 0.0 K/mm3 (0.0-0.4) 03/06/18 04:17 Basophils # (Manual) 0.0 K/mm3 (0.0-0.1) 03/06/18 04:17 Metamyelocytes # 0.0 K/mm3 03/06/18 04:17 Myelocytes # 0.0 K/mm3 03/06/18 04:17 Promyelocytes # 0.0 K/mm3 03/06/18 04:17 Blast Cells # 0.0 K/mm3 03/06/18 04:17 Pathologist Review 03/02/18 04:04 WBC Morphology Not Reportable 03/06/18 04:17 Hypersegmented Neuts Not Reportable 03/06/18 04:17 Hyposegmented Neuts Not Reportable 03/06/18 04:17 Hypogranular Neuts Not Reportable 03/06/18 04:17 Smudge Cells Not Reportable 03/06/18 04:17 Toxic Granulation Not Reportable 03/06/18 04:17 Toxic Vacuolation Not Reportable 03/06/18 04:17 Dohle Bodies Not Reportable 03/06/18 04:17 Pelger-Huet Anomaly Not Reportable 03/06/18 04:17 Mina Rods Not Reportable 03/06/18 04:17 Platelet Estimate Consistent w auto 03/06/18 04:17 Clumped Platelets Not Reportable 03/06/18 04:17 Plt Clumps, EDTA Not Reportable 03/06/18 04:17 Large Platelets Not Reportable 03/06/18 04:17 Giant Platelets Not Reportable 03/06/18 04:17 Platelet Satelliting Not Reportable 03/06/18 04:17 Plt Morphology Comment Not Reportable 03/06/18 04:17 RBC Morphology Not Reportable 03/06/18 04:17 Dimorphic RBCs Not Reportable 03/06/18 04:17 Polychromasia Not Reportable 03/06/18 04:17 Hypochromasia 1+ 03/06/18 04:17 Poikilocytosis Not Reportable 03/06/18 04:17 Anisocytosis 1+ 03/06/18 04:17 Microcytosis Not Reportable 03/06/18 04:17 Macrocytosis Not Reportable 03/06/18 04:17 Spherocytes Not Reportable 03/06/18 04:17 Pappenheimer Bodies Not Reportable 03/06/18 04:17 Sickle Cells Not Reportable 03/06/18 04:17 Target Cells Not Reportable 03/06/18 04:17 Tear Drop Cells Not Reportable 03/06/18 04:17 Ovalocytes Not Reportable 03/06/18 04:17 Helmet Cells Not Reportable 03/06/18 04:17 [place] Bodies Not Reportable 03/06/18 04:17 [place] Rings Not Reportable 03/06/18 04:17 [place] Cells Not Reportable 03/06/18 04:17 Bite Cells Not Reportable 03/06/18 04:17 Crenated Cell Not Reportable 03/06/18 04:17 Elliptocytes Not Reportable 03/06/18 04:17 Acanthocytes (Spur) Not Reportable 03/06/18 04:17 Rouleaux Not Reportable 03/06/18 04:17 Hemoglobin C Crystals Not Reportable 03/06/18 04:17 Schistocytes Not Reportable 03/06/18 04:17 Malaria parasites Not Reportable 03/06/18 04:17 ESR 78 mm/Hr (0-20) 03/03/18 05:20 [place] Bodies Not Reportable 03/06/18 04:17 Hem Pathologist Commnt No 03/06/18 04:17 Sodium 140 mmol/L (137-145) 03/07/18 05:11 Potassium 4.2 mmol/L (3.6-5.0) 03/07/18 05:11 Chloride 105.7 mmol/L (98-107) 03/07/18 05:11 Carbon Dioxide 20 mmol/L (22-30) L 03/07/18 05:11 Anion Gap 19 mmol/L 03/07/18 05:11 BUN 15 mg/dL (7-17) 03/07/18 05:11 Creatinine 1.2 mg/dL (0.7-1.2) 03/07/18 05:11 Estimated GFR 54 ml/min 03/07/18 05:11 BUN/Creatinine Ratio 13 % 03/07/18 05:11 Glucose 131 mg/dL (65-100) H 03/07/18 05:11 POC Glucose 88 (70-105) 03/08/18 08:33 Hemoglobin A1c 6.4 % (4-6) H 03/02/18 00:31 Lactic Acid 0.50 mmol/L (0.7-2.0) L 03/01/18 12:55 Calcium 8.7 mg/dL (8.4-10.2) 03/07/18 05:11 Total Bilirubin 0.60 mg/dL (0.1-1.2) 03/02/18 04:04 AST 11 units/L (5-40) 03/02/18 04:04 ALT 7 units/L (7-56) 03/02/18 04:04 Alkaline Phosphatase 73 units/L (35-129) 03/02/18 04:04 Lactate Dehydrogenase 141 units/L (91-180) 03/03/18 05:20 Total Creatine Kinase 38 units/L (30-135) 03/01/18 12:55 Total Protein 6.3 g/dL (6.3-8.2) 03/02/18 04:04 Albumin 3.8 g/dL (3.9-5) L 03/02/18 04:04 Albumin/Globulin Ratio 1.5 % 03/02/18 04:04 Lhso-1-Jrolsgbzilemw 7.46 mg/L (<=2.51) H 03/03/18 05:20 Urine Color Yellow (Yellow) 03/01/18 Unknown Urine Turbidity Clear (Clear) 03/01/18 Unknown Urine pH 5.0 (5.0-7.0) 03/01/18 Unknown Ur Specific Petty 1.016 (1.003-1.030) 03/01/18 Unknown Urine Protein 30 mg/dl mg/dL (Negative) 03/01/18 Unknown Urine Glucose (UA) Neg mg/dL (Negative) 03/01/18 Unknown Urine Ketones Neg mg/dL (Negative) 03/01/18 Unknown Urine Blood Neg (Negative) 03/01/18 Unknown Urine Nitrite Neg (Negative) 03/01/18 Unknown Urine Bilirubin Neg (Negative) 03/01/18 Unknown Urine Urobilinogen < 2.0 mg/dL (<2.0) 03/01/18 Unknown Ur Leukocyte Esterase Neg (Negative) 03/01/18 Unknown Urine WBC (Auto) 2.0 /HPF (0.0-6.0) 03/01/18 Unknown Urine RBC (Auto) 6.0 /HPF (0.0-6.0) 03/01/18 Unknown U Epithel Cells (Auto) 2.0 /HPF (0-13.0) 03/01/18 Unknown Urine Bacteria (Auto) 1+ /HPF (Negative) 03/01/18 Unknown Urine Mucus Few /HPF 03/01/18 Unknown CSF Appearance Clear 03/01/18 17:45 CSF Color Colorless 03/01/18 17:45 CSF WBC 1 /mm3 (1-10) 03/01/18 17:45 CSF RBC 0 /mm3 (0-0) 03/01/18 17:45 CSF Seg Neutrophils 0 % (0-6) 03/01/18 17:45 CSF Lymphocytes % 0 % (40-80) 03/01/18 17:45 CSF Reactive Lymphs 0 % 03/01/18 17:45 CSF Monocytes % 0 % (15-45) 03/01/18 17:45 CSF Eosinophils % 0 % 03/01/18 17:45 CSF Basophils 0 % 03/01/18 17:45 CSF Comment No cells seen 03/01/18 17:45 CSF Pathologist Review C 03/01/18 17:45 CSF Glucose 91 mg/dL 03/01/18 17:45 CSF Total Protein 33 mg/dL 03/01/18 17:45 EBV Capsid Ag IgG Titer >750.00 U/mL (<18.00) H 03/06/18 04:17 EBV Nuclear Ag IgG Indx 22.20 U/mL (<18.00) H 03/06/18 04:17
[2018-03-08] MEDS: PLAVIX PO SCH (11:01)
[2018-03-08] MEDS: COREG PO SCH ×2 (11:01→23:07)
[2018-03-08] MEDS: COZAAR PO SCH (11:01)
[2018-03-08] MEDS: NORVASC PO SCH (11:01)
[2018-03-08] MEDS: CEPHULAC PO SCH ×2 (11:02→23:07)
[2018-03-08] MEDS: LOVENOX SUB-Q SCH (11:03)
[2018-03-08] MEDS: SODIUM CHLORIDE FLUSH SYRINGE 10 ML IV SCH ×2 (11:04→23:11)
[2018-03-08] MEDS: NACL 0.9% 1000 ML 1,000 ML IV SCH (12:15)
[2018-03-08] MEDS: PERCOCET 5/325 PO PRN (15:26)
--- NOTE | 2018-03-08 18:24 | Progress Note ---
Assessment and Plan - Patient Problems (1) Back pain Current Visit: Yes Status: Acute Qualifiers: Back pain location: thoracic back pain Chronicity: unspecified Back pain laterality: unspecified Qualified Code(s): M54.6 - Pain in thoracic spine Plan to address problem: Pain control. (2) QUIRINO (acute kidney injury) Current Visit: Yes Status: Acute Plan to address problem: corrective measures. (3) Neck pain Current Visit: Yes Status: Acute Plan to address problem: See notes. Awaiting bx report. Subjective Date of service: 03/08/18 Principal diagnosis: Fever Interval history: Patient seen, resting in bed, records reviewed, s/p LN bx , awaiting path report. Continue with cerrent management until path report out. Ct of abd/ pelvic reviewed, with multiple Ln, probably related to the same LN in the axilla /chest/cervical.Once her renal numbers improve, will benefit from contrast CT. Patient seen, resting in bed, still complains of MSK pain, LN bx completed, I am unable to view the path report.Will speak with pathology people tomorrow. patient seen, resting in bed, still complaining of pain, no path report yet. Patient seen/examined, records reviewed, case d/w patient, she looks much better , pain level down. Still no path report. Objective - Constitutional Vitals: Vital Signs - 12hr 03/08/18 03/08/18 03/08/18 08:21 08:30 08:45 Temperature Temperature [ 98.0 F Post-Procedure] Temperature [ 97.8 F Pre-Procedure] Pulse Rate Pulse Rate [ 84 76 Post-Procedure] Pulse Rate [Pre 74 -Procedure] Respiratory Rate Respiratory 20 18 Rate [Post- Procedure] Respiratory 18 Rate [Pre- Procedure] Blood Pressure 190/95 151/83 [Post-Procedure ] Blood Pressure 172/80 [Pre-Procedure] Blood Pressure [Right] O2 Sat by Pulse Oximetry O2 Sat by Pulse 99 100 Oximetry [Post -Procedure] O2 Sat by Pulse 100 Oximetry [Pre- Procedure] 03/08/18 03/08/18 03/08/18 09:00 09:33 15:26 Temperature 97.8 F Temperature [ Post-Procedure] Temperature [ Pre-Procedure] Pulse Rate 76 Pulse Rate [ 75 Post-Procedure] Pulse Rate [Pre -Procedure] Respiratory 18 18 Rate Respiratory 18 Rate [Post- Procedure] Respiratory Rate [Pre- Procedure] Blood Pressure 155/84 [Post-Procedure ] Blood Pressure [Pre-Procedure] Blood Pressure 167/85 [Right] O2 Sat by Pulse 97 Oximetry O2 Sat by Pulse 100 Oximetry [Post -Procedure] O2 Sat by Pulse Oximetry [Pre- Procedure] 03/08/18 03/08/18 16:26 17:34 Temperature 97.6 F Temperature [ Post-Procedure] Temperature [ Pre-Procedure] Pulse Rate 80 Pulse Rate [ Post-Procedure] Pulse Rate [Pre -Procedure] Respiratory 20 20 Rate Respiratory Rate [Post- Procedure] Respiratory Rate [Pre- Procedure] Blood Pressure [Post-Procedure ] Blood Pressure [Pre-Procedure] Blood Pressure 144/70 [Right] O2 Sat by Pulse 98 Oximetry O2 Sat by Pulse Oximetry [Post -Procedure] O2 Sat by Pulse Oximetry [Pre- Procedure] General appearance: Present: no acute distress - EENT Eyes: PERRL, EOM intact ENT: hearing intact, clear oral mucosa Ears: bilateral: normal - Neck Neck: supple, normal ROM - Respiratory Respiratory effort: normal Respiratory: bilateral: CTA - Breasts Breasts: deferred - Cardiovascular Rhythm: regular Heart Sounds: Present: S1 & S2. Absent: gallop, rub Extremities: pulses intact, No edema, normal color, Full ROM - Gastrointestinal General gastrointestinal: Present: soft, non-tender, non-distended, normal bowel sounds Rectal Exam: deferred - Genitourinary Female genitourinary: deferred - Integumentary Integumentary: clear, warm, dry - Musculoskeletal Musculoskeletal: 1, strength equal bilaterally - Neurologic Neurologic: moves all extremities - Psychiatric Psychiatric: memory intact, appropriate mood/affect, intact judgment & insight - Labs CBC & Chem 7: 03/06/18 04:17 03/07/18 05:11 Labs: Abnormal lab results 03/06/18 03/07/18 03/07/18 Range/Units 04:17 16:49 17:27 POC Glucose 59 L 67 L (70-105) CMV IgG Ab 9.70 H (<0.60) U/mL 03/08/18 03/08/18 Range/Units 07:51 16:52 POC Glucose 54 L 69 L (70-105) CMV IgG Ab (<0.60) U/mL
[2018-03-08] MEDS: PRAVACHOL PO SCH (23:07)
[2018-03-09] MEDS: PERCOCET 5/325 PO PRN (04:20)
[2018-03-09] MEDS: AMARYL PO SCH (07:33)
[2018-03-09] MEDS: FLEXERIL PO SCH ×3 (07:33→20:51)
[2018-03-09] MEDS: ceFAZolin 2 GM in NACL 0.9% 100 ML IV SCH (07:33)
[2018-03-09] MEDS: MORPHINE IV PRN ×2 (07:34→17:31)
[2018-03-09 07:55] LABS: Hematocrit 24.6 % (30.3-42.9); Hemoglobin 7.9 gm/dl (10.1-14.3); Mean Corpuscular HGB Conc 32 % (30-34); Mean Corpuscular Hemoglobin 31 pg (28-32); Mean Corpuscular Volume 95 fl (79-97); Platelet Count 224 K/mm3 (140-440); Red Blood Count 2.58 M/mm3 (3.65-5.03); Red Cell Distribution Width 14.7 % (13.2-15.2)
[2018-03-09 08:13] LABS: Calcium 9.1 mg/dL (8.4-10.2)
--- NOTE | 2018-03-09 08:55 | Progress Note ---
Assessment and Plan Strep group B bacteremia KRUPA attempted but could not pass probe despite multiple trials; procedure aborted Cervical lymphadenopathy, bilateral Anemia Hypertension Diabetes Echocardiogram reports a possible aortic valve vegetation. There is a normal left ventricular systolic function, ejection fraction 50-55%. Conservative cardiac management. Subjective Date of service: 03/09/18 Principal diagnosis: Fever Interval history: Patient has no cardiac complaints. Family member at bedside. Objective Vital Signs Temp Pulse Pulse Resp Resp BP BP 03/09/18 07:22 98.0 F 64 20 140/77 03/09/18 01:16 98.8 F 75 16 150/77 03/08/18 19:11 97.9 F 69 16 129/60 03/08/18 17:34 97.6 F 80 20 03/08/18 16:26 20 03/08/18 15:26 18 03/08/18 09:33 97.8 F 76 18 03/08/18 09:00 75 18 155/84 BP Pulse Ox Pulse Ox 03/09/18 07:22 98 03/09/18 01:16 98 03/08/18 19:11 98 03/08/18 17:34 144/70 98 03/08/18 16:26 03/08/18 15:26 03/08/18 09:33 167/85 97 03/08/18 09:00 100 - Physical Examination General: No Apparent Distress HEENT: Positive: PERRL Neck: Positive: thyromegaly Lungs: Positive: Decreased Breath Sounds Neuro: Positive: Grossly Intact Extremities: Absent: edema - Labs and Meds CBC 03/09/18 Range/Units 07:35 WBC 3.6 L (4.5-11.0) K/mm3 RBC 2.58 L (3.65-5.03) M/mm3 Hgb 7.9 L (10.1-14.3) gm/dl Hct 24.6 L (30.3-42.9) % Plt Count 224 (140-440) K/mm3 Comprehensive Metabolic Panel 03/09/18 Range/Units 07:35 Sodium 141 (137-145) mmol/L Potassium 4.4 (3.6-5.0) mmol/L Chloride 105.4 (98-107) mmol/L Carbon Dioxide 22 (22-30) mmol/L BUN 9 (7-17) mg/dL Creatinine 1.1 (0.7-1.2) mg/dL Glucose 74 (65-100) mg/dL Calcium 9.1 (8.4-10.2) mg/dL
[2018-03-09 09:45] LABS: Basophils % (Manual) 0 % (0.0-1.8); Total Cells Counted 100
[2018-03-09 09:46] LABS: Anisocytosis 1+; Platelet Estimate Cons
[2018-03-09] MEDS: LOVENOX SUB-Q SCH (09:57)
[2018-03-09] MEDS: COREG PO SCH ×2 (09:57→22:50)
[2018-03-09] MEDS: PLAVIX PO SCH (09:58)
[2018-03-09] MEDS: NORVASC PO SCH (09:58)
[2018-03-09] MEDS: CEPHULAC PO SCH ×2 (09:58→22:48)
[2018-03-09] MEDS: SODIUM CHLORIDE FLUSH SYRINGE 10 ML IV SCH ×2 (09:59→22:50)
--- NOTE | 2018-03-09 10:13 | Progress Note ---
Assessment and Plan Assessment: 1) Fever: Present on admission. Etiology most likely Strep bacteremia +/- malignancy. Resolved fever 2) Strep group B bacteremia: likely real, ? Infective endocarditis. TTE with possible AV vegetation. UA neg. Unable to tolerate KRUPA. 3) Massive generalized lymphadenompathy: ? lymphoma ? malignancy. -CT chest showed extensive bilateral intrathoracic and axillary LNs. -CT abd showed massive retroperitoneal, mesenteric, portal, celiac and carey iliac LNs. -CT cervical carey cervical LNs. -s/p L axillary LN biopsy 03/03. 4) Severe neck pain: from LNs? CT head enlarged pituitary gland. Underwent LP CSF demonstrated 1 WBC, normal glucose and protein. CT cervical bilateral extensive cervical LNs 5) Hypertension 6) Diabetes 7) Acute Leukopenia. ?antibiotic related. Plan: -Couldn't tolerate KRUPA, therefore couldn't r/o IE - will treat for 4 weeks, with Ceftriaxone 2 g IV q24h through 03/30/18. -Stop cefazolin. -Check CBC in AM. -Will f/u LN biopsy. -Ok to place PICC. -d/w pt, RN. Marianna Galan MD ID attending [phone]. Subjective Date of service: 03/09/18 Principal diagnosis: Fever Interval history: Unable to tolerate KRUPA yesterday. Still constipated and with neck pain. Microbiology: Blood cultures: 03/01 Beta hem Strep group B 2 of 4 bottles. 03/02 Neg CSF Cx 03/01 Neg. Current Antimicrobials: Cefazolin 03/03- Prior antimicrobials Ceftriaxone 03/01-03/03 Objective - Exam Narrative Exam: General appearance: Alert, in pain, conversant Eyes: anicteric sclerae, moist conjunctivae; PERRLA HENT: Atraumatic; oropharynx clear with moist mucous membranes and no mucosal ulcerations/no oral thrush; normal hard and soft palate. Normal external ears. Neck: Decreased ROM due to pain. Lungs: CTA, with normal respiratory effort and no intercostal retractions CV: S1,S2. Abdomen: +BS. Soft, distended. Extremities: No peripheral edema. Skin: Normal temperature, turgor and texture; no rash, ulcers or subcutaneous nodules Psych: Appropriate affect, alert and oriented to person, place and time. Neuro: alert and oriented x 3. Grossly non-focal. - Constitutional Vitals: Vital Signs Temp Pulse Resp BP Pulse Ox 98.0 F 74 20 144/75 98 03/09/18 07:22 03/09/18 09:58 03/09/18 07:22 03/09/18 09:58 03/09/18 07:22 Temperature -Last 24 Hours Temperature 98.0 F Temperature 98.8 F Temperature 97.9 F Temperature 97.6 F - Labs CBC & Chem 7: 03/09/18 07:35 03/09/18 07:35 Labs: Abnormal lab results 03/06/18 03/08/18 03/09/18 Range/Units 04:17 16:52 07:35 WBC 3.6 L (4.5-11.0) K/mm3 RBC 2.58 L (3.65-5.03) M/mm3 Hgb 7.9 L (10.1-14.3) gm/dl Hct 24.6 L (30.3-42.9) % Lymphocytes % (Manual) 47.0 H (13.4-35.0) % Seg Neutrophils # Man 1.7 L (1.8-7.7) K/mm3 POC Glucose 69 L (70-105) CMV IgG Ab 9.70 H (<0.60) U/mL
--- NOTE | 2018-03-09 10:48 | Progress Note ---
Assessment and Plan Assessment and plan: Neck pain; likely from the LAD, symptomatic management. - CSF is negative for meningitis Sepsis. Etiology secondary to group B bacteremia presumably infective endocarditis. TTE with possible AV vegetation. UA negative. KRUPA unable to be completed. Strep group B Bacteremia; Blood cultures positive for group B streptococcus KRUPA attempted but could not pass probe despite multiple trials; procedure aborted Continue medical therapy for bacteremia and presumed aortic valve endocarditis. Infectious disease recommends IV antibiotics for 4 weeks. PICC line placement. Chronic kidney disease: Improving. Follow-up BMP Lymphoma; hematology/oncology consulted, ordered some tests and recommend outpatient follow-up in his office, lymph node biopsy was taken - pain control, follow-up lymph node biopsy. -CT chest showed extensive bilateral intrathoracic and axillary LNs. -CT abd showed massive retroperitoneal, mesenteric, portal, celiac and carey iliac LNs. -CT cervical carey cervical LNs. Hypertension. Continue antihypertensive medications. Diabetes mellitus type 2. Continue tight glycemic control. DVT prophylaxis - On heparin Disposition - Continue inpatient care, home IV antibiotics versus LTAC. History Interval history: 67-year-old female was presented to the emergency department complaining of fever and neck pain. SIRS evidenced by fever and tachycardia; resolved Bacteremia with GBSC; infectious disease doctor consulted and recommends 4 weeks of antibiotics. KRUPA with presumed aortic valve vegetation. Hospitalist Physical - Constitutional Vitals: Temp Pulse Resp BP Pulse Ox 98.0 F 74 20 144/75 98 03/09/18 07:22 03/09/18 09:58 03/09/18 07:22 03/09/18 09:58 03/09/18 07:22 General appearance: Present: no acute distress - EENT Eyes: Present: PERRL, EOM intact ENT: hearing intact, clear oral mucosa, dentition normal - Neck Neck: Present: supple, normal ROM - Respiratory Respiratory effort: normal Respiratory: bilateral: CTA - Cardiovascular Rhythm: regular Heart Sounds: Present: S1 & S2. Absent: gallop, rub - Extremities Extremities: no ischemia, No edema, Full ROM - Abdominal General gastrointestinal: soft, non-tender, non-distended, normal bowel sounds - Integumentary Integumentary: Present: clear, warm, dry - Neurologic Neurologic: CNII-XII intact, moves all extremities Results - Labs CBC & Chem 7: 03/09/18 07:35 03/09/18 07:35 Labs: Laboratory Last Values WBC 3.6 K/mm3 (4.5-11.0) L 03/09/18 07:35 RBC 2.58 M/mm3 (3.65-5.03) L 03/09/18 07:35 Hgb 7.9 gm/dl (10.1-14.3) L 03/09/18 07:35 Hct 24.6 % (30.3-42.9) L 03/09/18 07:35 MCV 95 fl (79-97) 03/09/18 07:35 MCH 31 pg (28-32) 03/09/18 07:35 MCHC 32 % (30-34) 03/09/18 07:35 RDW 14.7 % (13.2-15.2) 03/09/18 07:35 Plt Count 224 K/mm3 (140-440) 03/09/18 07:35 Lymph % (Auto) Court Bailiff Or Sheriff 03/06/18 04:17 Lymph # Court Bailiff Or Sheriff 03/06/18 04:17 Add Manual Diff Complete 03/09/18 07:35 Total Counted 100 03/09/18 07:35 Seg Neutrophils % Court Bailiff Or Sheriff 03/09/18 07:35 Seg Neuts % (Manual) 47.0 % (40.0-70.0) 03/09/18 07:35 Band Neutrophils % 0 % 03/09/18 07:35 Lymphocytes % (Manual) 47.0 % (13.4-35.0) H 03/09/18 07:35 Reactive Lymphs % (Man) 1.0 % 03/09/18 07:35 Monocytes % (Manual) 1.0 % (0.0-7.3) 03/09/18 07:35 Eosinophils % (Manual) 4.0 % (0.0-4.3) 03/09/18 07:35 Basophils % (Manual) 0 % (0.0-1.8) 03/09/18 07:35 Metamyelocytes % 0 % 03/09/18 07:35 Myelocytes % 0 % 03/09/18 07:35 Promyelocytes % 0 % 03/09/18 07:35 Blast Cells % 0 % 03/09/18 07:35 Nucleated RBC % Not Reportable 03/09/18 07:35 Seg Neutrophils # Man 1.7 K/mm3 (1.8-7.7) L 03/09/18 07:35 Band Neutrophils # 0.0 K/mm3 03/09/18 07:35 Lymphocytes # (Manual) 1.7 K/mm3 (1.2-5.4) 03/09/18 07:35 Abs React Lymphs (Man) 0.0 K/mm3 03/09/18 07:35 Monocytes # (Manual) 0.0 K/mm3 (0.0-0.8) 03/09/18 07:35 Eosinophils # (Manual) 0.1 K/mm3 (0.0-0.4) 03/09/18 07:35 Basophils # (Manual) 0.0 K/mm3 (0.0-0.1) 03/09/18 07:35 Metamyelocytes # 0.0 K/mm3 03/09/18 07:35 Myelocytes # 0.0 K/mm3 03/09/18 07:35 Promyelocytes # 0.0 K/mm3 03/09/18 07:35 Blast Cells # 0.0 K/mm3 03/09/18 07:35 Pathologist Review 03/02/18 04:04 WBC Morphology Not Reportable 03/09/18 07:35 Hypersegmented Neuts Not Reportable 03/09/18 07:35 Hyposegmented Neuts Not Reportable 03/09/18 07:35 Hypogranular Neuts Not Reportable 03/09/18 07:35 Smudge Cells Not Reportable 03/09/18 07:35 Toxic Granulation Not Reportable 03/09/18 07:35 Toxic Vacuolation Not Reportable 03/09/18 07:35 Dohle Bodies Not Reportable 03/09/18 07:35 Pelger-Huet Anomaly Not Reportable 03/09/18 07:35 Mina Rods Not Reportable 03/09/18 07:35 Platelet Estimate Cons 03/09/18 07:35 Clumped Platelets Not Reportable 03/09/18 07:35 Plt Clumps, EDTA Not Reportable 03/09/18 07:35 Large Platelets Not Reportable 03/09/18 07:35 Giant Platelets Not Reportable 03/09/18 07:35 Platelet Satelliting Not Reportable 03/09/18 07:35 Plt Morphology Comment Not Reportable 03/09/18 07:35 RBC Morphology Not Reportable 03/09/18 07:35 Dimorphic RBCs Not Reportable 03/09/18 07:35 Polychromasia Not Reportable 03/09/18 07:35 Hypochromasia Not Reportable 03/09/18 07:35 Poikilocytosis Not Reportable 03/09/18 07:35 Anisocytosis 1+ 03/09/18 07:35 Microcytosis Not Reportable 03/09/18 07:35 Macrocytosis Not Reportable 03/09/18 07:35 Spherocytes Not Reportable 03/09/18 07:35 Pappenheimer Bodies Not Reportable 03/09/18 07:35 Sickle Cells Not Reportable 03/09/18 07:35 Target Cells Not Reportable 03/09/18 07:35 Tear Drop Cells Not Reportable 03/09/18 07:35 Ovalocytes Not Reportable 03/09/18 07:35 Helmet Cells Not Reportable 03/09/18 07:35 [place] Bodies Not Reportable 03/09/18 07:35 [place] Rings Not Reportable 03/09/18 07:35 [place] Cells Not Reportable 03/09/18 07:35 Bite Cells Not Reportable 03/09/18 07:35 Crenated Cell Not Reportable 03/09/18 07:35 Elliptocytes Not Reportable 03/09/18 07:35 Acanthocytes (Spur) Not Reportable 03/09/18 07:35 Rouleaux Not Reportable 03/09/18 07:35 Hemoglobin C Crystals Not Reportable 03/09/18 07:35 Schistocytes Not Reportable 03/09/18 07:35 Malaria parasites Not Reportable 03/09/18 07:35 ESR 78 mm/Hr (0-20) 03/03/18 05:20 [place] Bodies Not Reportable 03/09/18 07:35 Hem Pathologist Commnt No 03/09/18 07:35 Sodium 141 mmol/L (137-145) 03/09/18 07:35 Potassium 4.4 mmol/L (3.6-5.0) 03/09/18 07:35 Chloride 105.4 mmol/L (98-107) 03/09/18 07:35 Carbon Dioxide 22 mmol/L (22-30) 03/09/18 07:35 Anion Gap 18 mmol/L 03/09/18 07:35 BUN 9 mg/dL (7-17) 03/09/18 07:35 Creatinine 1.1 mg/dL (0.7-1.2) 03/09/18 07:35 Estimated GFR 60 ml/min 03/09/18 07:35 BUN/Creatinine Ratio 8 % 03/09/18 07:35 Glucose 74 mg/dL (65-100) 03/09/18 07:35 POC Glucose 71 (70-105) 03/09/18 05:25 Hemoglobin A1c 6.4 % (4-6) H 03/02/18 00:31 Lactic Acid 0.50 mmol/L (0.7-2.0) L 03/01/18 12:55 Calcium 9.1 mg/dL (8.4-10.2) 03/09/18 07:35 Total Bilirubin 0.60 mg/dL (0.1-1.2) 03/02/18 04:04 AST 11 units/L (5-40) 03/02/18 04:04 ALT 7 units/L (7-56) 03/02/18 04:04 Alkaline Phosphatase 73 units/L (35-129) 03/02/18 04:04 Lactate Dehydrogenase 141 units/L (91-180) 03/03/18 05:20 Total Creatine Kinase 38 units/L (30-135) 03/01/18 12:55 Total Protein 6.3 g/dL (6.3-8.2) 03/02/18 04:04 Albumin 3.8 g/dL (3.9-5) L 03/02/18 04:04 Albumin/Globulin Ratio 1.5 % 03/02/18 04:04 Jrru-3-Xhyhkitqnnygg 7.46 mg/L (<=2.51) H 03/03/18 05:20 Urine Color Yellow (Yellow) 03/01/18 Unknown Urine Turbidity Clear (Clear) 03/01/18 Unknown Urine pH 5.0 (5.0-7.0) 03/01/18 Unknown Ur Specific [place] 1.016 (1.003-1.030) 03/01/18 Unknown Urine Protein 30 mg/dl mg/dL (Negative) 03/01/18 Unknown Urine Glucose (UA) Neg mg/dL (Negative) 03/01/18 Unknown Urine Ketones Neg mg/dL (Negative) 03/01/18 Unknown Urine Blood Neg (Negative) 03/01/18 Unknown Urine Nitrite Neg (Negative) 03/01/18 Unknown Urine Bilirubin Neg (Negative) 03/01/18 Unknown Urine Urobilinogen < 2.0 mg/dL (<2.0) 03/01/18 Unknown Ur Leukocyte Esterase Neg (Negative) 03/01/18 Unknown Urine WBC (Auto) 2.0 /HPF (0.0-6.0) 03/01/18 Unknown Urine RBC (Auto) 6.0 /HPF (0.0-6.0) 03/01/18 Unknown U Epithel Cells (Auto) 2.0 /HPF (0-13.0) 03/01/18 Unknown Urine Bacteria (Auto) 1+ /HPF (Negative) 03/01/18 Unknown Urine Mucus Few /HPF 03/01/18 Unknown CSF Appearance Clear 03/01/18 17:45 CSF Color Colorless 03/01/18 17:45 CSF WBC 1 /mm3 (1-10) 03/01/18 17:45 CSF RBC 0 /mm3 (0-0) 03/01/18 17:45 CSF Seg Neutrophils 0 % (0-6) 03/01/18 17:45 CSF Lymphocytes % 0 % (40-80) 03/01/18 17:45 CSF Reactive Lymphs 0 % 03/01/18 17:45 CSF Monocytes % 0 % (15-45) 03/01/18 17:45 CSF Eosinophils % 0 % 03/01/18 17:45 CSF Basophils 0 % 03/01/18 17:45 CSF Comment No cells seen 03/01/18 17:45 CSF Pathologist Review C 03/01/18 17:45 CSF Glucose 91 mg/dL 03/01/18 17:45 CSF Total Protein 33 mg/dL 03/01/18 17:45 CMV IgG Ab 9.70 U/mL (<0.60) H 03/06/18 04:17 CMV IgM Ab <30.00 AU/mL (<30.00) 03/06/18 04:17 EBV Capsid Ag IgG, IgM <36.00 U/mL (<36.00) 03/06/18 04:17 EBV Capsid Ag IgG Titer >750.00 U/mL (<18.00) H 03/06/18 04:17 EBV Nuclear Ag IgG Indx 22.20 U/mL (<18.00) H 03/06/18 04:17
--- NOTE | 2018-03-09 11:46 | Progress Note ---
Assessment and Plan - Patient Problems (1) Back pain Current Visit: Yes Status: Acute Qualifiers: Back pain location: thoracic back pain Chronicity: unspecified Back pain laterality: unspecified Qualified Code(s): M54.6 - Pain in thoracic spine Plan to address problem: Pain control. See notes. (2) QUIRINO (acute kidney injury) Current Visit: Yes Status: Acute Plan to address problem: corrective measures. (3) Neck pain Current Visit: Yes Status: Acute Plan to address problem: See notes. Awaiting bx report. see notes. Subjective Date of service: 03/09/18 Principal diagnosis: diffuse lymphadenopathy./fever. Interval history: Patient seen, resting in bed, records reviewed, s/p LN bx , awaiting path report. Continue with cerrent management until path report out. Ct of abd/ pelvic reviewed, with multiple Ln, probably related to the same LN in the axilla /chest/cervical.Once her renal numbers improve, will benefit from contrast CT. Patient seen, resting in bed, still complains of MSK pain, LN bx completed, I am unable to view the path report.Will speak with pathology people tomorrow. patient seen, resting in bed, still complaining of pain, no path report yet. Patient seen/examined, records reviewed, case d/w patient, she looks much better , pain level down. Still no path report. Patient seen, resting in bed, labs reviewed, and as per my conversation with pathology, result consistent CLL. i have d/w her, She will need out patient management, including her pain. Disposition, as per you. She will need to follow up with me. Objective - Constitutional Vitals: Vital Signs - 12hr 03/09/18 03/09/18 03/09/18 01:16 07:22 09:57 Temperature 98.8 F 98.0 F Pulse Rate 75 64 74 Respiratory 16 20 Rate Blood Pressure 150/77 140/77 144/75 O2 Sat by Pulse 98 98 Oximetry 03/09/18 09:58 Temperature Pulse Rate 74 Respiratory Rate Blood Pressure 144/75 O2 Sat by Pulse Oximetry General appearance: Present: mild distress - EENT Eyes: PERRL, EOM intact ENT: hearing intact, clear oral mucosa Ears: bilateral: normal - Neck Neck: supple, normal ROM - Respiratory Respiratory effort: normal Respiratory: bilateral: CTA - Breasts Breasts: deferred - Cardiovascular Rhythm: regular Heart Sounds: Present: S1 & S2. Absent: gallop, rub Extremities: pulses intact, No edema, normal color, Full ROM - Gastrointestinal General gastrointestinal: Present: soft, non-tender, non-distended, normal bowel sounds Rectal Exam: deferred - Genitourinary Female genitourinary: deferred - Integumentary Integumentary: clear, warm, dry - Musculoskeletal Musculoskeletal: 1, strength equal bilaterally - Neurologic Neurologic: moves all extremities - Psychiatric Psychiatric: memory intact, appropriate mood/affect, intact judgment & insight - Labs CBC & Chem 7: 03/09/18 07:35 03/09/18 07:35 Labs: Abnormal lab results 03/06/18 03/08/18 03/09/18 Range/Units 04:17 16:52 07:35 WBC 3.6 L (4.5-11.0) K/mm3 RBC 2.58 L (3.65-5.03) M/mm3 Hgb 7.9 L (10.1-14.3) gm/dl Hct 24.6 L (30.3-42.9) % Lymphocytes % (Manual) 47.0 H (13.4-35.0) % Seg Neutrophils # Man 1.7 L (1.8-7.7) K/mm3 POC Glucose 69 L (70-105) CMV IgG Ab 9.70 H (<0.60) U/mL 03/09/18 Range/Units 11:33 WBC (4.5-11.0) K/mm3 RBC (3.65-5.03) M/mm3 Hgb (10.1-14.3) gm/dl Hct (30.3-42.9) % Lymphocytes % (Manual) (13.4-35.0) % Seg Neutrophils # Man (1.8-7.7) K/mm3 POC Glucose 56 L (70-105) CMV IgG Ab (<0.60) U/mL
[2018-03-09] MEDS: ROCEPHIN/NS 2 GM/100 ML 2 GM/100 ML BAG IV SCH (13:37)
[2018-03-09] MEDS: COZAAR PO SCH (13:40)
--- NOTE | 2018-03-09 19:31 | Magnetic Resonance Report ---
FINAL REPORT EXAM: MR CERVICAL SPINE WO CON HISTORY: neck pain patient with strep septicemia and new diagnosis of CLL. TECHNIQUE: T1 and T2 weighted sagittal and T2 weighted axial images of the cervical spine were obtained. Comparison: CT cervical spine dated March 01, 2018 FINDINGS: Visualization detail on all of the sequences is limited by motion artifact. Marrow signal is normal. There is reversal of the normal lordotic curve of the cervical spine. The vertebral heights are maintained. There is loss of height of the C5-C6 disc. There is multiple level canal and foraminal stenosis secondary to spondylitic change. There is a large central disc protrusion/herniation at C3-C4 with superior migration posterior to the inferior body of C3. This result in impingement on the anterior aspect of the cervical cord at this level. There is mild canal stenosis at C2-C3, C4-C5 and C6-C7 secondary to spondylitic change. There is moderate canal stenosis at C5-C6 the secondary to spondylitic change. This cervical cord is normal size and appears to be normal signal. The paraspinous soft tissues are notable for fluid signal in the prevertebral soft tissues extending from C3 inferiorly to C5. This was not clearly demonstrated on the CT next dated March 01, 2018. Again noted is the bilateral cervical bulky adenopathy. IMPRESSION: 1. Study significantly degraded by motion artifact. 2. Cervical spondylosis with multiple level canal and foraminal stenosis. 3. Large central disc protrusion/herniation at C3-C4 with impingement on the cervical cord at this level. 4. Fluid signal in the prevertebral soft tissues extending from C3-C5. This is suggestive of edema in this region. This was not clearly demonstrated on the CT cervical spine dated March 01, 2018. 5. Bilateral cervical bulky adenopathy corresponding to the patient's diagnosis of CLL.
[2018-03-09] MEDS: NACL 0.9% 1000 ML 1,000 ML IV SCH (20:58)
[2018-03-09] MEDS: PRAVACHOL PO SCH (22:48)
[2018-03-10 06:15] LABS: Hematocrit 24.6 % (30.3-42.9); Mean Corpuscular HGB Conc 33 % (30-34); Mean Corpuscular Hemoglobin 31 pg (28-32); Mean Corpuscular Volume 95 fl (79-97); Platelet Count 215 K/mm3 (140-440); Red Blood Count 2.59 M/mm3 (3.65-5.03); Red Cell Distribution Width 14.5 % (13.2-15.2)
[2018-03-10] MEDS: FLEXERIL PO SCH ×2 (08:19→15:22)
[2018-03-10] MEDS: MORPHINE IV PRN (08:19)
[2018-03-10] MEDS: AMARYL PO SCH (08:19)
[2018-03-10 08:37] LABS: Basophils % (Manual) 0 % (0.0-1.8); Total Cells Counted 100
[2018-03-10 08:38] LABS: Anisocytosis 1+; Eosinophils % (Manual) 0 % (0.0-4.3); Hypochromasia 1+; Macrocytosis 1+
[2018-03-10 08:39] LABS: Ovalocytes Few; Platelet Estimate Consistent w Auto; Tear Drop Cells Few
--- NOTE | 2018-03-10 08:43 | Discharge Summary ---
Providers - Providers Date of Admission: 03/01/18 19:35 Date of discharge: 03/10/18 Attending physician: JELENA GARCIA 03/02/18 07:27 Consult to Physician [CONS] Routine Comment: called dr. mascorro/ fernando Consulting Provider: JARETH NAVAS Physician Instructions: Reason For Exam: fever, neck pain 03/02/18 15:13 Consult to Physician [CONS] Routine Comment: GENNY Consulting Provider: FERNANDO GARCIA Physician Instructions: CONSULT WAS CALLED TO DR GARCIA [phone] Reason For Exam: lymphoma 03/03/18 Consult to Physician [CONS] Routine Comment: called answ. serv./ spoke to joel @0801/fernando Consulting Provider: ISAIAS SHAW Physician Instructions: Reason For Exam: axilliary.cervical LN.Needs CT guided needle bx . 03/03/18 17:59 Consult to Physician [CONS] Routine Comment: called dr willett @1810/ fernando Consulting Provider: LOPEZ WILLETT Physician Instructions: Reason For Exam: aortic valve thickening, for KRUPA 03/09/18 09:55 Consult to PICC Line RN [CONS] Routine Reason For Exam: Nursing Home antibiotics for sepsis Type Line:: PICC Primary care physician: [employer]INE Hospitalization Reason for admission: neck pain Condition: Fair Hospital course: 67 y/o female with history of hypertension, diabetes, hyperlipidemia; admitted on 03/01/18 due to severe neck pain for 2 days prior to admission. She denied headache, photophobia, sick contact, recent fever. Denied cough, SOB, N/V/D, abdominal pain. She took OTC pain meds w/o improvement. In the ED, temp 101.5, HR 84, R 20, BP 166/138. WBC 9. Hg 10.3. Plat 234. Creat 1.6. CXR showed mild cardiomegly. CT head enlarged pituitary gland. Underwent LP CSF demonstrated 1 WBC, normal glucose and protein. CT chest showed extensive bilateral intrathoracic and axillary LNs. CT abd showed massive retroperitoneal, mesenteric, portal, celiac and carey iliac LNs. The patient was seen by infectious disease and oncology in consultation. The patient underwent axillary lymph node biopsy on 03/03/2018. Preliminary reports likely CLL. Patient is to follow with oncology as an outpatient. Also, patient on hospital stay included sepsis with strep bacteremia. Patient was noted to have strep group B bacteremia with some question of infective endocarditis. TTE showed possible AV vegetation. A fourth, KRUPA was unable to be completed because probe could not be passed despite multiple trials and therefore seizure was aborted. Cardiology was consulted and recommended continue medical therapy for bacteremia and presumed aortic valve endocarditis. Infectious disease recommended 4 weeks of antibiotics. Patient had PICC line placement and will be discharged with antibiotics. Patient is to follow-up as an outpatient with oncology for ongoing treatment of the CLL. Etiology of neck pain is likely associated to the lymphadenopathy. Dedicated discharge time 35 minutes. Disposition: DC-01 TO HOME OR SELFCARE Time spent for discharge: 35 - Discharge Diagnoses (1) Sepsis Status: Acute Qualifiers: Sepsis type: Streptococcus group B Qualified Code(s): A40.1 - Sepsis due to streptococcus, group B (2) QUIRINO (acute kidney injury) Status: Acute (3) Back pain Status: Acute Qualifiers: Back pain location: thoracic back pain Chronicity: unspecified Back pain laterality: unspecified Qualified Code(s): M54.6 - Pain in thoracic spine (4) CKD (chronic kidney disease) Status: Acute Qualifiers: Chronic kidney disease stage: unspecified stage Qualified Code(s): N18.9 - Chronic kidney disease, unspecified (5) Cervical lymphadenopathy Status: Acute (6) Intractable pain Status: Acute (7) Enlarged pituitary gland Status: Chronic (8) HLD (hyperlipidemia) Status: Chronic Qualifiers: Hyperlipidemia type: mixed hyperlipidemia Qualified Code(s): E78.2 - Mixed hyperlipidemia (9) HTN (hypertension) Status: Chronic Qualifiers: Hypertension type: essential hypertension Qualified Code(s): I10 - Essential (primary) hypertension Core Measure Documentation - Palliative Care Palliative Care/ Comfort Measures: Not Applicable - Core Measures Any of the following diagnoses?: none Exam - Constitutional Vitals: Temp Pulse Resp BP Pulse Ox 98.0 F 74 18 143/74 98 03/10/18 07:14 03/10/18 07:14 03/10/18 07:14 03/10/18 07:14 03/10/18 07:14 General appearance: Present: no acute distress, well-nourished - EENT Eyes: Present: PERRL ENT: hearing intact, clear oral mucosa - Neck Neck: Present: supple, normal ROM - Respiratory Respiratory effort: normal Respiratory: bilateral: CTA - Cardiovascular Heart Sounds: Present: S1 & S2. Absent: rub, click - Extremities Extremities: pulses symmetrical, No edema Peripheral Pulses: within normal limits - Abdominal General gastrointestinal: Present: soft, non-tender, non-distended, normal bowel sounds Female genitourinary: Present: normal - Integumentary Integumentary: Present: clear, warm, dry - Musculoskeletal Musculoskeletal: gait normal, strength equal bilaterally - Psychiatric Psychiatric: appropriate mood/affect, intact judgment & insight - Neurologic Neurologic: CNII-XII intact, moves all extremities Plan Activity: advance as tolerated Weight Bearing Status: Weight Bear as Tolerated Diet: regular Durable Medical Equipment Needed Upon Discharge: other (IV abx) Follow up with: PRIMARY CAREMD [Primary Care Provider] - 3-5 Days JOSE CLEMENTE MD [Staff Physician] - 7 Days FERNANDO GARCIA DO [Staff Physician] - 7 Days BRIAN FAULKNER MD [Staff Physician] - 7 Days Prescriptions: Amlodipine Besylate [Norvasc] 10 mg PO DAILY #30 tablet Carvedilol [Coreg] 6.25 mg PO BID #60 tablet cefTRIAXone/NS 2 GM/100 ML [Rocephin/Ns 2 gm/100 ml] 2 gm IV Q24HR #20 piggyback Clopidogrel [Plavix] 75 mg PO QDAY #30 tablet Cyclobenzaprine [Flexeril 10 MG TAB] 10 mg PO TID #90 tablet Glimepiride [Amaryl] 2 mg PO QAM #30 tablet Losartan [Cozaar] 100 mg PO QDAY #30 tablet oxyCODONE /ACETAMINOPHEN [Percocet 5/325 mg] 2 tab PO Q6H PRN #30 tablet PRN Reason: Pain, Moderate (4-6) Polyethylene Glycol 3350 [Miralax 3350] 17 gm PO BID PRN #60 powd.pack PRN Reason: constipation Pravastatin [Pravachol] 80 mg PO QHS #30 tablet
[2018-03-10] MEDS: CEPHULAC PO SCH (09:16)
[2018-03-10] MEDS: PLAVIX PO SCH (09:16)
[2018-03-10] MEDS: LOVENOX SUB-Q SCH (09:16)
[2018-03-10] MEDS: NORVASC PO SCH (09:17)
[2018-03-10] MEDS: COREG PO SCH (09:18)
[2018-03-10] MEDS: COZAAR PO SCH (09:18)
[2018-03-10] MEDS: ROCEPHIN/NS 2 GM/100 ML 2 GM/100 ML BAG IV SCH (09:47)
[2018-03-10] MEDS: NACL 0.9% 1000 ML 1,000 ML IV SCH (09:48)
--- NOTE | 2018-03-10 13:02 | XRay Report ---
PORTABLE CHEST INDICATION: Right arm PICC placement. COMPARISON: 03/01/2018 FINDINGS: Portable, frontal chest radiograph demonstrates new right upper extremity PICC extending into the SVC, though its tip not well seen overlying the spine. Stable mild exaggerated cardiomediastinal silhouette/possible cardiomegaly. Clear lungs. Stable bony degenerative changes. CONCLUSION: Interval uncomplicated right upper extremity PICC placement, as described. Thank you for the opportunity to participate in this patient's care.
--- NOTE | 2018-03-10 13:06 | Progress Note ---
Assessment and Plan Strep group B bacteremia KRUPA attempted but could not pass probe despite multiple trials; procedure aborted Cervical lymphadenopathy, bilateral Anemia Hypertension Diabetes Echocardiogram reports a possible aortic valve vegetation. There is a normal left ventricular systolic function, ejection fraction 50-55%. Conservative cardiac management. Subjective Date of service: 03/10/18 Principal diagnosis: Fever Interval history: Patient has no cardiac complaints. Objective Vital Signs Temp Pulse Resp BP Pulse Ox 03/10/18 09:18 76 144/64 03/10/18 09:17 78 144/64 03/10/18 07:14 98.0 F 74 18 143/74 98 03/10/18 03:44 98.4 F 76 18 159/77 97 03/09/18 22:50 80 154/80 03/09/18 22:00 99 03/09/18 20:06 98.7 F 20 152/80 03/09/18 20:00 80 97 03/09/18 13:40 134/70 - Physical Examination General: No Apparent Distress HEENT: Positive: PERRL Cardiac: Positive: Reg Rate and Rhythm Neuro: Positive: Grossly Intact Extremities: Absent: edema - Labs and Meds CBC 03/10/18 Range/Units 04:39 WBC 3.4 L (4.5-11.0) K/mm3 RBC 2.59 L (3.65-5.03) M/mm3 Hgb 8.0 L (10.1-14.3) gm/dl Hct 24.6 L (30.3-42.9) % Plt Count 215 (140-440) K/mm3
[2018-03-10] MEDS: SODIUM CHLORIDE FLUSH SYRINGE 10 ML IV SCH (13:17)
[2018-03-10 14:36] VITALS: BP 152/72
== END 2018-03-10 15:20 | disposition home health service (06) | DRG 853 ==
LOC: ED 12:27 → 2B-ACE 19:35
PROVIDERS: ADMIT Internal Medicine; ATTEND Hospitalist
PROC: 009U3ZZ Drainage of Spinal Canal, Percutaneous Approach (ICD-10-PCS; 2018-03-01)
PROC: 07B63ZX Excision of Left Axillary Lymphatic, Percutaneous Approach, Diagnostic (ICD-10-PCS; principal; 2018-03-03)
PROC: 02HV33Z Insertion of Infusion Device into Superior Vena Cava, Percutaneous Approach (ICD-10-PCS; 2018-03-10)
DX: A40.1 Sepsis due to streptococcus, group B (principal); I33.0 Acute and subacute infective endocarditis; C85.90 Non-Hodgkin lymphoma, unspecified, unspecified site; R78.81 Bacteremia; N17.9 Acute kidney failure, unspecified; I12.9 Hypertensive chronic kidney disease with stage 1 through stage 4 chronic kidney disease, or unspecified chronic kidney disease; M54.2 Cervicalgia; M54.9 Dorsalgia, unspecified; E11.22 Type 2 diabetes mellitus with diabetic chronic kidney disease; R59.0 Localized enlarged lymph nodes; E78.2 Mixed hyperlipidemia; B95.1 Streptococcus, group B, as the cause of diseases classified elsewhere; R93.0 Abnormal findings on diagnostic imaging of skull and head, not elsewhere classified; M54.6 Pain in thoracic spine; Z79.84 Long term (current) use of oral hypoglycemic drugs; Z86.73 Personal history of transient ischemic attack (TIA), and cerebral infarction without residual deficits
CPT/HCPCS: 36415; 38505; 70450; 71045; 71250; 72072; 72100; 72125; 72141; 74176; 76942; 80048; 80053; 81001; 82140; 82232; 82550; 82947; 82962; 83036; 83615; 84160; 85007; 85025; 85652; 86300; 86644; 86645; 86664; 86665; 87040; 87116; 88305; 89051; 93306; 93312; 93320; 93325; 96361; 96365; 96367; 96375; 96376; A9270-GY; J0690; J0696; J1650; J2250; J2270; J2704; J3370; J7030; J7040

== ENCOUNTER 2018-05-02 17:57 | Emergency (ER) | payer MEDICARE ==
[2018-05-02 18:41] VITALS: BP 136/83
[2018-05-02 19:42] LABS: Hematocrit 30.9 % (30.3-42.9); Hemoglobin 10.2 gm/dl (10.1-14.3); Mean Corpuscular HGB Conc 33 % (30-34); Mean Corpuscular Hemoglobin 30 pg (28-32); Mean Corpuscular Volume 90 fl (79-97); Platelet Count 283 K/mm3 (140-440); Red Blood Count 3.45 M/mm3 (3.65-5.03); Red Cell Distribution Width 16.6 % (13.2-15.2)
[2018-05-02 19:59] LABS: INR 1.09 (0.87-1.13)
[2018-05-02 20:00] LABS: Albumin 3.8 g/dL (3.9-5)
[2018-05-02 21:40] LABS: Basophils % (Manual) 0 % (0.0-1.8); Total Cells Counted 100
[2018-05-02 21:41] LABS: Platelet Estimate Consistent w Auto; Tear Drop Cells Rare
== END 2018-05-02 21:00 | disposition left against medical advice (07) ==
LOC: ED 17:57
DX: R22.42 Localized swelling, mass and lump, left lower limb (principal); Z53.21 Procedure and treatment not carried out due to patient leaving prior to being seen by health care provider
CPT/HCPCS: 36415; 80053; 85007; 85025; 85610; 85730